=== PATIENT | female | born 1985 | race African-American/Black ===

== ENCOUNTER 2016-02-21 07:34 | Emergency (ER) | payer OTHER ==
[2016-02-21 07:47] VITALS: TEMP 97.8; BMI 38.7
[2016-02-21 08:24] LABS: BASOPHIL 0.4 % (0-2.0); EOSINOPHIL 2.2 % (0-4.5); MCH 28.7 pg (25.7-33.7); MCHC 32.9 g/dl (32.0-36.0); MEAN CELL VOLUME 87.1 fl (80-96); MEAN PLT VOLUME 7.4 fl (7.5-11.1); PLATELET COUNT 247 K/MM3 (134-434); RDW 13.4 % (11.6-15.6); WHITE BLOOD COUNT 7.8 K/mm3 (4.0-10.0)
[2016-02-21 08:25] LABS: URINE APPEARANCE CLEAR; URINE BILIRUBIN NEGATIVE (NEGATIVE); URINE BLOOD NEGATIVE (NEGATIVE); URINE COLOR LTYELLOW; URINE GLUCOSE (UA) NEGATIVE (NEGATIVE); URINE KETONE NEGATIVE (NEGATIVE); URINE LEUK ESTERASE NEGATIVE (NEGATIVE); URINE NITRITE NEGATIVE (NEGATIVE); URINE PROTEIN NEGATIVE (NEGATIVE); URINE UROBILINOGEN NEGATIVE E.U./dl (0.2-1.0)
--- NOTE | 2016-02-21 08:26 | PDOC ---
History of Present Illness - General Chief Complaint: Vaginal Bleeding Stated Complaint: VAGINAL BLEEDING (6 WEEKS PREG0 Time Seen by Provider: 02/21/16 07:53 History Source: Patient Exam Limitations: No Limitations - History of Present Illness Initial Comments: CHIEF COMPLAINT: 30 y/o afebrile approximately 7 week female with LMP 12/30/15 c/o light vaginal bleeding today. HISTORY OF PRESENT ILLNESS: The patient states she wiped this morning after going to the bathroom and saw light pink blood on the toilet paper. She denies f/c, n/v/d, CP, SOB, abd pain, back pain, hematuria, dysuria. The patient's first appointment is scheduled for 02/27/16. Vital signs on arrival are within normal limits. REVIEW OF SYSTEMS: GENERAL/CONSTITUTIONAL: No fever/chills. No weakness. No weight change. HEAD, EYES, EARS, NOSE AND THROAT: No change in vision. No ear pain or discharge. No sore throat. CARDIOVASCULAR: No chest pain or shortness of breath. RESPIRATORY: No cough, wheezing, or hemoptysis. GASTROINTESTINAL: No abd pain, nausea, vomiting, diarrhea, constipation. + vaginal spotting. GENITOURINARY: No dysuria, frequency, or change in urination. MUSCULOSKELETAL: No joint or muscle swelling or pain. No neck or back pain. SKIN: No rash or easy bruising. PHYSICAL EXAM: GENERAL: The patient is awake, alert, and fully oriented, in no acute distress. She is morbidly obese, ambulatory, in NAD or obvious discomfort. HEAD: Normal with no signs of trauma. ENT: Pupils equal, round and reactive to light, extraocular movements intact, sclera anicteric, conjunctiva clear. Neck supple. LUNGS: Clear to auscultation bilaterally. Normal excursion. No respiratory distress or use of accessory muscles. CV: RRR, S1/S2, no MRG. Cap refill < 2 sec. ABDOMEN: Soft, non-distended, non-tender even to deep palpation, no hepatomegaly or splenomegaly, no masses. VAGINAL: Scant brown blood in vaginal canal. Os closed. EXTREMITIES: Normal range of motion, no edema. NEUROLOGICAL: Normal speech, normal gait. CN II-XII grossly intact. PSYCH: Normal mood, normal affect. SKIN: Warm, dry, normal turgor, no rashes or lesions noted. Past History - Past Medical History Allergies/Adverse Reactions: Allergies Allergy/AdvReac Type Severity Reaction Status Date / Time No Known Allergies Allergy Verified 02/21/16 07:42 Home Medications: Ambulatory Orders NK [No Known Home Medication] 01/13/15 Asthma: No - Surgical History Abdominal Surgery: Yes - Reproductive History (#): 2 Para: 0 Therapeutic (s) & number: No Spontaneous : 0 - Psycho/Social/Smoking Cessation Hx Anxiety: No Suicidal Ideation: No Smoking History: Never smoked Have you smoked in the past 12 months: No Number of Cigarettes Smoked Daily: 3 If you are a former smoker, when did you quit?: 07/2013 Hx Alcohol Use: No Drug/Substance Use Hx: No Substance Use Type: None *Physical Exam - Vital Signs Last Vital Signs Temp Pulse Resp BP Pulse Ox 97.8 F 90 20 118/71 100 02/21/16 07:39 02/21/16 07:39 02/21/16 07:39 02/21/16 07:39 02/21/16 07:39 ED Treatment Course - LABORATORY CBC & Chemistry Diagram: 02/21/16 08:05 02/21/16 08:08 - RADIOLOGY Radiology Studies Ordered: Category Date Time Status TRANSVAGINAL US PREG [US] Stat Ultrasound 02/21/16 07:54 Ordered Medical Decision Making - Medical Decision Making A/P: 30 y/o approximately 7 week female with vaginal spotting this morning. Plan is as follows: 1. labs 2. UA/culture 3. Beta 4. type and screen 5. transvaginal ultrasound Transvaginal Ultrasound IMPRESSION: No intrauterine gestational sac is identified. Ectopic vs miscarriage vs early . Beta hcg 01/27 = 3000 beta hcg 02/20 = 549 Gave the patient her results. Instructed her that she may be miscarrying but would need to keep her f/u appointment on 02/26 to confirm. Instructed her to return to the ER immediately with any worsening or concerning symptoms. The patient verbalizes understanding of all instructions, has no further questions and is awaiting discharge. *DC/Admit/Observation/Transfer Diagnosis at time of Disposition: Threatened in first trimester - Discharge Dispostion Disposition: HOME Condition at time of disposition: Stable Admit: No - Referrals Referrals: Mary Bronson MD [Primary Care Provider] - - Patient Instructions Printed Discharge Instructions: DI for Threatened Additional Instructions: Discharge Instructions: -Your beta hcg on 01/27 was 3000. Your beta hcg on 02/20 was 549. This suggests miscarriage. 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 -Return to the ER immediately with any worsening or concerning symptoms
[2016-02-21 08:44] LABS: ALBUMIN 3.5 g/dl (3.4-5.0); ALK PHOS 88 U/L (45-117); ANION GAP 9 (8-16); BILIRUBIN,TOTAL 0.2 mg/dL (0.2-1.0); CALCIUM 8.2 mg/dL (8.5-10.1); CO2 26 mmol/L (21-32); CREATININE 0.6 mg/dL (0.55-1.02); GLUCOSE,RANDOM 100 mg/dL (74-106); SGOT/AST 13 U/L (15-37); SGPT/ALT 29 U/L (12-78); TOT PROT 6.8 g/dl (6.4-8.2)
[2016-02-21 10:37] VITALS: BP 113/76; PULSE 91
== END 2016-02-21 10:37 | disposition home or self-care (01) ==
LOC: JER 07:34
DX: O20.0 Threatened abortion (principal); Z3A.01 Less than 8 weeks gestation of pregnancy
CPT/HCPCS: 36415; 76817-TC; 80053; 81003; 84702; 85025; 86850; 86900; 86901; 99283-25

== ENCOUNTER 2016-03-07 14:24 | Emergency (ER) | payer OTHER ==
[2016-03-07 14:50] VITALS: BP 125/72; PULSE 95; TEMP 98.7; BMI 38.7
--- NOTE | 2016-03-07 17:04 | PDOC ---
[id number] 4d ABD PAIN Time Seen by Provider: 03/07/16 16:42 History Source: Patient Exam Limitations: No Limitations - History of Present Illness Initial Comments: 03/07/16 17:03 CHIEF COMPLAINT: Vaginal bleeding HISTORY OF PRESENT ILLNESS: This is a previously healthy 30 year old female who was seen here on 02/20 for vaginal bleeding in . She was found to have falling hcg levels and was told that she was likely having a spontaneous . She did follow up with obstetrics/gynecology nurse, but states she was never told definitively whether she had a miscarriage. There is no documented IUP here. She presents today complaining of light vaginal bleeding, RLQ cramping pain, and dysuria. She denies fevers/chills or any other symptoms. V/s on arrival are notable for P 95. REVIEW OF SYSTEMS: GENERAL/CONSTITUTIONAL: No fever or chills. No weakness. No weight change. HEAD, EYES, EARS, NOSE AND THROAT: No change in vision. No ear pain or discharge. No sore throat. CARDIOVASCULAR: No chest pain or palpitations. RESPIRATORY: No cough, wheezing, or shortness of breath. GASTROINTESTINAL: No nausea, vomiting, diarrhea or constipation. GENITOURINARY: See HPI. MUSCULOSKELETAL: No joint or muscle swelling or pain. No neck or back pain. SKIN: No rash or easy bruising. NEUROLOGIC: No headache, vertigo, loss of consciousness, or loss of sensation. PSYCHIATRIC: No depression or anxiety. ENDOCRINE: No increased thirst. No abnormal weight change. HEMATOLOGIC/LYMPHATIC: No anemia, easy bleeding, or history of blood clots. ALLERGIC/IMMUNOLOGIC: No hives or skin allergy. No latex allergy. PHYSICAL EXAM: GENERAL: The patient is awake, alert, and fully oriented, in no acute distress. ENT: Pupils equal, round and reactive to light, extraocular movements intact, sclera anicteric, conjunctiva clear. Neck supple. LUNGS: Clear to auscultation bilaterally. Normal excursion. No respiratory distress or use of accessory muscles. CV: RRR, S1/S2, no MRG. Cap refill < 2 sec. ABDOMEN: Soft, non-distended, mildly tender to palpation in right pelvis. EXTREMITIES: Normal range of motion, no edema. NEUROLOGICAL: Normal speech, normal gait. CN II-XII grossly intact. PSYCH: Normal mood, normal affect. SKIN: Warm, dry, normal turgor, no rashes or lesions noted. MOLECULAR BIOLOGY SCIENTIST: Normal external exam. Cervix long, closed, posterior. No blood visualized. Right adnexal tenderness. Past History - Past Medical History Allergies/Adverse Reactions: Allergies Allergy/AdvReac Type Severity Reaction Status Date / Time No Known Allergies Allergy Verified 03/07/16 14:48 Home Medications: Ambulatory Orders Cephalexin Monohydrate [Keflex -] 500 mg PO Q6H #20 capsule 03/07/16 Ibuprofen 800 mg PO TID PRN #21 tablet 03/07/16 Asthma: Yes - Surgical History Abdominal Surgery: Yes - Reproductive History (#): 2 Para: 0 Cervical CA: No Dysfunctional Uterine Bleeding: No Ectopic : No Endometrial CA: No Polycystic Ovaries: No Therapeutic (s) & number: No Tubal Ligation: No Spontaneous : 0 - Psycho/Social/Smoking Cessation Hx Anxiety: No Suicidal Ideation: No Smoking History: Never smoked Have you smoked in the past 12 months: No Number of Cigarettes Smoked Daily: 3 If you are a former smoker, when did you quit?: 07/2013 Information on smoking cessation initiated: No Hx Alcohol Use: No Drug/Substance Use Hx: No Substance Use Type: None *Physical Exam - Vital Signs Last Vital Signs Temp Pulse Resp BP Pulse Ox 98.7 F 95 H 18 125/72 100 03/07/16 14:49 03/07/16 14:49 03/07/16 14:49 03/07/16 14:49 03/07/16 14:49 ED Treatment Course - LABORATORY CBC & Chemistry Diagram: 03/07/16 16:50 03/07/16 16:50 - RADIOLOGY Radiology Studies Ordered: Category Date Time Status TRANSVAGINAL ULTRASOUND US [US] Stat Ultrasound 03/07/16 16:43 Ordered Medical Decision Making - Medical Decision Making 03/07/16 17:08 A/P: 30 year old female with vaginal bleeding, RLQ pain, and dysuria. Differential includes but is not limited to UTI, retained POC, and ectopic (positive hcg on previous visits with no prior documentation of IUP). 1. Labs including CBC, BMP, bhcg 2. UA/culture 3. Transvaginal u/s 4. Tylenol 975mg po for pain 03/07/16 18:47 Bhcg 76 (550 on prior visit). UA with 12 WBCs, possibly consistent with UTI. Culture pending; will treat with Keflex. *DC/Admit/Observation/Transfer Diagnosis at time of Disposition: Adnexal mass - Discharge Dispostion Disposition: HOME - Prescriptions Prescriptions: Ibuprofen 800 mg PO TID PRN #21 tablet PRN Reason: Pain Cephalexin Monohydrate [Keflex -] 500 mg PO Q6H #20 capsule - Referrals Referrals: Anyi Segal MD [Staff Physician] - Mary Bronson MD [Primary Care Provider] - - Patient Instructions Additional Instructions: Please take medications as prescribed and follow up with Dr. Segal this week. If you experience sudden, severe abdominal pain, excessive bleeding (more than one pad per hour), nausea, vomiting, diarrhea, shortness of breath, headache, or any new or worsening symptoms, please return to the ER.
[2016-03-07] MEDS ORDERED: ACETAMINOPHEN 500 MG TABLET (FP) PO ONE (17:09)
[2016-03-07] MEDS ORDERED: ACETAMINOPHEN 325 MG TABLET (FP) ONE (17:12)
[2016-03-07 17:18] LABS: BASOPHIL 0.5 % (0-2.0); EOSINOPHIL 1.9 % (0-4.5); MCH 27.8 pg (25.7-33.7); MEAN CELL VOLUME 86.8 fl (80-96); MEAN PLT VOLUME 7.6 fl (7.5-11.1); NEUTROPHILS 54.1 % (42.8-82.8); PLATELET COUNT 251 K/MM3 (134-434); RDW 13.4 % (11.6-15.6); WHITE BLOOD COUNT 8.4 K/mm3 (4.0-10.0)
--- NOTE | 2016-03-07 17:46 | PDOC ---
[id number]/72 100 03/07/16 14:49 03/07/16 14:49 03/07/16 14:49 03/07/16 14:49 03/07/16 14:49 ED Treatment Course - LABORATORY CBC & Chemistry Diagram: 03/07/16 16:50 03/07/16 16:50 - ADDITIONAL ORDERS Additional order review: 03/07/16 16:50 RBC 4.52 MCV 86.8 MCHC 32.0 RDW 13.4 MPV 7.6 Neutrophils % 54.1 Lymphocytes % 35.2 D Monocytes % 8.3 Eosinophils % 1.9 Basophils % 0.5 - Medications Given in the ED: ED Medications Discontinued Medications Generic Name Dose Route Start Last Admin Trade Name Freq PRN Reason Stop Dose Admin Acetaminophen 975 mg 03/07/16 17:09 03/07/16 17:11 Tylenol - PO 03/07/16 17:10 975 mg ONCE ONE Administration Medical Decision Making - Medical Decision Making 03/07/16 17:45 Pt seen by the Advanced Practice Provider under my direct supervision Ancillary studies reviewed I agree with plan as outlined by the Advanced Practice Provider JEFERSON De La Rosa *DC/Admit/Observation/Transfer Diagnosis at time of Disposition: Adnexal mass - Discharge Dispostion Disposition: HOME - Prescriptions Prescriptions: Ibuprofen 800 mg PO TID PRN #21 tablet PRN Reason: Pain Cephalexin Monohydrate [Keflex -] 500 mg PO Q6H #20 capsule - Referrals Referrals: Anyi Segal MD [Staff Physician] - Mary Bronson MD [Primary Care Provider] - - Patient Instructions Additional Instructions: Please take medications as prescribed and follow up with Dr. Segal this week. If you experience sudden, severe abdominal pain, excessive bleeding (more than one pad per hour), nausea, vomiting, diarrhea, shortness of breath, headache, or any new or worsening symptoms, please return to the ER.
[2016-03-07 18:00] LABS: URINE APPEARANCE CLOUDY; URINE BILIRUBIN NEGATIVE (NEGATIVE); URINE COLOR YELLOW; URINE GLUCOSE (UA) NEGATIVE (NEGATIVE); URINE KETONE NEGATIVE (NEGATIVE); URINE NITRITE NEGATIVE (NEGATIVE); URINE PROTEIN NEGATIVE (NEGATIVE); URINE UROBILINOGEN NEGATIVE E.U./dl (0.2-1.0)
[2016-03-07 18:05] LABS: URINE BLOOD 3+ (NEGATIVE); URINE LEUK ESTERASE TRACE (NEGATIVE)
[2016-03-07 18:07] LABS: URINE MUCUS MANY; URINE RBC 2 /hpf (0-3); URINE WBC 12 /hpf (3-5)
[2016-03-07 18:07] LABS: CALCIUM 8.5 mg/dL (8.5-10.1); CREATININE 0.7 mg/dL (0.55-1.02)
[2016-03-07] MEDS ORDERED: CEPHALEXIN MONOHYDRATE 500 MG CAPSULE (UD) PO ONE (18:47)
[2016-03-07] MEDS ORDERED: CEPHALEXIN MONOHYDRATE 250 MG CAPSULE (FP) ONE (18:56)
--- NOTE | 2016-03-07 19:22 | PDOC ---
*Physical Exam - Vital Signs Last Vital Signs Temp Pulse Resp BP Pulse Ox 98.7 F 95 H 18 125/72 100 03/07/16 14:49 03/07/16 14:49 03/07/16 14:49 03/07/16 14:49 03/07/16 14:49 - Physical Exam Comments: 03/07/16 19:21 Sign-out received from outgoing ER provider Estrella. Pt interviewed and examined. Ancillary studies reviewed. UA positive for 12 WBC, will treat with Keflex. Awaiting ultrasound results to r/o retained POC. 03/07/16 20:38 Ultrasound results indicate nonspecific spherical mildly heterogeneous 3.5 cm soft tissue focus within right adnexa niterposed between a normal-appearing right ovary and the uterine border. It is uncertain whether this focus could represent an ectpic versus representing a pedunculated uterine leioyoma which was not appreciated on the previous exam. Additional evaluation utilizing MRI (versus laparoscopy) may be considered. Each ovary demonstrates no discrete abnormality. No free fluid identified. Ready by Lukas Hill MD. Discussed case with on-call COMPETITIVE SHOPPER MD Segal. At this time due to betas trending down, it does not appear likely that this is an ectopic . Per MD Segal, may discharge home with close outpatient follow up. -Motrin 800 mg po TID PRN pain sent to pharmacy Advised patient to take medications as prescribed and follow up with COMPETITIVE SHOPPER. Advised patient of signs and symptoms for return to ED; patient verbalized undesrtanding and agrees to plan. ED Treatment Course - LABORATORY CBC & Chemistry Diagram: 03/07/16 16:50 03/07/16 16:50 - ADDITIONAL ORDERS Additional order review: Laboratory Results 03/07/16 03/07/16 17:25 16:50 Sodium 138 Potassium 3.8 Chloride 102 Carbon Dioxide 29 Anion Gap 7 L BUN 13 Creatinine 0.7 Random Glucose 85 Calcium 8.5 Beta HCG, Quant 76.0 Urine Color Yellow Urine Appearance Cloudy Urine pH 5.0 Ur Specific [place] 1.031 Urine Protein Negative Urine Glucose (UA) Negative Urine Ketones Negative Urine Blood 3+ H Urine Nitrite Negative Urine Bilirubin Negative Urine Urobilinogen Negative Ur Leukocyte Esterase Trace H Urine RBC 2 Urine WBC 12 Ur Epithelial Cells Many Urine Mucus Many 03/07/16 16:50 RBC 4.52 MCV 86.8 MCHC 32.0 RDW 13.4 MPV 7.6 Neutrophils % 54.1 Lymphocytes % 35.2 D Monocytes % 8.3 Eosinophils % 1.9 Basophils % 0.5 - Medications Given in the ED: ED Medications Discontinued Medications Generic Name Dose Route Start Last Admin Trade Name Freq PRN Reason Stop Dose Admin Acetaminophen 975 mg 03/07/16 17:09 03/07/16 17:11 Tylenol - PO 03/07/16 17:10 975 mg ONCE ONE Administration Cephalexin HCl 500 mg 03/07/16 18:47 03/07/16 18:57 Keflex - PO 03/07/16 18:48 500 mg ONCE ONE Administration *DC/Admit/Observation/Transfer Diagnosis at time of Disposition: Adnexal mass - Discharge Dispostion Disposition: HOME Condition at time of disposition: Stable Admit: No - Prescriptions Prescriptions: Ibuprofen 800 mg PO TID PRN #21 tablet PRN Reason: Pain Cephalexin Monohydrate [Keflex -] 500 mg PO Q6H #20 capsule - Referrals Referrals: Mary Bronson MD [Primary Care Provider] - Anyi Segal MD [Staff Physician] - - Patient Instructions Additional Instructions: Please take medications as prescribed and follow up with Dr. Segal this week. If you experience sudden, severe abdominal pain, excessive bleeding (more than one pad per hour), nausea, vomiting, diarrhea, shortness of breath, headache, or any new or worsening symptoms, please return to the ER.
== END 2016-03-07 21:01 | disposition home or self-care (01) ==
LOC: JER 14:24
DX: R19.03 Right lower quadrant abdominal swelling, mass and lump (principal)
CPT/HCPCS: 36415; 76830-TC; 80048; 81003; 81015; 84702; 85025; 87086; 99283-25

== ENCOUNTER 2016-06-21 19:14 | Emergency (ER) | payer SELFPAY ==
[2016-06-21 19:30] VITALS: BMI 37.1
--- NOTE | 2016-06-21 20:02 | PDOC ---
History of Present Illness - General History Source: Patient, Old Records Exam Limitations: No Limitations - History of Present Illness Initial Comments: 06/21/16 21:51 The patient is a 30 year old female, with a significant past medical history of asthma, who presents to the emergency department with abdominal pain, nausea and vomiting for the past 2 hours. She describes her abdominal pain as localized in the epigastric region, ranging from moderate to severe, without radiation or modifying factors. She describes her vomit as nonbloody and nonbilious. The patient denies chest pain, shortness of breath, headache and dizziness. Denies fever, chills, diarrhea and constipation. Denies dysuria, frequency, urgency and hematuria. Allergies: None Past surgical history: None reported Social history: No alcohol, tobacco or drug use reported <Tay Gabriel - Last Filed: 06/21/16 21:51> <Berenice Canela - Last Filed: 06/22/16 00:22> - General Chief Complaint: Nausea/Vomiting Stated Complaint: VOMITING BLOOD Time Seen by Provider: 06/21/16 19:46 Past History <Tay Gabriel - Last Filed: 06/21/16 21:51> - Past Medical History Asthma: Yes - Surgical History Abdominal Surgery: Yes - Reproductive History (#): 2 Para: 0 Cervical CA: No Dysfunctional Uterine Bleeding: No Ectopic : No Endometrial CA: No Polycystic Ovaries: No Therapeutic (s) & number: No Tubal Ligation: No Spontaneous : 0 - Immunization History Immunization Up to Date: Yes - Psycho/Social/Smoking Cessation Hx Anxiety: No Suicidal Ideation: No Smoking History: Never smoked Have you smoked in the past 12 months: No Number of Cigarettes Smoked Daily: 3 If you are a former smoker, when did you quit?: 07/2013 Information on smoking cessation initiated: No Hx Alcohol Use: No Drug/Substance Use Hx: No Substance Use Type: None <Berenice Canela - Last Filed: 06/22/16 00:22> - Past Medical History Allergies/Adverse Reactions: Allergies Allergy/AdvReac Type Severity Reaction Status Date / Time No Known Allergies Allergy Verified 06/21/16 19:25 Home Medications: Ambulatory Orders Ondansetron [Zofran Odt -] 4 mg SL TID PRN #6 od.tablet 06/22/16 Review of Systems - Review of Systems Able to Perform ROS?: Yes Comments:: 06/21/16 21:51 GENERAL/CONSTITUTIONAL: No fever or chills. No weakness. HEAD, EYES, EARS, NOSE AND THROAT: No change in vision. No ear pain or discharge. No sore throat. CARDIOVASCULAR: No chest pain or shortness of breath RESPIRATORY: No cough, wheezing, or hemoptysis. GASTROINTESTINAL: (+) Abdominal pain, nausea, vomiting. No diarrhea or constipation. GENITOURINARY: No dysuria, frequency, or change in urination. MUSCULOSKELETAL: No joint or muscle swelling or pain. No neck or back pain. SKIN: No rash NEUROLOGIC: No headache, vertigo, loss of consciousness, or change in strength/ sensation. ENDOCRINE: No increased thirst. No abnormal weight change HEMATOLOGIC/LYMPHATIC: No anemia, easy bleeding, or history of blood clots. ALLERGIC/IMMUNOLOGIC: No hives or skin allergy. <Tay Gabriel - Last Filed: 06/21/16 21:51> *Physical Exam - Vital Signs Last Vital Signs Temp Pulse Resp BP Pulse Ox 98.3 F 95 H 17 141/85 99 06/21/16 19:26 06/21/16 19:26 06/21/16 19:26 06/21/16 19:26 06/21/16 19:26 - Physical Exam Comments: 06/21/16 21:52 GENERAL: Awake, alert, and fully oriented, in no acute distress HEAD: No signs of trauma, normocephalic, atraumatic EYES: PERRLA, EOMI, sclera anicteric, conjunctiva clear ENT: Auricles normal inspection, hearing grossly normal, nares patent, oropharynx clear without exudates. Moist mucosa NECK: Normal ROM, supple, no lymphadenopathy, JVD, or masses LUNGS: No distress, speaks full sentences, clear to auscultation bilaterally HEART: Regular rate and rhythm, normal S1 and S2, no murmurs, rubs or gallops, peripheral pulses normal and equal bilaterally. ABDOMEN: +Epigastric tenderness. Soft, normoactive bowel sounds. No guarding, no rebound. No masses EXTREMITIES: Normal inspection, Normal range of motion, no edema. No clubbing or cyanosis. NEUROLOGICAL: Cranial nerves II through XII grossly intact. Normal speech, normal gait, no focal sensorimotor deficits SKIN: Warm, Dry, normal turgor, no rashes or lesions noted. <Tay Gabriel - Last Filed: 06/21/16 21:51> - Vital Signs Last Vital Signs Temp Pulse Resp BP Pulse Ox 98.3 F 95 H 17 141/85 99 06/21/16 19:26 06/21/16 19:26 06/21/16 19:26 06/21/16 19:26 06/21/16 19:26 <Berenice Canela - Last Filed: 06/22/16 00:22> ED Treatment Course - LABORATORY CBC & Chemistry Diagram: 06/21/16 20:16 06/21/16 20:16 - ADDITIONAL ORDERS Additional order review: Laboratory Results 06/21/16 06/21/16 06/21/16 20:16 20:16 20:16 Sodium 138 Potassium 3.7 Chloride 101 Carbon Dioxide 27 Anion Gap 10 BUN 10 D Creatinine 0.8 Creat Clearance w eGFR > 60 Random Glucose 110 H D Calcium 8.4 L Total Bilirubin 0.6 D AST 19 D ALT 26 Alkaline Phosphatase 57 D Total Protein 7.4 Albumin 4.1 Lipase 89 Serum , Qual Negative Urine Color Yellow Urine Appearance Clear Urine pH 5.0 Ur Specific [place] 1.033 Urine Protein Negative Urine Glucose (UA) Negative Urine Ketones 1+ H Urine Blood Negative Urine Nitrite Negative Urine Bilirubin Negative Urine Urobilinogen Negative Ur Leukocyte Esterase Negative 06/21/16 20:16 RBC 4.50 MCV 86.0 MCHC 33.0 RDW 13.8 MPV 7.5 Neutrophils % 79.3 D Lymphocytes % 14.0 D Monocytes % 5.8 Eosinophils % 0.6 Basophils % 0.3 - Medications Given in the ED: ED Medications Discontinued Medications Generic Name Dose Route Start Last Admin Trade Name Freq PRN Reason Stop Dose Admin Sodium Chloride 1,000 mls @ 1,000 mls/hr 06/21/16 20:02 06/21/16 20:21 Normal Saline - IV 06/21/16 21:01 1,000 mls/hr ASDIR STA Administration Ondansetron HCl 4 mg 06/21/16 20:02 06/21/16 20:21 Zofran Injection IVPB 06/21/16 20:03 4 mg ONCE ONE Administration <Tay Gabriel - Last Filed: 06/21/16 21:51> - LABORATORY CBC & Chemistry Diagram: 06/21/16 20:16 06/21/16 20:16 <Berenice Canela - Last Filed: 06/22/16 00:22> *DC/Admit/Observation/Transfer - Attestations Scribe Attestion: 06/21/16 21:53 Documentation prepared by Tay Gabriel, acting as director of medical education for Berenice Canela MD <Tay Gabriel - Last Filed: 06/21/16 21:51> <Berenice Canela - Last Filed: 06/22/16 00:22> Diagnosis at time of Disposition: Epigastric pain Vomiting Qualifiers: Vomiting type: unspecified Vomiting Intractability: non-intractable Nausea presence: with nausea Qualified Code(s): R11.2 - Nausea with vomiting, unspecified - Discharge Dispostion Disposition: HOME Condition at time of disposition: Stable - Prescriptions Prescriptions: Ondansetron [Zofran Odt -] 4 mg SL TID PRN #6 od.tablet PRN Reason: Nausea And/Or Vomiting - Patient Instructions Printed Discharge Instructions: DI for Vomiting -- Adult, DI for Epigastric Pain Additional Instructions: please advance your diet as tolerated 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
[2016-06-21] MEDS ORDERED: ONDANSETRON 4 MG/2 ML VIAL ONE ×2 (20:09→21:58)
[2016-06-21] MEDS: ONDANSETRON 4 MG/2 ML VIAL IVPB ONE (20:21)
[2016-06-21] MEDS: SODIUM CHLORIDE 1,000 ML IV STA (20:21)
[2016-06-21 20:44] LABS: BASOPHIL 0.3 % (0-2.0); EOSINOPHIL 0.6 % (0-4.5); MCH 28.4 pg (25.7-33.7); MEAN PLT VOLUME 7.5 fl (7.5-11.1); NEUTROPHILS 79.3 % (42.8-82.8); PLATELET COUNT 269 K/MM3 (134-434); RDW 13.8 % (11.6-15.6); URINE APPEARANCE CLEAR; URINE BILIRUBIN NEGATIVE (NEGATIVE); URINE BLOOD NEGATIVE (NEGATIVE); URINE COLOR YELLOW; URINE GLUCOSE (UA) NEGATIVE (NEGATIVE); URINE KETONE 1+ (NEGATIVE); URINE LEUK ESTERASE NEGATIVE (NEGATIVE); URINE NITRITE NEGATIVE (NEGATIVE); URINE PROTEIN NEGATIVE (NEGATIVE); URINE UROBILINOGEN NEGATIVE E.U./dl (0.2-1.0); WHITE BLOOD COUNT 10.7 K/mm3 (4.0-10.0)
[2016-06-21 21:37] LABS: ALBUMIN 4.1 g/dl (3.4-5.0); ANION GAP 10 (8-16); BILIRUBIN,TOTAL 0.6 mg/dL (0.2-1.0); CALCIUM 8.4 mg/dL (8.5-10.1); CO2 27 mmol/L (21-32); CREATININE 0.8 mg/dL (0.55-1.02); GLUCOSE,RANDOM 110 mg/dL (74-106); SGOT/AST 19 U/L (15-37); SGPT/ALT 26 U/L (12-78); TOT PROT 7.4 g/dl (6.4-8.2)
[2016-06-21 21:38] LABS: ALK PHOS 57 U/L (45-117)
[2016-06-21] MEDS ORDERED: HYDROmorphone HCL CARPU-JECT 1 MG/1 ML DISP.SYRIN ONE (21:58)
[2016-06-21] MEDS: HYDROmorphone HCL CARPU-JECT 1 MG/1 ML DISP.SYRIN IVPUSH ONE (22:03)
[2016-06-21] MEDS: ONDANSETRON 4 MG/2 ML VIAL IVPUSH ONE ×2 (22:03)
[2016-06-22 00:35] VITALS: BP 136/61; PULSE 85; TEMP 97.6
[2016-06-22] MEDS ORDERED: HEMOQUE CONTROL SOLUTION ONE (01:55)
== END 2016-06-22 00:36 | disposition home or self-care (01) ==
LOC: JER 19:14
PROC: 3E033GC Introduction of Other Therapeutic Substance into Peripheral Vein, Percutaneous Approach (ICD-10-PCS; principal; 2016-06-21)
PROC: 3E033NZ Introduction of Analgesics, Hypnotics, Sedatives into Peripheral Vein, Percutaneous Approach (ICD-10-PCS; 2016-06-21)
DX: R11.2 Nausea with vomiting, unspecified (principal); R10.13 Epigastric pain
CPT/HCPCS: 36415; 76705-TC; 80053; 81003; 83690; 84703; 85025; 99283-25

== ENCOUNTER 2017-06-19 05:02 | Emergency (ER) | payer SELFPAY ==
[2017-06-19 05:26] VITALS: BP 124/88; PULSE 80; TEMP 97.9; BMI 28.2
--- NOTE | 2017-06-19 05:32 | PDOC ---
History of Present Illness - General Chief Complaint: Ear Problem Stated Complaint: BLEEDING LEFT EAR History Source: Patient Exam Limitations: No Limitations - History of Present Illness Initial Comments: 06/19/17 05:26 Patient is a 31-year-old female with no past medical history here with complaints of bleeding from the left ear. States she woke up with blood on her pillow. Said all day she has been feeling like pressure in the ear-popping sound and had to yawn to have the pressure go away. Last night before bed she used a Q-tip to clean the ear in efforts to relieve the pressure and then woke up with blood on the pillow. complaints that she has decreased hearing to the left ear. She denies any cough, fever, sinus congestion PMD: 2 Park PMHX: as above PSOCHX: ALL: NKDA GENERAL/CONSTITUTIONAL: [No fever or chills. No weakness. No weight change.] HEAD, EYES, EARS, NOSE AND THROAT: [No change in vision. (+) ear pressure (+) discharge. No sore throat.] CARDIOVASCULAR: [No chest pain or shortness of breath.] RESPIRATORY: [No cough, wheezing, or hemoptysis.] GASTROINTESTINAL: [No nausea, vomiting, diarrhea or constipation. No rectal bleeding.] GENITOURINARY: [No dysuria, frequency, or change in urination.] MUSCULOSKELETAL: [No joint or muscle swelling or pain. No neck or back pain.] SKIN AND BREASTS: [No rash or easy bruising.] NEUROLOGIC: [No headache, vertigo, loss of consciousness, or loss of sensation.] PSYCHIATRIC: [No depression or anxiety.] ENDOCRINE: [No increased thirst. No abnormal weight change.] HEMATOLOGIC/LYMPHATIC: [No anemia, easy bleeding, or history of blood clots.] ALLERGIC/IMMUNOLOGIC: [No hives or skin allergy. No latex allergy.] GENERAL: [The patient is awake, alert, and fully oriented, in no acute distress. ] HEAD: [Normal with no signs of trauma.] EYES: [Pupils equal, round and reactive to light, extraocular movements intact, sclera anicteric, conjunctiva clear.] ENT: [Ears, (+) blood in the left external canal, TM identified and some blood around the TM, nares patent, oropharynx clear without exudates. Moist mucous membranes., no sinus tenderness NECK: [Normal range of motion, supple without lymphadenopathy, JVD, or masses.] LUNGS: [Breath sounds equal, clear to auscultation bilaterally. No wheezes, and no crackles.] HEART: [Regular rate and rhythm, normal S1 and S2 without murmur, rub.] ABDOMEN: [Soft, nontender, normoactive bowel sounds. No guarding, no rebound. No masses.] EXTREMITIES: [Normal range of motion, no edema. No clubbing or cyanosis. No cords, erythema, or tenderness.] NEUROLOGICAL: [Cranial nerves II through XII grossly intact. Normal speech, normal gait.] PSYCH: [Normal mood, normal affect.] SKIN: [Warm, Dry, normal turgor, no rashes or lesions noted.] Past History - Past Medical History Allergies/Adverse Reactions: Allergies Allergy/AdvReac Type Severity Reaction Status Date / Time No Known Allergies Allergy Verified 06/19/17 05:13 Home Medications: Ambulatory Orders Ciprofloxacin HCl/Dexameth [Ciprodex Otic Suspension] 4 drop BID #1 bottle Asthma: Yes COPD: No - Surgical History Abdominal Surgery: Yes - Reproductive History (#): 2 Para: 0 Cervical CA: No Dysfunctional Uterine Bleeding: No Ectopic : No Endometrial CA: No Polycystic Ovaries: No Therapeutic (s) & number: No Tubal Ligation: No Spontaneous : 0 - Immunization History Immunization Up to Date: Yes - Suicide/Smoking/Psychosocial Hx Smoking History: Former smoker Have you smoked in the past 12 months: No Number of Cigarettes Smoked Daily: 3 If you are a former smoker, when did you quit?: 07/2013 Information on smoking cessation initiated: No Hx Alcohol Use: No Drug/Substance Use Hx: No Substance Use Type: None *Physical Exam - Vital Signs Last Vital Signs Temp Pulse Resp BP Pulse Ox 97.9 F 80 18 124/88 100 06/19/17 05:14 06/19/17 05:14 06/19/17 05:14 06/19/17 05:14 06/19/17 05:14 Medical Decision Making - Medical Decision Making 06/19/17 05:26 Patient is a 31-year-old female with no past medical history here with complaints of bleeding from the left ear most likely due to instrumentation. antibx ear drops ENT referral. I discussed the physical exam findings, ancillary test results and final diagnoses with the patient. I answered all of the patient's questions. The patient was satisfied with the care received and felt comfortable with the discharge plan and treatment plan. The Patient agrees to follow up with the primary care physician within 24-72 hours. *DC/Admit/Observation/Transfer Diagnosis at time of Disposition: Bleeding from left ear Barotrauma, otic Qualifiers: Encounter type: initial encounter Qualified Code(s): T70.0XXA - Otitic barotrauma, initial encounter - Discharge Dispostion Disposition: HOME Condition at time of disposition: Stable - Referrals Referrals: Ryan Craig MD [Staff Physician] - - Patient Instructions Printed Discharge Instructions: DI for Barotrauma Additional Instructions: Your Discharge Instructions: You must call primary care physician within 24 hours to arrange follow-up. Return to the Emergency Department with any new, persistent or worsening symptoms, for fever, chills, SOB, dizziness or any other concerning changes that may occur. Do not put any instrument, Q-tip in the ear. Use 2 drops as prescribed. Cover the ear when in the shower. You must follow-up with the ear nose and throat doctor within a week. - Post Discharge Activity
== END 2017-06-19 05:47 | disposition home or self-care (01) ==
LOC: JER 05:02
DX: T70.0XXA Otitic barotrauma, initial encounter (principal); H92.22 Otorrhagia, left ear; Z87.891 Personal history of nicotine dependence
CPT/HCPCS: 99281-25

== ENCOUNTER 2017-11-25 04:34 | Emergency (ER) | payer OTHER ==
--- NOTE | 2017-11-25 04:50 | PDOC ---
Attending Attestation - Resident Resident Name: Lukas Douglass - ED Attending Attestation I have performed the following: I have examined & evaluated the patient, The case was reviewed & discussed with the resident, I agree w/resident's findings & plan
[2017-11-25 04:53] VITALS: BMI 43.2
--- NOTE | 2017-11-25 05:02 | PDOC ---
History of Present Illness - General Chief Complaint: Pain, Acute Stated Complaint: ABDOMINAL PAIN, CONSTIPATION Time Seen by Provider: 11/25/17 04:43 History Source: Patient, Old Records Exam Limitations: No Limitations - History of Present Illness Travel History: No Initial Comments: 11/25/17 04:56 HISTORY OF PRESENT ILLNESS: This is a 32-year-old woman past medical history of uterine fibroids presents emergency Department with lower abdominal pain for the past 2 days. Patient reports the pain is located in the suprapubic area and is unable to describe quality of the pain. Patient's the pain started as 7/10 and has progressively increased in 10/30 presently. Patient states the pain is different than her usual fibroid pain. Patient reports her last bowel movement was 2 days ago any usual bowel pattern of daily bowel movements. Patient states she tried to move her bowels today and had to push really hard and was only to pass a few small firm pieces of stool. She denies hematuria, dysuria, rectal bleeding, diarrhea, vaginal discharge, vaginal bleeding. Patient reports LMP was 11/06 and lasted for 4 days. No recent travel or sick contacts. PAST MEDICAL HISTORY: uterine fibroids SURGICAL HISTORY: Denies ALLERGIES: No known drug allergies REVIEW OF SYSTEMS General/Constitutional: Denies fever or chills. Denies weakness, weight change. HEENT: Denies change in vision. Denies ear pain or discharge. Denies sore throat. Cardiovascular: Denies chest pain or shortness of breath. Respiratory: Denies cough, wheezing, or hemoptysis. Gastrointestinal: Denies nausea, vomiting, diarrhea. +constipation. Denies rectal bleeding. Genitourinary: Denies dysuria, frequency, or change in urination. Musculoskeletal: Denies joint or muscle swelling or pain. Denies neck or back pain. Skin and breasts: Denies rash or easy bruising. Neurologic: Denies headache, vertigo, loss of consciousness, or loss of sensation. Psychiatric: Denies depression or anxiety. Endocrine: Denies increased thirst. Denies abnormal weight change. Hematologic/Lymphatic: Denies anemia, easy bleeding, or history of blood clots. Allergic/Immunologic: Denies hives or skin allergy. Denies latex allergy. PHYSICAL EXAM General Appearance: Well-appearing, appropriately dressed. No apparent distress , no intoxication. HEENT: EOMI, PERRLA, normal ENT inspection, normal voice, TMs normal, pharynx normal. No conjunctival pallor. No photophobia, scleral icterus. Neck: Supple. Trachea midline. No tenderness, rigidity, carotid bruit, stridor , lymphadenopathy, or thyromegaly. Respiratory/Chest: Lungs CTAB. No shortness of breath, chest tenderness, respiratory distress, accessory muscle use. No crackles, rales, rhonchi, stridor , wheezing, dullness Cardiovascular: RRR. S1, S2. No JVD, murmur, bradycardia, tachycardia. Vascular Pulses: Dorsalis-Pedis (R): 2+, Dorsalis-Pedis (L): 2+ Gastrointestinal/Abdominal: Obese abdomen. Normal bowel sounds. Abdomen soft, non-distended. No tenderness or rebound tenderness. No organomegaly, pulsatile mass, guarding, hernia, hepatomegaly, splenomegaly. Lymphatic: No adenopathy, tenderness. Musculoskeletal/Extremities: Normal inspection. FROM of all extremities, normal capillary refill. Pelvis Stable. No CVA tenderness. No tenderness to extremities, pedal edema, swelling, erythema or deformity. Integumentary: Appropriate color, dry, warm. 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 Fully oriented, alert. Appropriate mood/affect. Motor strength 5/5. No appreciable EOM palsy, facial droop or sensory deficit. Past History - Past Medical History Allergies/Adverse Reactions: Allergies Allergy/AdvReac Type Severity Reaction Status Date / Time No Known Allergies Allergy Verified 11/25/17 04:51 Home Medications: Ambulatory Orders NK [No Known Home Medication] 11/25/17 Asthma: Yes COPD: No - Surgical History Abdominal Surgery: Yes - Reproductive History (#): 2 Para: 0 Cervical CA: No Dysfunctional Uterine Bleeding: No Ectopic : No Endometrial CA: No Polycystic Ovaries: No Therapeutic (s) & number: No Tubal Ligation: No Spontaneous : 0 - Immunization History Immunization Up to Date: Yes - Suicide/Smoking/Psychosocial Hx Smoking History: Never smoked Have you smoked in the past 12 months: No Number of Cigarettes Smoked Daily: 3 If you are a former smoker, when did you quit?: 07/2013 Information on smoking cessation initiated: No Hx Alcohol Use: No Drug/Substance Use Hx: No Substance Use Type: None *Physical Exam - Vital Signs Last Vital Signs Temp Pulse Resp BP Pulse Ox 98.5 F 97 H 20 130/79 98 11/25/17 04:51 11/25/17 04:51 11/25/17 04:51 11/25/17 04:51 11/25/17 04:51 Medical Decision Making - Medical Decision Making 11/25/17 05:06 A/P: 32-year-old female history of uterine fibroids with lower abdominal pain for 2 days Normoactive bowel sounds Obese abdomen soft nontender nondistended. No palpable masses present firm mobile stool in vault Urine, reassess 11/25/17 06:21 Patient free of pain after receiving MiraLAX and toradol. I will discharge the patient home to follow-up with her primary doctor. *DC/Admit/Observation/Transfer Diagnosis at time of Disposition: Constipation Qualifiers: Constipation type: unspecified constipation type Qualified Code(s): K59.00 - Constipation, unspecified - Discharge Dispostion Disposition: HOME Condition at time of disposition: Stable Decision to Admit order: No - Referrals - Patient Instructions Additional Instructions: Keep well-hydrated. Follow-up with your primary doctor for continued evaluation. Return to emergency department for any concerns. - Post Discharge Activity
[2017-11-25 05:18] LABS: URINE APPEARANCE CLEAR; URINE BILIRUBIN NEGATIVE (<2.0 mg/dL); URINE COLOR LTYELLOW; URINE GLUCOSE (UA) NEGATIVE (NEGATIVE); URINE KETONE NEGATIVE (NEGATIVE); URINE LEUK ESTERASE NEGATIVE (NEGATIVE); URINE NITRITE NEGATIVE (NEGATIVE); URINE PROTEIN NEGATIVE (NEGATIVE); URINE UROBILINOGEN NEGATIVE mg/dL (0.2-1.0)
[2017-11-25 05:21] LABS: HCG,QUALITATIVE URINE Negative
[2017-11-25] MEDS ORDERED: POLYETHYLENE GLYCOL 3350 119 GM BTL PO ONE (05:26)
[2017-11-25] MEDS ORDERED: KETOROLAC TROMETHAMINE 30 MG/1 ML VIAL IM ONE (05:27)
[2017-11-25 07:02] VITALS: BP 130/91; PULSE 111; TEMP 97.7
== END 2017-11-25 07:00 | disposition home or self-care (01) ==
LOC: JER 04:34
DX: K59.00 Constipation, unspecified (principal); Z86.2 Personal history of diseases of the blood and blood-forming organs and certain disorders involving the immune mechanism
CPT/HCPCS: 81003; 84703; 87086; 99282-25

== ENCOUNTER 2017-11-26 06:33 | Emergency (ER) | payer OTHER ==
[2017-11-26 07:08] VITALS: BMI 41.9
[2017-11-26] MEDS ORDERED: SODIUM CHLORIDE 1,000 ML IV STA (07:17)
[2017-11-26] MEDS ORDERED: FAMOTIDINE 20 MG/50 ML IVPB 20 MG/50 ML MG IVPB ONE ×2 (07:17→08:10)
[2017-11-26] MEDS ORDERED: MAG HYDROX/AL HYDROX/SIMETH -MYLANTA- ORAL SUSPENSION PO ONE (08:07)
[2017-11-26 08:14] LABS: BASO % 0.5 % (0-2.0); EOS % 0.4 % (0-4.5); HEMATOCRIT 39.8 % (32.4-45.2); HEMOGLOBIN 13.1 GM/dL (10.7-15.3); LYMPH % 12.7 % (8-40); MCH 28.4 pg (25.7-33.7); MEAN CELL VOLUME 86.2 fl (80-96); MEAN PLT VOLUME 7.4 fl (7.5-11.1); MONO % 10.6 % (3.8-10.2); NEUT % 75.8 % (42.8-82.8); PLATELET COUNT 255 K/MM3 (134-434); RBC 4.62 M/mm3 (3.60-5.2); RDW 13.5 % (11.6-15.6)
[2017-11-26] MEDS ORDERED: MAG HYDROX/AL HYDROX/SIMETH 30 ML UNIT-DOSE CUP ONE (08:15)
[2017-11-26 08:18] LABS: URINE APPEARANCE CLOUDY; URINE BILIRUBIN NEGATIVE (<2.0 mg/dL); URINE COLOR DKYELLOW; URINE GLUCOSE (UA) NEGATIVE (NEGATIVE); URINE KETONE TRACE (NEGATIVE); URINE LEUK ESTERASE NEGATIVE (NEGATIVE); URINE NITRITE NEGATIVE (NEGATIVE); URINE PROTEIN NEGATIVE (NEGATIVE); URINE UROBILINOGEN NEGATIVE mg/dL (0.2-1.0)
--- NOTE | 2017-11-26 08:33 | PDOC ---
History of Present Illness - General Chief Complaint: Pain, Acute Stated Complaint: ABDOMINAL PAIN Time Seen by Provider: 11/26/17 07:43 History Source: Patient - History of Present Illness Timing/Duration: reports: constant Quality: reports: other Abdominal Pain Onset Location: reports: generalized abdomen Past History - Past Medical History Allergies/Adverse Reactions: Allergies Allergy/AdvReac Type Severity Reaction Status Date / Time No Known Allergies Allergy Verified 11/26/17 07:06 Home Medications: Ambulatory Orders Famotidine [Pepcid] 20 mg PO DAILY #14 tablet 11/26/17 Asthma: Yes COPD: No CHF: No - Surgical History Abdominal Surgery: Yes - Reproductive History (#): 2 Para: 0 Cervical CA: No Dysfunctional Uterine Bleeding: No Ectopic : No Endometrial CA: No Polycystic Ovaries: No Therapeutic (s) & number: No Tubal Ligation: No Spontaneous : 0 - Immunization History Immunization Up to Date: Yes - Suicide/Smoking/Psychosocial Hx Smoking History: Never smoked Have you smoked in the past 12 months: No Number of Cigarettes Smoked Daily: 3 If you are a former smoker, when did you quit?: 07/2013 Information on smoking cessation initiated: No Hx Alcohol Use: No Drug/Substance Use Hx: No Substance Use Type: None Review of Systems - Review of Systems Constitutional: No: Chills, Fever ABD/GI: Yes: Constipated, Abdominal cramping. No: Blood Streaked Bowels, Diarrhea, Nausea, Rectal Bleeding, Vomiting : No: Burning, Dysuria, Discharge, Flank Pain, Hematuria Musculoskeletal: No: Back Pain *Physical Exam - Vital Signs Last Vital Signs Temp Pulse Resp BP Pulse Ox 98.4 F 114 H 20 126/82 96 11/26/17 06:35 11/26/17 06:35 11/26/17 06:35 11/26/17 06:35 11/26/17 06:35 - Physical Exam General Appearance: Yes: Appropriately Dressed, Mild Distress HEENT: positive: Normal Voice Neck: positive: Supple Respiratory/Chest: negative: Respiratory Distress Female Pelvic Exam: positive: normal external exam, cervical os closed, normal adnexa. negative: CMT, discharge, adnexal tenderness Gastrointestinal/Abdominal: positive: Tender (sig ttp to epigastrium, minimal ttp to periumbilicus and mid lower abd, NT over mcburneys or RUQ) Musculoskeletal: negative: CVA Tenderness Integumentary: positive: Dry, Warm Neurologic: positive: Fully Oriented, Alert, Normal Mood/Affect ED Treatment Course - LABORATORY CBC & Chemistry Diagram: 11/26/17 07:57 11/26/17 07:57 Medical Decision Making - Medical Decision Making 11/26/17 08:36 32-year-old female, morbid obesity, fibroids, here with abdominal pain. Pt reports diffuse abdominal pain that started 3 days ago, most notably in the epigastric area, described as cramping and constant w/ severity of 8/10 and causes her "to double over in pain" per pt. No a/w food. No nausea, vomiting, fever, chills, dysuria, hematuria or vaginal discharge. Was seen in ED for pain yesterday and diagnosed with constipation after pt reported no BM for 2 days (usually goes daily per pt) Currently taking MiraLAX and Dulcolax and has since had several episodes of watery stools per patient. No BRBPR or melena. No history of similar pain. Sexually active w/ longtime male partner only per pt See exam Possible gastritis, unlikely ariel, pancreatitis, appy, UTI, torsion, PID/TOA -GI cocktail -labs -reassess 11/26/17 08:41 11/26/17 10:12 Patient reports feeling significantly better with meds. Labs unremarkable. Will dc w/ pepcid and have patient follow-up with PMD if symptoms persist *DC/Admit/Observation/Transfer Diagnosis at time of Disposition: Epigastric pain - Discharge Dispostion Disposition: HOME Condition at time of disposition: Improved - Prescriptions Prescriptions: Famotidine [Pepcid] 20 mg PO DAILY #14 tablet - Referrals - Patient Instructions Printed Discharge Instructions: Gastritis Additional Instructions: Take medication as prescribed If pain persists, please follow up with your PMD - Post Discharge Activity Forms/Work/School Notes: Back to Work
[2017-11-26 08:35] LABS: ALBUMIN 3.7 g/dl (3.4-5.0); ALK PHOS 54 U/L (45-117); ANION GAP 7 MMOL/L (8-16); BILIRUBIN,TOTAL 0.9 mg/dL (0.2-1); BLOOD UREA NITROGEN 6 mg/dL (7-18); CALCIUM 8.7 mg/dL (8.5-10.1); CHLORIDE 103 mmol/L (98-107); CO2 26 mmol/L (21-32); CREATININE 0.8 mg/dL (0.55-1.3); GLUCOSE,RANDOM 131 mg/dL (74-106); LIPASE 59 U/L (73-393); POTASSIUM 3.8 mmol/L (3.5-5.1); SGOT/AST 14 U/L (15-37); SGPT/ALT 24 U/L (13-61); SODIUM 136 mmol/L (136-145); TOT PROT 7.4 g/dl (6.4-8.2)
[2017-11-26] MEDS ORDERED: SUCRALFATE 1 GM TABLET (FP) PO ONE (09:10)
[2017-11-26] MEDS ORDERED: ACETAMINOPHEN 1000 MG/100 ML VIAL (NON FORMULARY) IVPB ONE (09:10)
[2017-11-26] MEDS ORDERED: SUCRALFATE 1 GM TABLET (FP) ONE (09:42)
[2017-11-26] MEDS ORDERED: ACETAMINOPHEN INJECTION 100 ML IVPB ONE (09:43)
[2017-11-26 10:42] VITALS: BP 118/71; PULSE 92; TEMP 98.2
== END 2017-11-26 10:42 | disposition home or self-care (01) ==
LOC: JER 06:33
PROC: 3E033GC Introduction of Other Therapeutic Substance into Peripheral Vein, Percutaneous Approach (ICD-10-PCS; principal; 2017-11-26)
PROC: 3E033NZ Introduction of Analgesics, Hypnotics, Sedatives into Peripheral Vein, Percutaneous Approach (ICD-10-PCS; 2017-11-26)
DX: R10.13 Epigastric pain (principal); E66.01 Morbid (severe) obesity due to excess calories; Z68.41 Body mass index [BMI] 40.0-44.9, adult; Z86.2 Personal history of diseases of the blood and blood-forming organs and certain disorders involving the immune mechanism
CPT/HCPCS: 36415; 80053; 81003; 83690; 84703; 85025; 87086; 96365; 96375; 99284-25; J0131; J7030

== ENCOUNTER 2017-12-01 03:45 | Emergency (ER) | payer OTHER ==
[2017-12-01] MEDS ORDERED: ONDANSETRON 4 MG/2 ML VIAL IVPB ONE (04:22)
[2017-12-01] MEDS ORDERED: KETOROLAC TROMETHAMINE 30 MG/1 ML VIAL IM ONE (04:22)
[2017-12-01] MEDS ORDERED: ONDANSETRON 4 MG TABLET PO ONE ×2 (04:31→05:00)
--- NOTE | 2017-12-01 04:37 | PDOC ---
History of Present Illness - General Stated Complaint: ABDOMINAL PAIN Time Seen by Provider: 12/01/17 04:05 History Source: Patient Exam Limitations: No Limitations - History of Present Illness Initial Comments: 12/01/17 04:32 Pt is a 32yo f with PMH of uterine fibroids presenting to ED with complaints of lower abdominal pain associated with constipation that has been going on for 1 week. Pt said pain started last Monday, was epigastric but has traveled down worsened with eating and having bowel movements, not alleviated by anything. Associated with nausea and 1 episode of nbnb emesis today prior to ED arrival. Pt says she has been taking Miralax and magnesium citrate but it has not been helping. She had one episode of diarrhea today but states her last BM was 1 week ago on . She was seen in fast track 5 days ago for similar complaints and was told to use laxatives. She denies blood in the stool, dark stool, fevers, chest pain, sob, headaches, flank pain, urinary symptoms, vaginal bleeding/discharge. LMP was November 08. She denies history of STD. PCP: none PMH: uterine fibroids PSH: Meds: none Allergies; nkda Past History - Past Medical History Allergies/Adverse Reactions: Allergies Allergy/AdvReac Type Severity Reaction Status Date / Time No Known Allergies Allergy Verified 11/26/17 07:06 Home Medications: Ambulatory Orders Famotidine [Pepcid] 20 mg PO DAILY #14 tablet 11/26/17 Peg 3350/Na Sulf,Bicarb,Cl/KCl [Golytely Solution -] 4,000 ml PO ONCE #1 soln.recon 12/01/17 Asthma: Yes COPD: No CHF: No GI Disorders: Yes (constipation) - Surgical History Abdominal Surgery: Yes - Reproductive History (#): 2 Para: 0 Cervical CA: No Dysfunctional Uterine Bleeding: No Ectopic : No Endometrial CA: No Polycystic Ovaries: No Therapeutic (s) & number: No Tubal Ligation: No Spontaneous : 0 - Immunization History Immunization Up to Date: Yes - Suicide/Smoking/Psychosocial Hx Smoking History: Never smoked Have you smoked in the past 12 months: No Number of Cigarettes Smoked Daily: 3 If you are a former smoker, when did you quit?: 07/2013 Hx Alcohol Use: No Drug/Substance Use Hx: No Substance Use Type: None Review of Systems - Review of Systems Constitutional: No: Chills, Fever HEENTM: Yes: Nose Congestion. No: Recent change in vision, Throat Pain Respiratory: No: Cough, Shortness of Breath Cardiac (ROS): No: Chest Pain, Lightheadedness, Palpitations, Syncope ABD/GI: Yes: Constipated, Diarrhea (1 episode diarrhea today), Nausea, Vomiting (1 episode emesis today), Abdominal cramping (suprapubic). No: Blood Streaked Bowels, Rectal Bleeding, Tarry Stools : No: Burning, Dysuria, Frequency Musculoskeletal: No: Back Pain, Neck Pain Neurological: No: Headache, Numbness, Tingling *Physical Exam - Physical Exam General Appearance: Yes: Appropriately Dressed, Obese. No: Apparent Distress HEENT: positive: EOMI, SANDRA, Pharynx Normal, Nasal Congestion, Rhinorrhea. negative: Pale Conjunctivae, Scleral Icterus (R), Scleral Icterus (L) Neck: positive: Trachea midline, Supple. negative: Lymphadenopathy (R), Lymphadenopathy (L) Respiratory/Chest: positive: Lungs Clear, Normal Breath Sounds. negative: Labored Respiration, Crackles, Rales, Rhonchi, Stridor Cardiovascular: positive: Regular Rhythm, Regular Rate, S1, S2. negative: Edema , JVD, Murmur Vascular Pulses: Carotid (R): 2+, Carotid (L): 2+, Dorsalis-Pedis (R): 2+, Doralis-Pedis (L): 2+ Gastrointestinal/Abdominal: positive: Normal Bowel Sounds, Soft, Tenderness ( suprapubic. no ttp in RLQ, LLQ or elsewhere). 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 Miralax and mg citrate has not helped. Vitals: PE: suprapubic abdominal tenderenss. Low suspicion for ovarian/pelvic cause of pain due to pt not having bowel movements, more GI in nature. DDx: uti, pyelo, nephrolithiasis, colitis, constipation low suspicion for pyelo and nephro given gestalt and pt not having urinary sx or flank pain/tenderness. 12/01/17 05:04 Pt given Toradol for pain and zofran for nausea. CBC, CMP, Lipase sent. UA and Upreg. Will order xray of abdomen. Will reevaluate 12/01/17 05:16 CBC wnl, upreg negative will send for xray. ua negative for infection. 12/01/17 05:56 cmp wnl. Awaiting xray Upon reevaluation, pt was asleep 12/01/17 06:15 *DC/Admit/Observation/Transfer Diagnosis at time of Disposition: Abdominal pain Qualifiers: Abdominal location: lower abdomen, unspecified Qualified Code(s): R10.30 - Lower abdominal pain, unspecified Constipation Qualifiers: Constipation type: unspecified constipation type Qualified Code(s): K59.00 - Constipation, unspecified - Discharge Dispostion Disposition: HOME Condition at time of disposition: Good Decision to Admit order: No - Prescriptions Prescriptions: Peg 3350/Na Sulf,Bicarb,Cl/KCl [Golytely Solution -] 4,000 ml PO ONCE #1 soln.recon - Referrals Referrals: Manuel Crawford DO [Staff Physician] - - Patient Instructions Printed Discharge Instructions: DI for Abdominal Pain-Adult, DI for Constipation Additional Instructions: You were seen here today for evaluation of abdominal pain. All your tests were normal. Xray showed stool in the colon. I recommend following up with a primary care doctor. I have given you a card with the primary care doctors affiliated with this hospital. All you have to do is call and schedule an appointment. I also recommend seeing a university dean. You can call Dr. Crawford . You have a prescription for GoLytly sent to your pharmacy. Take as directed. Please come back to the emergency room if: pain gets worse, you are not having bowel movements, there is blood in the stool, you develop fever, you start vomiting or if any new concerning symptom develops. Thank you - Post Discharge Activity
[2017-12-01] MEDS ORDERED: ONDANSETRON *ODT* 4 MG TABLET ONE (04:51)
[2017-12-01] MEDS ORDERED: KETOROLAC TROMETHAMINE 30 MG/1 ML VIAL ONE (04:51)
[2017-12-01] MEDS ORDERED: ONDANSETRON 8 MG TABLET (FP) PO ONE (04:52)
[2017-12-01 05:06] LABS: BASO % 0.5 % (0-2.0); EOS % 1.7 % (0-4.5); HEMATOCRIT 37.8 % (32.4-45.2); HEMOGLOBIN 12.6 GM/dL (10.7-15.3); MCH 28.5 pg (25.7-33.7); MCHC 33.4 g/dl (32.0-36.0); MEAN CELL VOLUME 85.5 fl (80-96); MEAN PLT VOLUME 6.9 fl (7.5-11.1); MONO % 9.3 % (3.8-10.2); NEUT % 73.5 % (42.8-82.8); PLATELET COUNT 283 K/MM3 (134-434); RBC 4.43 M/mm3 (3.60-5.2); RDW 13.6 % (11.6-15.6); WHITE BLOOD COUNT 8.9 K/mm3 (4.0-10.0)
[2017-12-01 05:08] LABS: URINE APPEARANCE CLEAR; URINE BILIRUBIN NEGATIVE (<2.0 mg/dL); URINE COLOR LTYELLOW; URINE GLUCOSE (UA) NEGATIVE (NEGATIVE); URINE KETONE NEGATIVE (NEGATIVE); URINE LEUK ESTERASE NEGATIVE (NEGATIVE); URINE NITRITE NEGATIVE (NEGATIVE); URINE PROTEIN NEGATIVE (NEGATIVE); URINE UROBILINOGEN NEGATIVE mg/dL (0.2-1.0)
--- NOTE | 2017-12-01 05:08 | PDOC ---
Attending Attestation - Resident Resident Name: Rochelle Wagner - ED Attending Attestation I have performed the following: I have examined & evaluated the patient, The case was reviewed & discussed with the resident, I agree w/resident's findings & plan, Exceptions are as noted - HPI HPI: 12/01/17 05:06 32yoF 3rd ER visit within past week for abd pain and constipation. Dx w/ constipation and tx w/ bowel regimen. Pt has small watery bowel movement earlier today and her upper abdomen feels better, however still w/ lower abd pain, nausea, difficulty tolerating PO and episode of vomiting earlier this evening. + pain when straining to defecate. AF, VSS NAD obese mild ttp diffuse lower abdomen, no guarding, no rebound A&O x 3. 32yoF w/ likley constipation, however recurrent visits w/o relief, will do more workup. - labs - AXR - consider CTAP - sxs control - if this is constipation only, consider aggressive bowel regimen w/ GoLytely.
[2017-12-01 05:11] LABS: HCG,QUALITATIVE URINE Negative
[2017-12-01 05:18] VITALS: BP 123/78; PULSE 89; TEMP 99
[2017-12-01 05:29] LABS: ALBUMIN 3.4 g/dl (3.4-5.0); ALK PHOS 51 U/L (45-117); ANION GAP 5 MMOL/L (8-16); BILIRUBIN,TOTAL 0.7 mg/dL (0.2-1); BLOOD UREA NITROGEN 7 mg/dL (7-18); CALCIUM 8.5 mg/dL (8.5-10.1); CHLORIDE 108 mmol/L (98-107); CO2 27 mmol/L (21-32); CREATININE 0.7 mg/dL (0.55-1.3); GLUCOSE,RANDOM 106 mg/dL (74-106); LIPASE 85 U/L (73-393); POTASSIUM 4.1 mmol/L (3.5-5.1); SGOT/AST 9 U/L (15-37); SGPT/ALT 20 U/L (13-61); SODIUM 139 mmol/L (136-145); TOT PROT 6.9 g/dl (6.4-8.2)
== END 2017-12-01 07:21 | disposition home or self-care (01) ==
LOC: JER 03:45
PROC: 3E0233Z Introduction of Anti-inflammatory into Muscle, Percutaneous Approach (ICD-10-PCS; principal; 2017-12-01)
DX: R10.30 Lower abdominal pain, unspecified (principal); K59.00 Constipation, unspecified; Z87.891 Personal history of nicotine dependence; J45.909 Unspecified asthma, uncomplicated
CPT/HCPCS: 36415; 74018-TC-FY; 80053; 81003; 83690; 84703; 85025; 96372; 99283-25

== ENCOUNTER 2017-12-01 17:40 | Inpatient (IN) | payer OTHER ==
--- NOTE | 2017-12-01 17:49 | PDOC ---
Rapid Medical Evaluation Chief Complaint: Pain, Acute Time Seen by Provider: 12/01/17 17:49 Medical Evaluation: Allergies Allergy/AdvReac Type Severity Reaction Status Date / Time No Known Allergies Allergy Verified 12/01/17 17:46 12/01/17 17:49 lower abdominal pain seen in the ED earlier had labs and abxray. patient is diagnosed with constipation currently on loaxatives. reports watery diarrhea PE: patient alert ox3. mucosaq moist A: abdominal pain P: cbc, cmp,IVF, zofran patient to the ER further management of care. Discharge Disposition - Diagnosis Abdominal pain Qualifiers: Abdominal location: lower abdomen, unspecified Qualified Code(s): R10.30 - Lower abdominal pain, unspecified - Referrals - Patient Instructions - Post Discharge Activity
[2017-12-01] MEDS ORDERED: ONDANSETRON 4 MG/2 ML VIAL IVPB ONE (17:52)
[2017-12-01] MEDS ORDERED: SODIUM CHLORIDE 1,000 ML IV STA (17:52)
[2017-12-01] MEDS ORDERED: ONDANSETRON 4 MG/2 ML VIAL ONE (18:09)
[2017-12-01 18:50] LABS: BASO % 0.2 % (0-2.0); EOS % 0.5 % (0-4.5); HEMATOCRIT 38.6 % (32.4-45.2); HEMOGLOBIN 12.4 GM/dL (10.7-15.3); MCH 27.5 pg (25.7-33.7); MCHC 32.3 g/dl (32.0-36.0); MEAN CELL VOLUME 85.4 fl (80-96); MEAN PLT VOLUME 7.1 fl (7.5-11.1); MONO % 8.5 % (3.8-10.2); NEUT % 79.8 % (42.8-82.8); PLATELET COUNT 281 K/MM3 (134-434); RBC 4.52 M/mm3 (3.60-5.2); WHITE BLOOD COUNT 13.1 K/mm3 (4.0-10.0)
--- NOTE | 2017-12-01 18:57 | PDOC ---
History of Present Illness - General History Source: Patient Exam Limitations: No Limitations - History of Present Illness Travel History: No Initial Comments: 12/01/17 18:56 Best Contact: PCP: Brad Greene Pmhx: Fibroids Pshx: 2005/C Section Allergies: NKDA FH:0 Social Hx: Cigarettes/ 0 Alcohol/ social Drugs/ Denies LMP: 11/17/2017 32-year-old female presents to the emergency department for the second time today complaining of lower mid to right lower abdominal discomfort. Pain is described as 9/10 dull nonradiating intermittent discomfort without fever, chills, nausea/vomiting, neck pain/stiffness, back pains, flank pains, chest pain, shortness of breath, urinary symptoms: Frequency/urgency/hesitancy, hematuria. Pain is exacerbated on touch and and is alleviated minimally at rest. Patient states she was discharged home earlier today with constipation. Patient reports the pain initially started approximately 5 days ago and has subsided and returned again today. Patient took [id number] laxatives with minimal relief. Last bowel movement 4 days ago. <Sandra Tirado - Last Filed: 12/02/17 02:17> <Randy Beckman - Last Filed: 12/05/17 13:59> - General Chief Complaint: Pain, Acute Stated Complaint: ABD PAIN Time Seen by Provider: 12/01/17 17:49 Past History - Past Medical History Asthma: Yes COPD: No CHF: No GI Disorders: Yes (constipation) - Surgical History Abdominal Surgery: Yes - Reproductive History (#): 2 Para: 0 Cervical CA: No Dysfunctional Uterine Bleeding: No Ectopic : No Endometrial CA: No Polycystic Ovaries: No Therapeutic (s) & number: No Tubal Ligation: No Spontaneous : 0 - Immunization History Immunization Up to Date: Yes - Suicide/Smoking/Psychosocial Hx Smoking History: Unknown if ever smoked Have you smoked in the past 12 months: No Number of Cigarettes Smoked Daily: 3 If you are a former smoker, when did you quit?: 07/2013 Hx Alcohol Use: No Drug/Substance Use Hx: No Substance Use Type: None <Sandra Tirado - Last Filed: 12/02/17 02:17> <Randy Beckman - Last Filed: 12/05/17 13:59> - Past Medical History Allergies/Adverse Reactions: Allergies Allergy/AdvReac Type Severity Reaction Status Date / Time No Known Allergies Allergy Verified 12/01/17 17:46 Home Medications: Ambulatory Orders Famotidine [Pepcid] 20 mg PO DAILY #14 tablet 11/26/17 Amoxicillin/Potassium Clav [Augmentin 875-125 Tablet] 1 each PO Q12H 7 Days #14 tablet 12/05/17 Review of Systems - Review of Systems Able to Perform ROS?: Yes Comments:: 12/01/17 21:25 CONSTITUTIONAL: Absent: fever, chills, diaphoresis, generalized weakness, malaise, loss of appetite HEENT: Absent: rhinorrhea, nasal congestion, throat pain, throat swelling, difficulty swallowing, mouth swelling, ear pain, eye pain, visual Changes CARDIOVASCULAR: Absent: chest pain, loss of consciousness, palpitations, irregular heart rate, peripheral edema RESPIRATORY: Absent: cough, shortness of breath, dyspnea with exertion, orthopnea, wheezing, stridor, hemoptysis GASTROINTESTINAL: +RLQ pain/ mid lower abd pain Absent: abdominal distension, nausea, vomiting, diarrhea, constipation, melena, hematochezia GENITOURINARY: Absent: dysuria, frequency, urgency, hesitancy, hematuria, flank pain, genital pain MUSCULOSKELETAL: Absent: myalgia, arthralgia, joint swelling SKIN: Absent: rash, itching, pallor HEMATOLOGIC/IMMUNOLOGIC: Absent: easy bleeding, easy bruising, lymphadenopathy, frequent infections ENDOCRINE: Absent: unexplained weight gain, unexplained weight loss, heat intolerance, cold intolerance NEUROLOGIC: Absent: headache, focal weakness or paresthesias, dizziness, unsteady gait, seizure, mental status changes, bladder or bowel incontinence Is the patient limited Bulgarian proficient: No <Sandra Tirado - Last Filed: 12/02/17 02:17> *Physical Exam - Vital Signs Last Vital Signs Temp Pulse Resp BP Pulse Ox 99.4 F 114 H 22 H 138/98 98 12/01/17 17:50 12/01/17 17:50 12/01/17 17:50 12/01/17 17:50 12/01/17 17:50 - Physical Exam Comments: 12/01/17 21:25 GENERAL: Well developed, well nourished. Awake and alert. No acute distress. HEENT: Normocephalic, atraumatic. PERRLA, EOMI. No conjunctival pallor. Sclera are non- icteric. Moist mucous membranes. Oropharynx is clear. NECK: Supple. Full ROM. No JVD. Carotid pulses 2+ and symmetric, without bruits. No thyromegaly. No lymphadenopathy. CARDIOVASCULAR: Regular rate and rhythm. No murmurs, rubs, or gallops. Distal pulses are 2+ and symmetric. PULMONARY: No evidence of respiratory distress. Lungs clear to auscultation bilaterally. No wheezing, rales or rhonchi. ABDOMINAL: Mid lower abd pain/RLQ pain Soft. Non-distended. No rebound or guarding. No organomegaly. Normoactive bowel sounds. MUSCULOSKELETAL Normal range of motion at all joints. No bony deformities or tenderness. No CVA tenderness. EXTREMITIES: No cyanosis. No clubbing. No edema. No calf tenderness. SKIN: Warm and dry. Normal capillary refill. No rashes. No jaundice. NEUROLOGICAL: Alert, awake, appropriate. Cranial nerves 2-12 intact. No deficits to light touch and temperature in face, upper extremities and lower extremities. No motor deficits in the in face, upper extremities and lower extremities. Normoreflexic in the upper and lower extremities. Normal speech. Toes are down- going bilaterally. Gait is normal without ataxia. <Sandra Tirado - Last Filed: 12/02/17 02:17> - Vital Signs Last Vital Signs Temp Pulse Resp BP Pulse Ox 98.4 F 75 18 135/76 100 12/05/17 08:25 12/05/17 08:25 12/05/17 08:25 12/05/17 08:25 12/04/17 21:00 <Randy Beckman - Last Filed: 12/05/17 13:59> ED Treatment Course - LABORATORY CBC & Chemistry Diagram: 12/01/17 18:06 12/01/17 18:05 - Medications Given in the ED: ED Medications Discontinued Medications Generic Name Dose Route Start Last Admin Trade Name Freq PRN Reason Stop Dose Admin Sodium Chloride 1,000 mls @ 1,000 mls/hr 12/01/17 17:52 12/01/17 18:17 Normal Saline - IV 12/01/17 18:51 1,000 mls/hr ASDIR STA Administration Ondansetron HCl 4 mg 12/01/17 17:52 12/01/17 18:18 Zofran Injection IVPB 12/01/17 17:53 4 mg ONCE ONE Administration <Sandra Tirado - Last Filed: 12/02/17 02:17> - LABORATORY CBC & Chemistry Diagram: 12/05/17 06:30 12/05/17 06:30 - ADDITIONAL ORDERS Additional order review: 12/01/17 18:06 RBC 4.52 MCV 85.4 MCHC 32.3 RDW 13.0 MPV 7.1 L Neutrophils % 79.8 Lymphocytes % 11.0 D Monocytes % 8.5 Eosinophils % 0.5 Basophils % 0.2 - Medications Given in the ED: ED Medications Discontinued Medications Generic Name Dose Route Start Last Admin Trade Name Drake PRN Reason Stop Dose Admin Acetaminophen 1,000 mg 12/04/17 15:45 12/04/17 15:53 Ofirmev Injection - IVPB 12/04/17 15:46 Not Given ONCE ONE Sodium Chloride 1,000 mls @ 1,000 mls/hr 12/01/17 17:52 12/01/17 18:17 Normal Saline - IV 12/01/17 18:51 1,000 mls/hr ASDIR STA Administration Sodium Chloride 1,000 mls @ 150 mls/hr 12/02/17 01:45 12/02/17 02:07 Normal Saline - IV 150 mls/hr ASDIR RUPA Administration Piperacillin Sod/Tazobactam 100 mls @ 200 mls/hr 12/02/17 01:44 12/02/17 02: 06 Sod 4.5 gm/ Dextrose IVPB 12/02/17 02:13 200 mls/hr ONCE ONE Administration Protocol Piperacillin Sod/Tazobactam 100 mls @ 200 mls/hr 12/02/17 10:00 12/02/17 09: 26 Sod 4.5 gm/ Dextrose IVPB 12/02/17 10:29 200 mls/hr ONCE ONE Administration Protocol Dextrose/Sodium Chloride 1,000 mls @ 125 mls/hr 12/02/17 16:45 12/03/17 02:10 D5-1/2ns - IV 125 mls/hr ASDIR RUPA Administration Morphine Sulfate 2 mg 12/02/17 04:43 12/02/17 04:55 Morphine Sulfate IVPUSH 12/02/17 04:44 2 mg ONCE ONE Administration Ondansetron HCl 4 mg 12/01/17 17:52 12/01/17 18:18 Zofran Injection IVPB 12/01/17 17:53 4 mg ONCE ONE Administration Ondansetron HCl 4 mg 12/02/17 01:50 12/02/17 02:13 Zofran Injection IVPUSH 12/02/17 01:51 4 mg ONCE ONE Administration <Randy Beckman - Last Filed: 12/05/17 13:59> Medical Decision Making - Medical Decision Making The patient was seen and evaluated in conjunction with BURTON Tirado under my direct supervision, ancillary studies were reviewed. I agree with the plan as outlined by BURTON Tirado. <Randy Beckman - Last Filed: 12/05/17 13:59> *DC/Admit/Observation/Transfer - Discharge Dispostion Decision to Admit order: Yes <Sandra Tirado - Last Filed: 12/02/17 02:17> <Randy Beckman - Last Filed: 12/05/17 13:59> Diagnosis at time of Disposition: Perforation of sigmoid colon due to diverticulitis Abdominal pain Qualifiers: Abdominal location: lower abdomen, unspecified Qualified Code(s): R10.30 - Lower abdominal pain, unspecified - Discharge Dispostion Disposition: HOME Condition at time of disposition: Stable
[2017-12-01 19:17] LABS: ALBUMIN 3.6 g/dl (3.4-5.0); ALK PHOS 58 U/L (45-117); ANION GAP 12 MMOL/L (8-16); BILIRUBIN,TOTAL 0.8 mg/dL (0.2-1); BLOOD UREA NITROGEN 8 mg/dL (7-18); CALCIUM 8.9 mg/dL (8.5-10.1); CHLORIDE 104 mmol/L (98-107); CO2 25 mmol/L (21-32); CREATININE 0.6 mg/dL (0.55-1.3); GLUCOSE,RANDOM 108 mg/dL (74-106); SGOT/AST 12 U/L (15-37); SGPT/ALT 22 U/L (13-61); SODIUM 141 mmol/L (136-145); TOT PROT 7.4 g/dl (6.4-8.2)
[2017-12-01 22:26] LABS: URINE APPEARANCE SLCLOUDY; URINE BILIRUBIN NEGATIVE (<2.0 mg/dL); URINE COLOR YELLOW; URINE GLUCOSE (UA) NEGATIVE (NEGATIVE); URINE KETONE 1+ (NEGATIVE); URINE LEUK ESTERASE NEGATIVE (NEGATIVE); URINE NITRITE NEGATIVE (NEGATIVE); URINE PROTEIN NEGATIVE (NEGATIVE); URINE UROBILINOGEN NEGATIVE mg/dL (0.2-1.0)
[2017-12-01 22:27] LABS: HCG,QUALITATIVE URINE Negative
[2017-12-02] MEDS ORDERED: PIPERACILLIN/TAZOB 4.5 GM 4.5 GM in DEXTROSE 5%-WATER 100 ML IVPB ONE ×2 (01:44→10:00)
[2017-12-02] MEDS ORDERED: SODIUM CHLORIDE 1,000 ML IV SCH (01:45)
[2017-12-02] MEDS ORDERED: PIPERACILLIN/TAZOB 4.5 GM 4.5 GM/100 ML BAG IVPB ONE (01:49)
[2017-12-02] MEDS ORDERED: ONDANSETRON 4 MG/2 ML VIAL IVPUSH ONE (01:50)
[2017-12-02] MEDS ORDERED: ONDANSETRON 4 MG/2 ML VIAL ONE (02:09)
[2017-12-02 02:18] LABS: INR 1.25 (0.83-1.09); PROTHROMBIN TIME (PATIENT) 14.8 SEC (9.7-13.0)
--- NOTE | 2017-12-02 02:40 | PN ---
Teaching Attending Note Name of Resident: Donta Parsons ATTENDING PHYSICIAN STATEMENT I saw and evaluated the patient. I reviewed the resident's note and discussed the case with the resident. I agree with the resident's findings and plan as documented. SUBJECTIVE: Patient is a 32 year old woman with history of uterine fibroids who presents to the ER for the second time today complaining of lower mid to right lower abdominal discomfort. Pain is described as 9/10 dull nonradiating intermittent discomfort without fever, chills, nausea/vomiting, neck pain/stiffness, chest pain, shortness of breath, or urinary symptoms. Pain is exacerbated on touch and and is alleviated minimally at rest. Patient states she was discharged home earlier today with constipation. Patient reports the pain initially started approximately 5 days ago and has subsided and returned again today. Patient took ckia-oib-nwylzsl laxatives with minimal relief. Last bowel movement was 4 days ago. This is her 4th visit this month to the ER for abdominal pain and constipation. LMP is 11/06/17. OBJECTIVE: Alert Vital Signs Period Temp Pulse Resp BP Sys/Collins Pulse Ox Last 24 Hr 99.4 F 114 22 138/98 98 HEENT: No Jaundice, eye redness or discharge, PERRLA, EOMI. Normocephalic, atraumatic. External ears are normal and hearing is grossly intact. No nasal discharge. Neck: Supple, nontender. No palpable adenopathy or thyromegaly. No JVD Chest: Good effort. Clear to auscultation and percussion. Heart: Regular. No S3, rub or murmur Abdomen: Not distended, soft, lower abdominal tenderness and no HSM. No rebound or guarding. Normoactive bowel sounds. Ext: Peripheral pulses intact. No leg edema. Skin: Warm and dry. No petechiae, rash or ecchymosis. Neuro: Alert. Oriented x3. CN 2-12 grossly intact. Sensation grossly intact in all four extremities and DTR are symmetric. Current Medications Generic Name Dose Route Start Last Admin Trade Name Freq PRN Reason Stop Dose Admin Sodium Chloride 1,000 mls @ 150 mls/hr 12/02/17 01:45 12/02/17 02:07 Normal Saline - IV 150 mls/hr ASDIR RUPA Administration Home Medications Medication Instructions Recorded Famotidine [Pepcid] 20 mg PO DAILY #14 tablet 11/26/17 Peg 3350/Na Sulf,Bicarb,Cl/KCl 4,000 ml PO ONCE #1 soln.recon 12/01/17 [Golytely Solution -] Abnormal Lab Results 12/01/17 12/01/17 12/01/17 18:05 18:06 21:38 WBC 13.1 H MPV 7.1 L Absolute Neuts (auto) 10.5 H PT with INR INR Random Glucose 108 H AST 12 L Urine Ketones 1+ H 12/02/17 01:54 WBC MPV Absolute Neuts (auto) PT with INR 14.80 H INR 1.25 H Random Glucose AST Urine Ketones ASSESSMENT AND PLAN: 1. Sigmoid diverticulitis with microperforation - Patient have frequent bowel movements after laxative. Will continue Zosyn IV and consult ID. Surgeon Dr. De Jesus consulted. Continue IV NS. 2. DVT prophylaxis - Lovenox 40 mg SQ q 24 hours. 3. Advance directives - Full code
--- NOTE | 2017-12-02 03:19 | HP ---
CHIEF COMPLAINT: Abdominal pain PCP: HISTORY OF PRESENT ILLNESS: Patient is a 32 year old female with history of fibroids presenting with one week of abdominal pain. Described as cramping, diffuse throughout the abdomen worst at the right lower quadrant and epigastrium. She endorses the abdominal pain was associated with constipation, and bowel movements exacerbated the abdominal pain. At baseline, she has bowel movement daily without dyschezia. She had numerous episodes of billious vomiting over past two days, chills, and diaphoresis. Denies, fevers, shortness of breath, cough, chest pain, palpitations, diarrhea. ER course was notable for: (1) CT abdomen pelvis; focal sigmoid inflammation with microperforation. (2) WBC 13.1 (3) Recent Travel: PAST MEDICAL HISTORY: Uterine fibroids PAST SURGICAL HISTORY: Denies Social History: Smoking: former smoker. Used to smoke 3-5 cigarettes a day for 15 years. Quit Alcohol: socially drinks 4 cups of hard liquor mixed with juice, on weekends. Drugs: denies Family History: Allergies No Known Allergies Allergy (Verified 12/01/17 17:46) HOME MEDICATIONS: Home Medications Medication Instructions Recorded Famotidine [Pepcid] 20 mg PO DAILY #14 tablet 11/26/17 Peg 3350/Na Sulf,Bicarb,Cl/KCl 4,000 ml PO ONCE #1 soln.recon 12/01/17 [Golytely Solution -] REVIEW OF SYSTEMS CONSTITUTIONAL: Admits: diaphoresis, chills, malaise. Absent: fever. HEENT: Absent: rhinorrhea, nasal congestion, throat pain, difficulty swallowing, mouth swelling, visual changes CARDIOVASCULAR: Absent: chest pain, syncope, palpitations, irregular heart rate, lightheadedness RESPIRATORY: Absent: cough, shortness of breath, dyspnea with exertion, orthopnea, wheezing GASTROINTESTINAL: Admitsd: abdominal pain, nausea, vomiting, constipation (resolved) Absent: melena, hematochezia GENITOURINARY: Absent: dysuria, frequency, urgency, hesitancy, hematuria MUSCULOSKELETAL: Absent: myalgia, arthralgia, SKIN: Absent: rash, itching, pallor NEUROLOGIC: Absent: headache, focal weakness or paresthesias, dizziness, unsteady gait, bladder or bowel incontinence PHYSICAL EXAMINATION Vital Signs - 24 hr 10/12/18 10/13/18 17:50 02:59 Temperature 99.4 F 98.6 F Pulse Rate 114 H Pulse Rate [ 89 Left Radial] Respiratory 22 H 19 Rate Blood Pressure 138/98 Blood Pressure 136/78 [Right Arm] O2 Sat by Pulse 98 Oximetry (%) GENERAL: Patient is awake, alert, and fully oriented, in mild distress. Appears stated age. HEAD: Normal with no signs of trauma. EYES: Pupils equal, round and reactive to light, extraocular movements intact b/ l. Sclera anicteric, conjunctiva non-injected b/l. EARS, NOSE, THROAT: Oropharynx clear without exudates erythema, or lesion. Moist mucous membranes. NECK: Normal range of motion, supple without lymphadenopathy, JVD, or masses. LUNGS: Breath sounds equal, clear to auscultation bilaterally. No wheezes, no rhonchi. No accessory muscle use. HEART: Regular rate and rhythm, normal S1 and S2 without murmur, rub or gallop. ABDOMEN: Soft, distended. Tender to palpation at RLQ. No guarding, no rebound tendernes. Normoactive bowel sounds X4 quadrants. Hepatomegaly appreciated 4cm below costal margin. MUSCULOSKELETAL: Normal range of motion at all joints. Strength 5/5 b/l upper and lower extremities. UPPER EXTREMITIES: 2+ radial pulses b/l, warm, well-perfused. LOWER EXTREMITIES: 2+ dorsalis pedis pulses b/l, warm, well-perfused. No calf tenderness b/l. No lower extremity edema. NEUROLOGICAL: Cranial nerves II-XII intact. Normal speech. Normal gait. PSYCHIATRIC: Cooperative. Good eye contact. Appropriate mood and affect. SKIN: Warm, dry, normal turgor, no rashes or lesions noted, normal capillary refill. Laboratory Results - last 24 hr 12/01/17 12/01/17 12/01/17 18:05 18:06 21:38 WBC 13.1 H RBC 4.52 Hgb 12.4 Hct 38.6 MCV 85.4 MCH 27.5 MCHC 32.3 RDW 13.0 Plt Count 281 MPV 7.1 L Absolute Neuts (auto) 10.5 H Neutrophils % 79.8 Lymphocytes % 11.0 D Monocytes % 8.5 Eosinophils % 0.5 Basophils % 0.2 Nucleated RBC % 0 PT with INR INR Sodium 141 Potassium 4.0 Chloride 104 Carbon Dioxide 25 Anion Gap 12 BUN 8 Creatinine 0.6 Creat Clearance w eGFR > 60 Random Glucose 108 H Calcium 8.9 Total Bilirubin 0.8 AST 12 L ALT 22 Alkaline Phosphatase 58 Total Protein 7.4 Albumin 3.6 Urine Color Yellow Urine Appearance Slcloudy Urine pH 5.0 D Ur Specific [place] 1.015 Urine Protein Negative Urine Glucose (UA) Negative Urine Ketones 1+ H Urine Blood Negative Urine Nitrite Negative Urine Bilirubin Negative Urine Urobilinogen Negative Ur Leukocyte Esterase Negative Urine HCG, Qual Negative ASSESSMENT/PLAN: Patient is a 32 year old female with history of fibroids presenting with one week of abdominal pain associated with constipation. Abdominal Pain -CT scan preliminary reading shows focal sigmoid inflammation with microperforation, suggestive of inflamed diverticulum vs collitis. -F/U official CT abdomen, pelvis read -Zosyn 4.5 grams IV Q8H (patient received one dose in ED. -Surgery consult (Dr. De Jesus) -ID consult (Dr. Carmona) -IV normal saline at 150mL/hour -NPO FEN -IV normal saline at 150mL/hour -Follow CMP -NPO pending surgical consult Prophylaxis -Lovenox 40mg subq daily Disposition -Admit to medical-surgical floor Visit type - Emergency Visit Emergency Visit: Yes ED Registration Date: 12/02/17 Care time: The patient presented to the Emergency Department on the above date and was hospitalized for further evaluation of their emergent condition. - New Patient This patient is new to me today: Yes Date on this admission: 12/02/17 - Critical Care Critical Care patient: No
[2017-12-02] MEDS ORDERED: ACETAMINOPHEN 325 MG TABLET (FP) PO PRN (04:33)
[2017-12-02] MEDS ORDERED: MORPHINE SULFATE 2 MG/ML VIAL IVPUSH ONE (04:43)
[2017-12-02 07:44] LABS: HEMATOCRIT 35.9 % (32.4-45.2); HEMOGLOBIN 11.9 GM/dL (10.7-15.3); MCH 28.2 pg (25.7-33.7); MCHC 33.3 g/dl (32.0-36.0); MEAN CELL VOLUME 84.7 fl (80-96); PLATELET COUNT 251 K/MM3 (134-434); RBC 4.23 M/mm3 (3.60-5.2); RDW 13.6 % (11.6-15.6); WHITE BLOOD COUNT 11.4 K/mm3 (4.0-10.0)
[2017-12-02 07:57] LABS: INR 1.23 (0.83-1.09); PROTHROMBIN TIME (PATIENT) 14.6 SEC (9.7-13.0)
[2017-12-02 08:34] LABS: ALBUMIN 3.2 g/dl (3.4-5.0); ALK PHOS 54 U/L (45-117); ANION GAP 8 MMOL/L (8-16); BILIRUBIN,TOTAL 0.8 mg/dL (0.2-1); BLOOD UREA NITROGEN 6 mg/dL (7-18); CALCIUM 7.9 mg/dL (8.5-10.1); CHLORIDE 105 mmol/L (98-107); CO2 25 mmol/L (21-32); CREATININE 0.6 mg/dL (0.55-1.3); GLUCOSE,RANDOM 97 mg/dL (74-106); MAGNESIUM 2.2 mg/dL (1.8-2.4); PHOSPHOROUS 2.8 mg/dL (2.5-4.9); POTASSIUM 4.2 mmol/L (3.5-5.1); SGOT/AST 14 U/L (15-37); SGPT/ALT 18 U/L (13-61); SODIUM 138 mmol/L (136-145); TOT PROT 6.9 g/dl (6.4-8.2)
[2017-12-02] MEDS ORDERED: PIPERACILLIN/TAZOBACTAM 4.5 GM VIAL IVPB ONE (09:20)
[2017-12-02] MEDS ORDERED: DEXTROSE 5%-WATER 100 ML IVPB ONE (09:20)
--- NOTE | 2017-12-02 12:52 | PN ---
Progress Note, Physician History of Present Illness: 32 y.o. female with PMH of fibroids presents with c/o abdominal pain for over 5 days. Initially had constipation for 4 days and took laxatives. She states pain is constant along lower abdomen and rt side and describes it as 10/10 intensity at home. Pt had subjective fever/chills and began having nausea/vomiting last night. Denies dysuria, urinary frequency, shortness of breath/cough, chest pain , or any other specific complaints. Currently is able to ambulate and states pain is 5/10. - Current Medication List Current Medications: Active Medications Enoxaparin Sodium (Lovenox -) 40 mg SQ DAILY RUPA Sodium Chloride (Normal Saline -) 1,000 mls @ 150 mls/hr IV ASDIR RUPA Last Admin: 12/02/17 02:07 Dose: 150 mls/hr Piperacillin Sod/Tazobactam (Sod 3.375 gm/ Dextrose) 50 mls @ 100 mls/hr IVPB Q6H-IV RUPA; Protocol - Objective Vital Signs: Vital Signs Temperature 99.3 F 12/02/17 10:00 Pulse Rate 101 H 12/02/17 10:00 Respiratory Rate 20 12/02/17 10:00 Blood Pressure 124/74 12/02/17 10:00 O2 Sat by Pulse Oximetry (%) 98 12/01/17 17:50 Constitutional: Yes: No Distress, Calm Cardiovascular: Yes: Regular Rate and Rhythm Respiratory: Yes: Regular Gastrointestinal: Yes: Normal Bowel Sounds, Soft (+tenderness to palpation lower abdomen/RLQ , nondistended) Genitourinary: Yes: WNL Musculoskeletal: Yes: WNL Extremities: Yes: WNL Edema: No Integumentary: Yes: WNL Neurological: Yes: Alert, Oriented Psychiatric: Yes: Alert Labs: CBC, BMP 12/02/17 06:45 12/02/17 06:45 INR, PTT INR 1.23 (0.83-1.09) H 12/02/17 06:45 Laboratory Tests 12/01/17 12/01/17 12/01/17 18:05 18:06 21:38 WBC 13.1 H RBC 4.52 Hgb 12.4 Hct 38.6 MCV 85.4 MCH 27.5 MCHC 32.3 RDW 13.0 Plt Count 281 MPV 7.1 L Absolute Neuts (auto) 10.5 H Neutrophils % 79.8 Lymphocytes % 11.0 D Monocytes % 8.5 Eosinophils % 0.5 Basophils % 0.2 Nucleated RBC % 0 PT with INR INR PTT (Actin FS) Sodium 141 Potassium 4.0 Chloride 104 Carbon Dioxide 25 Anion Gap 12 BUN 8 Creatinine 0.6 Creat Clearance w eGFR > 60 Random Glucose 108 H Calcium 8.9 Phosphorus Magnesium Total Bilirubin 0.8 AST 12 L ALT 22 Alkaline Phosphatase 58 Total Protein 7.4 Albumin 3.6 Urine Color Yellow Urine Appearance Slcloudy Urine pH 5.0 D Ur Specific [place] 1.015 Urine Protein Negative Urine Glucose (UA) Negative Urine Ketones 1+ H Urine Blood Negative Urine Nitrite Negative Urine Bilirubin Negative Urine Urobilinogen Negative Ur Leukocyte Esterase Negative Urine HCG, Qual Negative Blood Type Antibody Screen 12/02/17 12/02/17 12/02/17 01:54 01:54 06:45 WBC 11.4 H RBC 4.23 Hgb 11.9 Hct 35.9 MCV 84.7 MCH 28.2 MCHC 33.3 RDW 13.6 Plt Count 251 MPV 7.0 L Absolute Neuts (auto) Neutrophils % Lymphocytes % Monocytes % Eosinophils % Basophils % Nucleated RBC % PT with INR 14.80 H INR 1.25 H PTT (Actin FS) Sodium Potassium Chloride Carbon Dioxide Anion Gap BUN Creatinine Creat Clearance w eGFR Random Glucose Calcium Phosphorus Magnesium Total Bilirubin AST ALT Alkaline Phosphatase Total Protein Albumin Urine Color Urine Appearance Urine pH Ur Specific [place] Urine Protein Urine Glucose (UA) Urine Ketones Urine Blood Urine Nitrite Urine Bilirubin Urine Urobilinogen Ur Leukocyte Esterase Urine HCG, Qual Blood Type O POSITIVE Antibody Screen Negative 12/02/17 12/02/17 06:45 06:45 WBC RBC Hgb Hct MCV MCH MCHC RDW Plt Count MPV Absolute Neuts (auto) Neutrophils % Lymphocytes % Monocytes % Eosinophils % Basophils % Nucleated RBC % PT with INR 14.60 H INR 1.23 H PTT (Actin FS) 33.0 Sodium 138 Potassium 4.2 Chloride 105 Carbon Dioxide 25 Anion Gap 8 BUN 6 L Creatinine 0.6 Creat Clearance w eGFR > 60 Random Glucose 97 Calcium 7.9 L Phosphorus 2.8 Magnesium 2.2 Total Bilirubin 0.8 AST 14 L ALT 18 Alkaline Phosphatase 54 Total Protein 6.9 Albumin 3.2 L Urine Color Urine Appearance Urine pH Ur Specific [place] Urine Protein Urine Glucose (UA) Urine Ketones Urine Blood Urine Nitrite Urine Bilirubin Urine Urobilinogen Ur Leukocyte Esterase Urine HCG, Qual Blood Type Antibody Screen Problem List - Problems (1) Abdominal pain Code(s): R10.9 - UNSPECIFIED ABDOMINAL PAIN Qualifiers: Abdominal location: lower abdomen, unspecified Qualified Code(s): R10.30 - Lower abdominal pain, unspecified (2) Perforation of sigmoid colon due to diverticulitis Code(s): K57.20 - DVTRCLI OF LG INT W PERFORATION AND ABSCESS W/O BLEEDING (3) Constipation Code(s): K59.00 - CONSTIPATION, UNSPECIFIED Qualifiers: Constipation type: unspecified constipation type Qualified Code(s): K59.00 - Constipation, unspecified Assessment/Plan 32 y.o. female presenting with c/o lower abdominal pain/RLQ worsening over 5 days, associated with fever/chills, constipation. Had mild leukocytosis and low grade fever upon presentation Sigmoid Perforation/Diverticulitis Leukocytosis - wbc trending down Fever -- Surgery consulted -- f/u CT Abd/Pelvis results -- continue Zosyn empirically for now -- monitor wbc, vitals closely will f/u
[2017-12-02] MEDS ORDERED: DEXTROSE 5%-WATER - 50 ML IVPB ONE ×2 (14:55→20:21)
[2017-12-02] MEDS ORDERED: PIPERACILLIN/TAZOBACTAM 3.375 GM VIAL IVPB ONE ×2 (14:55→20:21)
[2017-12-02] MEDS: PIPERACILLIN/TAZOB 3.375 GM 3.375 GM in DEXTROSE 5%-WATER - 50 ML IVPB SCH ×2 (14:58→21:57)
--- NOTE | 2017-12-02 16:03 | CONSULT ---
Consult Consult Specialty:: General Surgery Referred by:: Sandra Tirado Reason for Consultation:: sigmoid inflammation with microperf - History of Present Illness Chief Complaint: suprapubic pain with some to the right, nausea, constipation History of Present Illness: 32yo obese F with uterine fibroids, s/p , began experiencing constipation last Monday and came to ER. Initially, she was discharged without Rx, but returned the next day with some lower abdominal pain beginning as well. She was given Miralax and Pepcid, she thinks, but is not sure of the medicines, just that they were to help her go and help her stomach. She went back to work on Monday, but the pain got progressively worse through the week, and she still had not had a bowel movement, which she usually has daily. She came back to ER yesterday and was given something to clean her out, which did finally have some effect, but after she left, the pain got worse, and she returned to ER last night, when she had mildly elevated wbc, low-grade temp, and CT was done showing sigmoid inflammation with microperforation. She was started on IVF and antibiotics and admitted to medical service, NPO. She did have an episode of vomiting in ER, had had nausea at home on/off, and now has a bit of a headache from being hungry. Surgery was asked to assess. She is seen and examined in bed, with boyfriend and son at bedside. She is comfortable, and states she is feeling a little better than initially with a little less pain. Indicates pain is mostly suprapubic and just to the right. She is voiding very light urine, and now having loose BMs since the cleanout. - History Source History Provided By: Patient Limitations to Obtaining History: No Limitations - Past Medical History Reproductive: Yes: Fibroids. 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 Home Medications - Allergies Allergies/Adverse Reactions: Allergies Allergy/AdvReac Type Severity Reaction Status Date / Time No Known Allergies Allergy Verified 12/01/17 17:46 - Home Medications Home Medications: Ambulatory Orders Famotidine [Pepcid] 20 mg PO DAILY #14 tablet 11/26/17 Peg 3350/Na Sulf,Bicarb,Cl/KCl [Golytely Solution -] 4,000 ml PO ONCE #1 soln.recon 12/01/17 Home Medications (free text): no regular home meds - above were given at ED visits in last week Family Disease History - Family Disease History Family Disease History: CA: Grandparent (maternal GF colon CA >60yo, in 80s ) Other Family History: maternal cousin with colon CA in his 40s, diagnosed at stage 4, 2 wks later Review of Systems - Review of Systems Constitutional: denies: Chills, Fever Eyes: reports: Other (uses reading glasses). denies: Recent Change in Vision HENT: denies: Difficult Swallowing, Nasal Congestion, Throat Pain Neck: denies: Swollen Glands, Tenderness Cardiovascular: denies: Chest Pain, Palpitations Respiratory: denies: Cough, SOB Gastrointestinal: reports: Abdominal Pain (with hpi), Constipation (with hpi), Nausea (with hpi), Vomiting (once in ER). denies: Diarrhea, Rectal Bleeding, Vomiting Blood Genitourinary: denies: Burning, Dysuria Musculoskeletal: denies: Back Pain, Joint Pain, Muscle Pain Integumentary: denies: Change in Color, Rash Neurological: reports: Headache. denies: Dizziness, Unsteady Gait Psychiatric: denies: Anxiety, Depression Physical Exam Vital Signs: Vital Signs Temperature 98.6 F 12/02/17 13:41 Pulse Rate 104 H 12/02/17 13:41 Respiratory Rate 22 H 12/02/17 13:41 Blood Pressure 126/81 12/02/17 13:41 O2 Sat by Pulse Oximetry (%) 98 12/01/17 17:50 Constitutional: Yes: No Distress, Calm, Obese Eyes: Yes: Conjunctiva Clear, EOM Intact HENT: Yes: Atraumatic, Normocephalic Neck: Yes: Supple, Trachea Midline Cardiovascular: Yes: Tachycardia. No: Pulse Irregular Respiratory: Yes: Regular, CTA Bilaterally Gastrointestinal: Yes: Soft, Abdomen, Obese, Hypoactive Bowel Sounds (none in LLQ, normal to decreased in other quadrants), Tenderness (suprapubic and LLQ more than RLQ). No: Tenderness, Epigastrium, Tenderness, Rebound ...Rectal Exam: Yes: Deferred Renal/: No: CVA Tenderness - Left, CVA Tenderness - Right Musculoskeletal: No: Joint Stiffness, Joint Swelling Extremities: No: Cool, Cyanosis Edema: No Peripheral Pulses WNL: Yes Integumentary: Yes: Tattoos. No: Jaundice, Rash Neurological: Yes: Alert, Oriented. No: Unsteady Gait Psychiatric: Yes: Alert, Oriented Labs: CBC, BMP 12/02/17 06:45 12/02/17 06:45 CMP Sodium 138 mmol/L (136-145) 12/02/17 06:45 Potassium 4.2 mmol/L (3.5-5.1) 12/02/17 06:45 Chloride 105 mmol/L (98-107) 12/02/17 06:45 Carbon Dioxide 25 mmol/L (21-32) 12/02/17 06:45 Anion Gap 8 MMOL/L (8-16) 12/02/17 06:45 BUN 6 mg/dL (7-18) L 12/02/17 06:45 Creatinine 0.6 mg/dL (0.55-1.3) 12/02/17 06:45 Creat Clearance w eGFR > 60 (>60) 12/02/17 06:45 Random Glucose 97 mg/dL (74-106) 12/02/17 06:45 Calcium 7.9 mg/dL (8.5-10.1) L 12/02/17 06:45 Phosphorus 2.8 mg/dL (2.5-4.9) 12/02/17 06:45 Magnesium 2.2 mg/dL (1.8-2.4) 12/02/17 06:45 Total Bilirubin 0.8 mg/dL (0.2-1) 12/02/17 06:45 AST 14 U/L (15-37) L 12/02/17 06:45 ALT 18 U/L (13-61) 12/02/17 06:45 Alkaline Phosphatase 54 U/L (45-117) 12/02/17 06:45 Total Protein 6.9 g/dl (6.4-8.2) 12/02/17 06:45 Albumin 3.2 g/dl (3.4-5.0) L 12/02/17 06:45 INR, PTT INR 1.23 (0.83-1.09) H 12/02/17 06:45 Urine Test Results Urine Color Yellow 12/01/17 21:38 Urine Appearance Slcloudy 12/01/17 21:38 Urine pH 5.0 (5.0-8.0) D 12/01/17 21:38 Ur Specific [place] 1.015 (1.010-1.035) 12/01/17 21:38 Urine Protein Negative (NEGATIVE) 12/01/17 21:38 Urine Glucose (UA) Negative (NEGATIVE) 12/01/17 21:38 Urine Ketones 1+ (NEGATIVE) H 12/01/17 21:38 Urine Blood Negative (NEGATIVE) 12/01/17 21:38 Urine Nitrite Negative (NEGATIVE) 12/01/17 21:38 Urine Bilirubin Negative (<2.0 mg/dL) 12/01/17 21:38 Ur Leukocyte Esterase Negative (NEGATIVE) 12/01/17 21:38 Imaging - Results Cat Scan: Image Reviewed (images personally reviewed - sigmoid colon with inflammatory changes surrounding a segment, with few locules of air adjacent, no gross free air, little associated fluid; no obstruction) Problem List - Problems (1) Diverticulitis of large intestine with perforation without abscess or bleeding Assessment/Plan: admitted to medicine agree with NPO/IVF until pain and tenderness resolve change fluids to maintenance with D5 IV antibiotics as per ID trend labs pain meds prn - nonnarcotics first-line encourage OOB/ambulation GI/DVT prophylaxis will need GI followup on discharge for colonoscopy in 6-8 weeks after resolution Discussed with patient that surgery could be needed if she worsens despite conservative treatment or grossly perforates; exploratory laparotomy could also include possible bowel resection, possible ostomy, though colostomy could be reversible in future depending on pathology. She understands and would like to avoid urgent operation if possible; gave her my card for future reference as well. Code(s): K57.20 - DVTRCLI OF LG INT W PERFORATION AND ABSCESS W/O BLEEDING (2) Pelvic pain Code(s): R10.2 - PELVIC AND PERINEAL PAIN (3) Nausea and vomiting Code(s): R11.2 - NAUSEA WITH VOMITING, UNSPECIFIED Qualifiers: Vomiting type: unspecified Vomiting Intractability: non-intractable Qualified Code(s): R11.2 - Nausea with vomiting, unspecified (4) Obesity due to excess calories Code(s): E66.09 - OTHER OBESITY DUE TO EXCESS CALORIES Qualifiers: Obesity classification: adult class 3 (BMI >= 40) Serious obesity comorbidity presence: without serious comorbidity Body mass index: BMI 40.0- 44.9 Qualified Code(s): E66.01 - Morbid (severe) obesity due to excess calories; Z68.41 - Body mass index (BMI) 40.0-44.9, adult
[2017-12-02] MEDS ORDERED: ACETAMINOPHEN 1000 MG/100 ML VIAL (NON FORMULARY) IVPB PRN (16:35)
[2017-12-02] MEDS: DEXTROSE 5%-0.45% SALINE 1,000 ML IV SCH (17:09)
[2017-12-02] MEDS: ONDANSETRON 4 MG/2 ML VIAL IVPUSH PRN (18:10)
[2017-12-03] MEDS ORDERED: PIPERACILLIN/TAZOBACTAM 3.375 GM VIAL IVPB ONE ×4 (01:27→22:26)
[2017-12-03] MEDS ORDERED: DEXTROSE 5%-WATER - 50 ML IVPB ONE ×4 (01:27→22:26)
[2017-12-03] MEDS: PIPERACILLIN/TAZOB 3.375 GM 3.375 GM in DEXTROSE 5%-WATER - 50 ML IVPB SCH ×4 (02:09→23:50)
[2017-12-03] MEDS: DEXTROSE 5%-0.45% SALINE 1,000 ML IV SCH (02:10)
[2017-12-03] MEDS: ENOXAPARIN NA (PORCINE) 40 MG/0.4 ML DISP.SYRIN SQ SCH (09:11)
[2017-12-03] MEDS: ONDANSETRON 4 MG/2 ML VIAL IVPUSH PRN ×2 (09:19→20:23)
--- NOTE | 2017-12-03 10:23 | PN ---
Progress Note, Physician Chief Complaint: abdominal pain - Current Medication List Current Medications: Active Medications Acetaminophen (Ofirmev Injection -) 1,000 mg IVPB Q6H PRN PRN Reason: PAIN LEVEL 6-10 Last Admin: 12/03/17 07:28 Dose: 1,000 mg Enoxaparin Sodium (Lovenox -) 40 mg SQ DAILY RUPA Last Admin: 12/03/17 09:11 Dose: 40 mg Piperacillin Sod/Tazobactam (Sod 3.375 gm/ Dextrose) 50 mls @ 100 mls/hr IVPB Q6H-IV RUPA; Protocol Last Admin: 12/03/17 09:11 Dose: 100 mls/hr Dextrose/Sodium Chloride (D5-1/2ns -) 1,000 mls @ 125 mls/hr IV ASDIR RUPA Last Admin: 12/03/17 02:10 Dose: 125 mls/hr Ondansetron HCl (Zofran Injection) 4 mg IVPUSH Q6H PRN PRN Reason: NAUSEA AND/OR VOMITING Last Admin: 12/03/17 09:19 Dose: 4 mg - Objective Vital Signs: Vital Signs Temperature 98.6 F 12/03/17 06:51 Pulse Rate 88 12/03/17 06:51 Respiratory Rate 20 12/03/17 06:51 Blood Pressure 134/70 12/03/17 06:51 O2 Sat by Pulse Oximetry (%) 98 12/01/17 17:50 Constitutional: Yes: Well Nourished, No Distress, Calm Eyes: Yes: Conjunctiva Clear, EOM Intact HENT: Yes: WNL, Atraumatic, Normocephalic Neck: Yes: WNL, Supple, Trachea Midline Cardiovascular: Yes: WNL, Regular Rate and Rhythm, S1, S2 Respiratory: Yes: WNL, Regular, CTA Bilaterally Gastrointestinal: Yes: WNL, Normal Bowel Sounds, Soft, Abdomen, Obese, Hyperactive Bowel Sounds ...Rectal Exam: Yes: Deferred Musculoskeletal: Yes: WNL Extremities: Yes: WNL Labs: CBC, BMP 12/02/17 06:45 12/02/17 06:45 INR, PTT INR 1.23 (0.83-1.09) H 12/02/17 06:45 Problem List - Problems (1) Diverticulitis of large intestine with perforation without abscess or bleeding Assessment/Plan: -CT scan shows focal sigmoid inflammation with microperforation, suggestive of inflamed diverticulum vs collitis. -c/w pippercillin/tazobactam 4.5 grams IV Q8H -IV normal saline at 150mL/hour -NPO Code(s): K57.20 - DVTRCLI OF LG INT W PERFORATION AND ABSCESS W/O BLEEDING (2) Obesity due to excess calories Assessment/Plan: diet and exercise keep patient NPO until cleared by surgery Code(s): E66.09 - OTHER OBESITY DUE TO EXCESS CALORIES Qualifiers: Obesity classification: adult class 3 (BMI >= 40) Serious obesity comorbidity presence: without serious comorbidity Body mass index: BMI 40.0- 44.9 Qualified Code(s): E66.01 - Morbid (severe) obesity due to excess calories; Z68.41 - Body mass index (BMI) 40.0-44.9, adult
[2017-12-03 10:31] LABS: BASO % 0.2 % (0-2.0); EOS % 1.4 % (0-4.5); HEMATOCRIT 35.5 % (32.4-45.2); HEMOGLOBIN 11.8 GM/dL (10.7-15.3); LYMPH % 16.5 % (8-40); MCH 28.1 pg (25.7-33.7); MCHC 33.3 g/dl (32.0-36.0); MEAN CELL VOLUME 84.5 fl (80-96); MONO % 10.1 % (3.8-10.2); NEUT % 71.8 % (42.8-82.8); PLATELET COUNT 248 K/MM3 (134-434); RDW 13.2 % (11.6-15.6); WHITE BLOOD COUNT 7.7 K/mm3 (4.0-10.0)
[2017-12-03 11:05] LABS: ALBUMIN 3.1 g/dl (3.4-5.0); ALK PHOS 50 U/L (45-117); ANION GAP 10 MMOL/L (8-16); BILIRUBIN,TOTAL 1.2 mg/dL (0.2-1); BLOOD UREA NITROGEN 5 mg/dL (7-18); CALCIUM 8.1 mg/dL (8.5-10.1); CHLORIDE 105 mmol/L (98-107); CO2 25 mmol/L (21-32); CREATININE 0.5 mg/dL (0.55-1.3); GLUCOSE,RANDOM 117 mg/dL (74-106); MAGNESIUM 2.1 mg/dL (1.8-2.4); PHOSPHOROUS 2.4 mg/dL (2.5-4.9); POTASSIUM 3.5 mmol/L (3.5-5.1); SGOT/AST 9 U/L (15-37); SGPT/ALT 18 U/L (13-61); SODIUM 140 mmol/L (136-145); TOT PROT 6.6 g/dl (6.4-8.2)
--- NOTE | 2017-12-03 14:07 | PN ---
Progress Note, Physician History of Present Illness: Pt with sigmoid diverticulitis with microperforation, NPO on IVF, had some IV Tylenol and Zofran but is now feeling better. Pain is much less, still having loose stools. Ambulating, up in chair, just laid down again. Not as hungry or thirsty, voiding clear urine. - Current Medication List Current Medications: Active Medications Acetaminophen (Ofirmev Injection -) 1,000 mg IVPB Q6H PRN PRN Reason: PAIN LEVEL 6-10 Last Admin: 12/03/17 07:28 Dose: 1,000 mg Enoxaparin Sodium (Lovenox -) 40 mg SQ DAILY RUPA Last Admin: 12/03/17 09:11 Dose: 40 mg Piperacillin Sod/Tazobactam (Sod 3.375 gm/ Dextrose) 50 mls @ 100 mls/hr IVPB Q6H-IV RUPA; Protocol Last Admin: 12/03/17 09:11 Dose: 100 mls/hr Dextrose/Sodium Chloride (D5-1/2ns -) 1,000 mls @ 125 mls/hr IV ASDIR RUPA Last Admin: 12/03/17 02:10 Dose: 125 mls/hr Ondansetron HCl (Zofran Injection) 4 mg IVPUSH Q6H PRN PRN Reason: NAUSEA AND/OR VOMITING Last Admin: 12/03/17 09:19 Dose: 4 mg - Objective Vital Signs: Vital Signs Temperature 98.6 F 12/03/17 06:51 Pulse Rate 88 12/03/17 06:51 Respiratory Rate 20 12/03/17 09:00 Blood Pressure 134/70 12/03/17 06:51 O2 Sat by Pulse Oximetry (%) 98 12/01/17 17:50 Constitutional: Yes: No Distress, Calm, Obese Eyes: Yes: Conjunctiva Clear, EOM Intact HENT: Yes: Atraumatic, Normocephalic Gastrointestinal: Yes: Soft, Abdomen, Obese, Tenderness (mild suprapubic and just left of lower midline, but no longer in bilateral lower quadrants or elsewhere). No: Tenderness, Epigastrium, Tenderness, Rebound Extremities: No: Cool, Cyanosis Integumentary: Yes: Tattoos. No: Jaundice, Rash Neurological: Yes: Alert, Oriented Labs: CBC, BMP 12/03/17 10:24 12/03/17 10:24 CMP Sodium 140 mmol/L (136-145) 12/03/17 10:24 Potassium 3.5 mmol/L (3.5-5.1) 12/03/17 10:24 Chloride 105 mmol/L (98-107) 12/03/17 10:24 Carbon Dioxide 25 mmol/L (21-32) 12/03/17 10:24 Anion Gap 10 MMOL/L (8-16) 12/03/17 10:24 BUN 5 mg/dL (7-18) L 12/03/17 10:24 Creatinine 0.5 mg/dL (0.55-1.3) L 12/03/17 10:24 Creat Clearance w eGFR > 60 (>60) 12/03/17 10:24 Random Glucose 117 mg/dL (74-106) H 12/03/17 10:24 Calcium 8.1 mg/dL (8.5-10.1) L 12/03/17 10:24 Phosphorus 2.4 mg/dL (2.5-4.9) L 12/03/17 10:24 Magnesium 2.1 mg/dL (1.8-2.4) 12/03/17 10:24 Total Bilirubin 1.2 mg/dL (0.2-1) H 12/03/17 10:24 AST 9 U/L (15-37) L 12/03/17 10:24 ALT 18 U/L (13-61) 12/03/17 10:24 Alkaline Phosphatase 50 U/L (45-117) 12/03/17 10:24 Total Protein 6.6 g/dl (6.4-8.2) 12/03/17 10:24 Albumin 3.1 g/dl (3.4-5.0) L 12/03/17 10:24 wbc down from 11 to normal K a little low - will add to fluids Problem List - Problems (1) Diverticulitis of large intestine with perforation without abscess or bleeding Assessment/Plan: doing well, feeling better pain, tenderness improving to minimal will try clear liquids for dinner and breakfast, and if tolerating without increased pain, advance later tomorrow as tolerated add K+ to fluids, will decrease rate a little IV antibiotics as per ID plan for ultimate completion of antibiotic course PO on discharge, per ID trend labs pain meds prn - nonnarcotics first-line encourage OOB/ambulation GI/DVT prophylaxis Discussed with Dr. Gordon will need GI followup on discharge for colonoscopy in 6-8 weeks after resolution Code(s): K57.20 - DVTRCLI OF LG INT W PERFORATION AND ABSCESS W/O BLEEDING (2) Pelvic pain Assessment/Plan: improved Code(s): R10.2 - PELVIC AND PERINEAL PAIN (3) Nausea and vomiting Assessment/Plan: resolved Code(s): R11.2 - NAUSEA WITH VOMITING, UNSPECIFIED Qualifiers: Vomiting type: unspecified Vomiting Intractability: non-intractable Qualified Code(s): R11.2 - Nausea with vomiting, unspecified (4) Obesity due to excess calories Code(s): E66.09 - OTHER OBESITY DUE TO EXCESS CALORIES Qualifiers: Obesity classification: adult class 3 (BMI >= 40) Serious obesity comorbidity presence: without serious comorbidity Body mass index: BMI 40.0- 44.9 Qualified Code(s): E66.01 - Morbid (severe) obesity due to excess calories; Z68.41 - Body mass index (BMI) 40.0-44.9, adult
[2017-12-03] MEDS: D5-1/2NS+20 MEQ KCL - 20 MEQ/1,000 ML INFUS.BAG IV SCH (17:28)
--- NOTE | 2017-12-03 19:38 | PN ---
Progress Note, Physician History of Present Illness: Pt feeling a bit better. Afebrile, pain controlled. - Current Medication List Current Medications: Active Medications Acetaminophen (Ofirmev Injection -) 1,000 mg IVPB Q6H PRN PRN Reason: PAIN LEVEL 6-10 Last Admin: 12/03/17 07:28 Dose: 1,000 mg Enoxaparin Sodium (Lovenox -) 40 mg SQ DAILY RUPA Last Admin: 12/03/17 09:11 Dose: 40 mg Piperacillin Sod/Tazobactam (Sod 3.375 gm/ Dextrose) 50 mls @ 100 mls/hr IVPB Q6H-IV RUPA; Protocol Last Admin: 12/03/17 14:34 Dose: 100 mls/hr Potassium Chloride/Dextrose/Sod Cl (D5-1/2ns+20 Meq Kcl -) 20 meq in 1,000 mls @ 100 mls/hr IV ASDIR RUPA Last Admin: 12/03/17 17:28 Dose: 100 mls/hr Ondansetron HCl (Zofran Injection) 4 mg IVPUSH Q6H PRN PRN Reason: NAUSEA AND/OR VOMITING Last Admin: 12/03/17 09:19 Dose: 4 mg - Objective Vital Signs: Vital Signs Temperature 98.9 F 12/03/17 17:03 Pulse Rate 102 H 12/03/17 17:03 Respiratory Rate 20 12/03/17 17:03 Blood Pressure 126/92 12/03/17 17:03 O2 Sat by Pulse Oximetry (%) 98 12/01/17 17:50 Constitutional: Yes: No Distress Cardiovascular: Yes: Regular Rate and Rhythm Respiratory: Yes: Regular Gastrointestinal: Yes: Normal Bowel Sounds, Soft, Tenderness Integumentary: Yes: WNL Neurological: Yes: Alert Labs: CBC, BMP 12/03/17 10:24 12/03/17 10:24 INR, PTT INR 1.23 (0.83-1.09) H 12/02/17 06:45 Problem List - Problems (1) Abdominal pain Code(s): R10.9 - UNSPECIFIED ABDOMINAL PAIN Qualifiers: Abdominal location: lower abdomen, unspecified Qualified Code(s): R10.30 - Lower abdominal pain, unspecified (2) Perforation of sigmoid colon due to diverticulitis Code(s): K57.20 - DVTRCLI OF LG INT W PERFORATION AND ABSCESS W/O BLEEDING (3) Constipation Code(s): K59.00 - CONSTIPATION, UNSPECIFIED Qualifiers: Constipation type: unspecified constipation type Qualified Code(s): K59.00 - Constipation, unspecified Assessment/Plan 32 y.o. female presenting with c/o lower abdominal pain/RLQ worsening over 5 days, associated with fever/chills, constipation. Had mild leukocytosis and low grade fever upon presentation Sigmoid Perforation/Diverticulitis Leukocytosis - wbc now normal Fever - resolved -- Surgery following, conservative management chosen at this time -- continue Zosyn empirically for now -- monitor tolerability as advance pt's diet
[2017-12-04] MEDS ORDERED: DEXTROSE 5%-WATER - 50 ML IVPB ONE ×4 (02:38→19:56)
[2017-12-04] MEDS ORDERED: PIPERACILLIN/TAZOBACTAM 3.375 GM VIAL IVPB ONE ×4 (02:38→19:56)
[2017-12-04] MEDS: PIPERACILLIN/TAZOB 3.375 GM 3.375 GM in DEXTROSE 5%-WATER - 50 ML IVPB SCH ×4 (02:49→20:30)
[2017-12-04 07:06] LABS: BASO % 0.4 % (0-2.0); EOS % 3.6 % (0-4.5); HEMATOCRIT 38.5 % (32.4-45.2); HEMOGLOBIN 12.6 GM/dL (10.7-15.3); LYMPH % 29.9 % (8-40); MCH 27.8 pg (25.7-33.7); MCHC 32.7 g/dl (32.0-36.0); MONO % 10.6 % (3.8-10.2); NEUT % 55.5 % (42.8-82.8); PLATELET COUNT 298 K/MM3 (134-434); RBC 4.54 M/mm3 (3.60-5.2); RDW 13.1 % (11.6-15.6); WHITE BLOOD COUNT 6.5 K/mm3 (4.0-10.0)
[2017-12-04 07:51] LABS: ANION GAP 4 MMOL/L (8-16); BLOOD UREA NITROGEN 3 mg/dL (7-18); CALCIUM 8.8 mg/dL (8.5-10.1); CHLORIDE 107 mmol/L (98-107); CO2 26 mmol/L (21-32); CREATININE 0.6 mg/dL (0.55-1.3); GLUCOSE,RANDOM 92 mg/dL (74-106); MAGNESIUM 2.3 mg/dL (1.8-2.4); PHOSPHOROUS 2.9 mg/dL (2.5-4.9); SODIUM 137 mmol/L (136-145)
[2017-12-04] MEDS: ENOXAPARIN NA (PORCINE) 40 MG/0.4 ML DISP.SYRIN SQ SCH (09:47)
--- NOTE | 2017-12-04 11:03 | PN ---
Progress Note, Physician History of Present Illness: patient feeling better still feels pressure no other issues - Current Medication List Current Medications: Active Medications Acetaminophen (Ofirmev Injection -) 1,000 mg IVPB Q6H PRN PRN Reason: PAIN LEVEL 6-10 Last Admin: 12/03/17 07:28 Dose: 1,000 mg Enoxaparin Sodium (Lovenox -) 40 mg SQ DAILY RUPA Last Admin: 12/04/17 09:47 Dose: 40 mg Piperacillin Sod/Tazobactam (Sod 3.375 gm/ Dextrose) 50 mls @ 100 mls/hr IVPB Q6H-IV RUPA; Protocol Last Admin: 12/04/17 09:48 Dose: 100 mls/hr Potassium Chloride/Dextrose/Sod Cl (D5-1/2ns+20 Meq Kcl -) 20 meq in 1,000 mls @ 100 mls/hr IV ASDIR RUPA Last Admin: 12/03/17 17:28 Dose: 100 mls/hr Ondansetron HCl (Zofran Injection) 4 mg IVPUSH Q6H PRN PRN Reason: NAUSEA AND/OR VOMITING Last Admin: 12/03/17 20:23 Dose: 4 mg - Objective Vital Signs: Vital Signs Temperature 98.4 F 12/04/17 10:00 Pulse Rate 99 H 12/04/17 10:00 Respiratory Rate 20 12/04/17 10:00 Blood Pressure 142/86 12/04/17 10:00 O2 Sat by Pulse Oximetry (%) 98 12/01/17 17:50 Constitutional: Yes: No Distress, Calm Cardiovascular: Yes: Regular Rate and Rhythm Respiratory: Yes: Regular, CTA Bilaterally Gastrointestinal: Yes: Soft, Hypoactive Bowel Sounds Musculoskeletal: Yes: WNL Extremities: Yes: WNL Neurological: Yes: Alert, Oriented Labs: CBC, BMP 12/04/17 06:00 12/04/17 06:00 INR, PTT INR 1.23 (0.83-1.09) H 12/02/17 06:45 Assessment/Plan Problem List - Problems (1) Abdominal pain Code(s): R10.9 - UNSPECIFIED ABDOMINAL PAIN Qualifiers: Abdominal location: lower abdomen, unspecified Qualified Code(s): R10.30 - Lower abdominal pain, unspecified (2) Perforation of sigmoid colon due to diverticulitis Code(s): K57.20 - DVTRCLI OF LG INT W PERFORATION AND ABSCESS W/O BLEEDING (3) Constipation Code(s): K59.00 - CONSTIPATION, UNSPECIFIED Qualifiers: Constipation type: unspecified constipation type Qualified Code(s): K59.00 - Constipation, unspecified Assessment/Plan 32 y.o. female presenting with c/o lower abdominal pain/RLQ worsening over 5 days, associated with fever/chills, constipation. Had mild leukocytosis and low grade fever upon presentation Sigmoid Perforation/Diverticulitis Leukocytosis - wbc now normal Fever - resolved plan continue liquids continue abx for now once patient starts orally and tolerates will switch to oral abx rest as per the teams
--- NOTE | 2017-12-04 13:26 | PN ---
Teaching Attending Note Name of Resident: Norma Schuler ATTENDING PHYSICIAN STATEMENT I saw and evaluated the patient. I reviewed the resident's note and discussed the case with the resident. I agree with the resident's findings and plan as documented. SUBJECTIVE: Pain improved; minor cramping in b/l LQ. Tolerating clears. No events overnight, no complaints OBJECTIVE: VSS, all labs reviewed Gen: NAD, resting in chair, AAOx3 Abd: Pain to deep palpation lower quads, +BS x4 quads, no hsm CV: RRR s1/2 no mgr Ext: +pulses, no edema Lungs: CTAB, sym expansion Neck: Trachea midline, no JVD ASSESSMENT AND PLAN: 1) Sigmoid Perforation: Pt. opted to manage nonoperatively. Continue with abx per ID and switch over when tolerating PO; monitor CBC and for fevers. Advance diet as per sgy. Appreciate specialst input. Continue with analgesia. Full Code
--- NOTE | 2017-12-04 14:11 | PN ---
Progress Note, Physician History of Present Illness: Pt with sigmoid diverticulitis with microperforation, improving daily. Pain has essentially resolved, still having loose stools. Ambulating, up in chair, voiding. Tolerated clears breakfast and lunch, though had one episode emesis after broth last night. Not using pain meds. Feeling better. On IV antibiotics per ID. - Current Medication List Current Medications: Active Medications Acetaminophen (Ofirmev Injection -) 1,000 mg IVPB Q6H PRN PRN Reason: PAIN LEVEL 6-10 Last Admin: 12/03/17 07:28 Dose: 1,000 mg Enoxaparin Sodium (Lovenox -) 40 mg SQ DAILY RUPA Last Admin: 12/04/17 09:47 Dose: 40 mg Piperacillin Sod/Tazobactam (Sod 3.375 gm/ Dextrose) 50 mls @ 100 mls/hr IVPB Q6H-IV RUPA; Protocol Last Admin: 12/04/17 09:48 Dose: 100 mls/hr Potassium Chloride/Dextrose/Sod Cl (D5-1/2ns+20 Meq Kcl -) 20 meq in 1,000 mls @ 100 mls/hr IV ASDIR RUPA Last Admin: 12/03/17 17:28 Dose: 100 mls/hr Ondansetron HCl (Zofran Injection) 4 mg IVPUSH Q6H PRN PRN Reason: NAUSEA AND/OR VOMITING Last Admin: 12/03/17 20:23 Dose: 4 mg - Objective Vital Signs: Vital Signs Temperature 98.4 F 12/04/17 10:00 Pulse Rate 99 H 12/04/17 10:00 Respiratory Rate 20 12/04/17 10:00 Blood Pressure 142/86 12/04/17 10:00 O2 Sat by Pulse Oximetry (%) 100 12/04/17 09:00 Constitutional: Yes: No Distress, Calm, Obese Eyes: Yes: Conjunctiva Clear, EOM Intact HENT: Yes: Atraumatic, Normocephalic Cardiovascular: Yes: Regular Rate and Rhythm Respiratory: Yes: Regular, CTA Bilaterally Gastrointestinal: Yes: Normal Bowel Sounds (to slightly decreased), Soft, Abdomen, Obese. No: Tenderness, Tenderness, Epigastrium ...Rectal Exam: Yes: Deferred Extremities: No: Cool, Cyanosis Integumentary: Yes: Tattoos. No: Jaundice, Rash Neurological: Yes: Alert, Oriented Labs: CBC, BMP 12/04/17 06:00 12/04/17 06:00 Problem List - Problems (1) Diverticulitis of large intestine with perforation without abscess or bleeding Assessment/Plan: doing well, feeling better pain, tenderness resolved would advance diet as tolerated IV antibiotics as per ID change to PO for ultimate completion of antibiotic course on discharge, per ID trend labs pain meds prn - nonnarcotics only at this point encourage OOB/ambulation GI/DVT prophylaxis will need PMD and GI followup on discharge for colonoscopy in 6-8 weeks after resolution gave her my card to follow up electively in surgical clinic after colonoscopy if she wants to discuss surgical options Code(s): K57.20 - DVTRCLI OF LG INT W PERFORATION AND ABSCESS W/O BLEEDING (2) Nausea and vomiting Assessment/Plan: resolved Code(s): R11.2 - NAUSEA WITH VOMITING, UNSPECIFIED Qualifiers: Vomiting type: unspecified Vomiting Intractability: non-intractable Qualified Code(s): R11.2 - Nausea with vomiting, unspecified (3) Obesity due to excess calories Assessment/Plan: pt plans to lose weight with diet and exercise plan encouraged in this regard and advised to reach goal if possible prior to elective surgery will see if molder sweep can see pt to go over low-fiber diet for next ~2 wks while healing, then transition back to high fiber (25-30g/day) with adequate fluid intake Code(s): E66.09 - OTHER OBESITY DUE TO EXCESS CALORIES Qualifiers: Obesity classification: adult class 3 (BMI >= 40) Serious obesity comorbidity presence: without serious comorbidity Body mass index: BMI 40.0- 44.9 Qualified Code(s): E66.01 - Morbid (severe) obesity due to excess calories; Z68.41 - Body mass index (BMI) 40.0-44.9, adult
[2017-12-04] MEDS ORDERED: ACETAMINOPHEN 1000 MG/100 ML VIAL (NON FORMULARY) IVPB ONE (15:45)
[2017-12-04] MEDS: D5-1/2NS+20 MEQ KCL - 20 MEQ/1,000 ML INFUS.BAG IV SCH (16:03)
[2017-12-04 16:53] VITALS: TEMP 98.4
--- NOTE | 2017-12-04 17:09 | PN ---
Physical Exam: SUBJECTIVE: Patient seen and examined at bedside this morning. Tolerating clear liquids without abdominal pain, nausea, or vomiting. Last bowel movement was earlier this morning, semisolid, brown without hematochezia or melena. Denies headache, fevers, chills, shortness of breath, chest pain, palpitations. OBJECTIVE: Vital Signs Period Temp Pulse Resp BP Sys/Collins Pulse Ox Last 24 Hr 98.0 F-98.9 F 85-102 20-20 125-142/79-92 100 GENERAL: Patient is awake, alert, and fully oriented, in no acute distress. Appears stated age. HEAD: Normal with no signs of trauma. EYES: Pupils equal, round and reactive to light, extraocular movements intact b/ l. Sclera anicteric, conjunctiva non-injected b/l. EARS, NOSE, THROAT: Oropharynx clear without exudates erythema, or lesion. Moist mucous membranes. NECK: Normal range of motion, supple without lymphadenopathy, JVD, or masses. LUNGS: Breath sounds equal, clear to auscultation bilaterally. No wheezes, no rhonchi. No accessory muscle use. HEART: Regular rate and rhythm, normal S1 and S2 without murmur, rub or gallop. ABDOMEN: Obese. Soft, nondistended. Nontender to palpation. No guarding, no rebound tendernes. Normoactive bowel sounds X4 quadrants. Hepatomegaly appreciated 4cm below costal margin. MUSCULOSKELETAL: Normal range of motion at all joints. Strength 5/5 b/l upper and lower extremities. UPPER EXTREMITIES: 2+ radial pulses b/l, warm, well-perfused. LOWER EXTREMITIES: 2+ dorsalis pedis pulses b/l, warm, well-perfused. No calf tenderness b/l. No lower extremity edema. NEUROLOGICAL: Cranial nerves II-XII intact. Normal speech. Normal gait. PSYCHIATRIC: Cooperative. Good eye contact. Appropriate mood and affect. SKIN: Warm, dry, normal turgor, no rashes or lesions noted, normal capillary refill. Laboratory Results - last 24 hr 12/04/17 12/04/17 06:00 06:00 WBC 6.5 RBC 4.54 Hgb 12.6 Hct 38.5 MCV 85.0 MCH 27.8 MCHC 32.7 RDW 13.1 Plt Count 298 D MPV 7.0 L Absolute Neuts (auto) 3.6 Neutrophils % 55.5 D Lymphocytes % 29.9 D Monocytes % 10.6 H Eosinophils % 3.6 D Basophils % 0.4 Nucleated RBC % 0 Sodium 137 Potassium 4.0 Chloride 107 Carbon Dioxide 26 Anion Gap 4 L BUN 3 L Creatinine 0.6 Creat Clearance w eGFR > 60 Random Glucose 92 Calcium 8.8 Phosphorus 2.9 Magnesium 2.3 Active Medications Generic Name Dose Route Start Last Admin Trade Name Freq PRN Reason Stop Dose Admin Acetaminophen 1,000 mg 12/02/17 16:35 12/03/17 07:28 Ofirmev Injection - IVPB 1,000 mg Q6H PRN Administration PAIN LEVEL 6-10 Enoxaparin Sodium 40 mg 12/02/17 10:00 12/04/17 09:47 Lovenox - SQ 40 mg DAILY RUPA Administration Piperacillin Sod/Tazobactam 50 mls @ 100 mls/hr 12/02/17 15:00 12/04/17 14:19 Sod 3.375 gm/ Dextrose IVPB 100 mls/hr Q6H-IV RUPA Administration Protocol Potassium Chloride/Dextrose/Sod Cl 20 meq in 1,000 mls @ 100 mls/hr 12/03/17 14:15 12/04/17 16:03 D5-1/2ns+20 Meq Kcl - IV 100 mls/hr ASDIR RUPA Administration Ondansetron HCl 4 mg 12/02/17 16:36 12/03/17 20:23 Zofran Injection IVPUSH 4 mg Q6H PRN Administration NAUSEA AND/OR VOMITING ASSESSMENT/PLAN: Patient is a 32 year old female with history of fibroids presenting with one week of abdominal pain associated with constipation. Abdominal Pain -CT abdomen/ pelvis shows focal sigmoid inflammation with microperforation, suggestive of inflamed diverticulum vs collitis. -Surgery consult (Dr. De Jesus) appreciated. Patient does not want surgery at this time. Will continue conservative management. -ID consult (Dr. Carmona) appreciated. Will continue Zosyn 3.375grams IV Q6H (day 3) -Pain control with Ofirmev 1000mg IV Q6H PRN -Zofran 4mg IV Q6H PRN for nausea -Advance diet as tolerated. FEN -D5 1/2 NS + 20meq KCl at 100mL/ hour -Follow CMP -Full liquid diet. Body And Fender Mechanic consult placed for low fiber diet education. Prophylaxis -Lovenox 40mg subq daily Disposition -Continue care in medical-surgical floor Visit type - Emergency Visit Emergency Visit: Yes ED Registration Date: 12/02/17 Care time: The patient presented to the Emergency Department on the above date and was hospitalized for further evaluation of their emergent condition. - New Patient This patient is new to me today: Yes Date on this admission: 12/04/17 - Critical Care Critical Care patient: No - Discharge Referral Referred to [facility] Med P.C.: No
[2017-12-05] MEDS ORDERED: PIPERACILLIN/TAZOBACTAM 3.375 GM VIAL IVPB ONE ×2 (00:45→08:43)
[2017-12-05] MEDS ORDERED: DEXTROSE 5%-WATER - 50 ML IVPB ONE ×2 (00:46→08:43)
[2017-12-05] MEDS: PIPERACILLIN/TAZOB 3.375 GM 3.375 GM in DEXTROSE 5%-WATER - 50 ML IVPB SCH ×2 (03:02→08:49)
[2017-12-05 07:08] LABS: HEMATOCRIT 35.5 % (32.4-45.2); HEMOGLOBIN 11.9 GM/dL (10.7-15.3); MCH 28.2 pg (25.7-33.7); MCHC 33.5 g/dl (32.0-36.0); MEAN CELL VOLUME 84.1 fl (80-96); MEAN PLT VOLUME 6.9 fl (7.5-11.1); PLATELET COUNT 293 K/MM3 (134-434); RBC 4.21 M/mm3 (3.60-5.2); RDW 13.2 % (11.6-15.6); WHITE BLOOD COUNT 5.2 K/mm3 (4.0-10.0)
[2017-12-05 07:49] LABS: ALBUMIN 2.9 g/dl (3.4-5.0); ALK PHOS 49 U/L (45-117); ANION GAP 5 MMOL/L (8-16); BILIRUBIN,TOTAL 0.5 mg/dL (0.2-1); BLOOD UREA NITROGEN 4 mg/dL (7-18); CALCIUM 8.5 mg/dL (8.5-10.1); CHLORIDE 105 mmol/L (98-107); CO2 28 mmol/L (21-32); CREATININE 0.7 mg/dL (0.55-1.3); GLUCOSE,RANDOM 112 mg/dL (74-106); POTASSIUM 4.2 mmol/L (3.5-5.1); SGOT/AST 16 U/L (15-37); SGPT/ALT 23 U/L (13-61); SODIUM 138 mmol/L (136-145); TOT PROT 6.6 g/dl (6.4-8.2)
--- NOTE | 2017-12-05 09:50 | PN ---
Progress Note, Physician History of Present Illness: patient stable no new issues feels much better tolerated diet - Current Medication List Current Medications: Active Medications Acetaminophen (Ofirmev Injection -) 1,000 mg IVPB Q6H PRN PRN Reason: PAIN LEVEL 6-10 Last Admin: 12/03/17 07:28 Dose: 1,000 mg Enoxaparin Sodium (Lovenox -) 40 mg SQ DAILY RUPA Last Admin: 12/04/17 09:47 Dose: 40 mg Piperacillin Sod/Tazobactam (Sod 3.375 gm/ Dextrose) 50 mls @ 100 mls/hr IVPB Q6H-IV RUPA; Protocol Last Admin: 12/05/17 08:49 Dose: 100 mls/hr Potassium Chloride/Dextrose/Sod Cl (D5-1/2ns+20 Meq Kcl -) 20 meq in 1,000 mls @ 100 mls/hr IV ASDIR RUPA Last Admin: 12/04/17 16:03 Dose: 100 mls/hr Ondansetron HCl (Zofran Injection) 4 mg IVPUSH Q6H PRN PRN Reason: NAUSEA AND/OR VOMITING Last Admin: 12/03/17 20:23 Dose: 4 mg - Objective Vital Signs: Vital Signs Temperature 98.4 F 12/05/17 06:28 Pulse Rate 60 12/05/17 06:28 Respiratory Rate 20 12/05/17 06:28 Blood Pressure 125/66 12/05/17 06:28 O2 Sat by Pulse Oximetry (%) 100 12/04/17 21:00 Constitutional: Yes: No Distress, Calm Cardiovascular: Yes: Regular Rate and Rhythm Respiratory: Yes: Regular, CTA Bilaterally Gastrointestinal: Yes: Normal Bowel Sounds, Soft Musculoskeletal: Yes: WNL Extremities: Yes: WNL Neurological: Yes: Alert, Oriented Psychiatric: Yes: Alert, Oriented Labs: CBC, BMP 12/05/17 06:30 12/05/17 06:30 INR, PTT INR 1.23 (0.83-1.09) H 12/02/17 06:45 Assessment/Plan Problem List - Problems (1) Abdominal pain Code(s): R10.9 - UNSPECIFIED ABDOMINAL PAIN Qualifiers: Abdominal location: lower abdomen, unspecified Qualified Code(s): R10.30 - Lower abdominal pain, unspecified (2) Perforation of sigmoid colon due to diverticulitis Code(s): K57.20 - DVTRCLI OF LG INT W PERFORATION AND ABSCESS W/O BLEEDING (3) Constipation Code(s): K59.00 - CONSTIPATION, UNSPECIFIED Qualifiers: Constipation type: unspecified constipation type Qualified Code(s): K59.00 - Constipation, unspecified Assessment/Plan 32 y.o. female presenting with c/o lower abdominal pain/RLQ worsening over 5 days, associated with fever/chills, constipation. Had mild leukocytosis and low grade fever upon presentation Sigmoid Perforation/Diverticulitis Leukocytosis - wbc now normal Fever - resolved plan tolerating diet can switch to oral abx augmentin 875 mg po bid for another 7 days rest as per the team
[2017-12-05] MEDS: ENOXAPARIN NA (PORCINE) 40 MG/0.4 ML DISP.SYRIN SQ SCH (09:58)
[2017-12-05 10:26] VITALS: BP 135/76; PULSE 75
[2017-12-05 12:54] VITALS: BMI 43.2
--- NOTE | 2017-12-05 14:50 | DS ---
Physical Exam: SUBJECTIVE: Patient seen and examined at bedside this morning. Tolerating regular diet without abdominal pain, nausea, or vomiting. Last bowel movement yesterday was semisolid, brown without hematochezia or melena. Denies headache, fevers, chills, shortness of breath, chest pain, palpitations. OBJECTIVE: Vital Signs Period Temp Pulse Resp BP Sys/Collins Pulse Ox Last 24 Hr 98.3 F-98.4 F 60-87 18-20 125-137/66-86 100 PHYSICAL EXAM GENERAL: Patient is awake, alert, and fully oriented, in no acute distress. Appears stated age. HEAD: Normal with no signs of trauma. EYES: Pupils equal, round and reactive to light, extraocular movements intact b/ l. Sclera anicteric, conjunctiva non-injected b/l. EARS, NOSE, THROAT: Oropharynx clear without exudates erythema, or lesion. Moist mucous membranes. NECK: Normal range of motion, supple without lymphadenopathy, JVD, or masses. LUNGS: Breath sounds equal, clear to auscultation bilaterally. No wheezes, no rhonchi. No accessory muscle use. HEART: Regular rate and rhythm, normal S1 and S2 without murmur, rub or gallop. ABDOMEN: Obese. Soft, nondistended. Nontender to palpation. No guarding, no rebound tendernes. Normoactive bowel sounds X4 quadrants. Hepatomegaly appreciated 4cm below costal margin. MUSCULOSKELETAL: Normal range of motion at all joints. Strength 5/5 b/l upper and lower extremities. UPPER EXTREMITIES: 2+ radial pulses b/l, warm, well-perfused. LOWER EXTREMITIES: 2+ dorsalis pedis pulses b/l, warm, well-perfused. No calf tenderness b/l. No lower extremity edema. NEUROLOGICAL: Cranial nerves II-XII intact. Normal speech. Normal gait. PSYCHIATRIC: Cooperative. Good eye contact. Appropriate mood and affect. SKIN: Warm, dry, normal turgor, no rashes or lesions noted, normal capillary refill. LABS Laboratory Results - last 24 hr 12/05/17 12/05/17 06:30 06:30 WBC 5.2 RBC 4.21 Hgb 11.9 Hct 35.5 MCV 84.1 MCH 28.2 MCHC 33.5 RDW 13.2 Plt Count 293 MPV 6.9 L Sodium 138 Potassium 4.2 Chloride 105 Carbon Dioxide 28 Anion Gap 5 L BUN 4 L Creatinine 0.7 Creat Clearance w eGFR > 60 Random Glucose 112 H Calcium 8.5 Total Bilirubin 0.5 AST 16 ALT 23 Alkaline Phosphatase 49 Total Protein 6.6 Albumin 2.9 L HOSPITAL COURSE: Date of Admission:12/02/17 Date of Discharge: 12/05/17 Patient is a 32 year old female with history of fibroids presenting with one week of abdominal pain associated with constipation. CT abdomen/ pelvis shows focal sigmoid inflammation with microperforation, suggestive of inflamed diverticulum vs collitis. Evaluated by surgery, and patient did not want surgery at this time. Continued with conservative management, and bowel rest. Started Zosyn IV with ID recommendation. Diet was advanced and patient tolerated well. Patient was discharged to follow up with primary care physician , and ID within one week of discharge. GI follow up in 6-8 weeks. Patient provided with surgical referral if she decided to proceed with surgical intervention in the future. Discharged with Augmentin for 7 more days. Minutes to complete discharge: 35 Discharge Summary Reason For Visit: PERFORATION OF SIGMOID COLON DUE TO DIVERTICULITI Current Active Problems Abdominal pain (Acute) Constipation (Acute) Epigastric abdominal pain (Acute) Nausea and vomiting (Acute) Obesity due to excess calories (Acute) Pelvic pain (Acute) Condition: Stable - Instructions Diet, Activity, Other Instructions: You were admitted for abdominal pain. Your CAT scan showed a small perforation within your colon. You were evaluated by the surgeon, and decided against surgical intervention. You were treated with intravenous antibiotics. You will continue taking antibiotic Augmentin 875-125mg every 12 hours, for the next 7 days. Continue taking your home medications as directed. You will follow up with your primary care physician within three to five days of discharge. You will also follow up with the infectious disease physician (Dr. Carmona) within one week of discharge. You will follow up with the electronics repair technician (Dr. Crawford) within 6-8 weeks. At that appointment you may need a colonoscopy. If at any point you decide to undergo surgery, a referral to general surgeon ( Dr. De Jesus) has been provided. For the net three weeks, follow a low fiber diet. After that time period, begin following a high fiber diet. Please return to the nearest emergency department if you experience fevers, chill, nausea, vomiting, worsening abdominal pain, any bleeding, blood in the stool, or worsening of symptoms Referrals: Arron Carmona MD [Staff Physician] - 1 Week Gerardo Marino MD [Non Staff, Medical] - ([phone]) Manuel Crawford DO [Staff Physician] - 01/16/18 () Kayode De Jesus MD [Staff Physician] - Disposition: HOME - Home Medications Comprehensive Discharge Medication List: Ambulatory Orders Famotidine [Pepcid] 20 mg PO DAILY #14 tablet 11/26/17 Amoxicillin/Potassium Clav [Augmentin 875-125 Tablet] 1 each PO Q12H 7 Days #14 tablet 12/05/17 This patient is new to me today: No Emergency Visit: Yes ED Registration Date: 12/02/17 Care time: The patient presented to the Emergency Department on the above date and was hospitalized for further evaluation of their emergent condition. Critical Care patient: No - Discharge Referral Referred to [facility] Med P.C.: No
--- NOTE | 2017-12-05 15:52 | PN ---
Teaching Attending Note Name of Resident: Norma Schuler ATTENDING PHYSICIAN STATEMENT I saw and evaluated the patient. I reviewed the resident's note and discussed the case with the resident. I agree with the resident's findings and plan as documented. SUBJECTIVE: Seen and examined; abdominal pain completely resolved, tolerating full meals. Mentating appropriately and verbalized understanding with plan. She will be discharged home with 7 additional days abx per ID and will followup with PCP and ID. Surgical followup per sgy. She will need a colonoscopy as an OP 6-8 weeks post resolution OBJECTIVE: VSS, labs wnl NAD, AAOx3 NT ND +BS RRR s1/2 no mgr CTAB with sym exp CN2-12 grossly intact, no FND ASSESSMENT AND PLAN: 1) Abdominal Pain 2/2 Sigmoid perforation -Patient opted for nonoperative management. Her symptoms have resolved and she may use APAP for PRN pain control. She will complete another 7 days of 875 BID Augmentin per ID. Followup with PCP, ID, C-scope 6-8 weeks, and sgy. She was counseled extensively on when to return to the ER and verbalized understanding. 2) Morbid Obesity: BMI 43. Counseling provided regarding diet and exercise Followups per resident note Med Rec in EMR Full Code Thank you for the consulting services for their continued help in the management of this patient. 35 minutes spent on this DC including counseling
== END 2017-12-05 15:42 | disposition home or self-care (01) | DRG 244 ==
LOC: JER 17:40 → JERBED 12-02 01:39 → J8W 12-02 04:15
PROVIDERS: ADMIT Internal Medicine; ATTEND Internal Medicine
DX: K57.20 Diverticulitis of large intestine with perforation and abscess without bleeding (principal); E66.01 Morbid (severe) obesity due to excess calories; Z68.41 Body mass index [BMI] 40.0-44.9, adult; Z87.891 Personal history of nicotine dependence; K59.00 Constipation, unspecified; D72.829 Elevated white blood cell count, unspecified
CPT/HCPCS: 36415; 74177-TC; 80048; 80053; 81003; 83735; 84100; 84703; 85025; 85027; 85610; 85730; 86850; 86900; 86901; 99283-25; J0131; J7030

== ENCOUNTER 2018-03-12 09:22 | Observation (INO) | payer OTHER ==
[2018-03-12] MEDS ORDERED: ONDANSETRON 4 MG/2 ML VIAL IVPB ONE ×2 (10:10→16:01)
[2018-03-12] MEDS ORDERED: PANTOPRAZOLE SODIUM 40 MG VIAL IVPUSH ONE (10:11)
[2018-03-12] MEDS ORDERED: PANTOPRAZOLE SODIUM 40 MG/100 ML BAG IVPB ONE (10:16)
[2018-03-12] MEDS ORDERED: ONDANSETRON 4 MG/2 ML VIAL ONE ×2 (10:16→16:03)
[2018-03-12] MEDS ORDERED: LACTATED RINGERS SOLUTION 1000 ML INFUS.BAG IV ONE ×2 (10:25→14:09)
[2018-03-12 10:41] LABS: BASO % 0.1 % (0-2.0); EOS % 0.2 % (0-4.5); HEMOGLOBIN 13.3 GM/dL (10.7-15.3); MCH 29.3 pg (25.7-33.7); MCHC 34.1 g/dl (32.0-36.0); MEAN CELL VOLUME 85.8 fl (80-96); MEAN PLT VOLUME 7.2 fl (7.5-11.1); MONO % 4.3 % (3.8-10.2); NEUT % 82.4 % (42.8-82.8); PLATELET COUNT 262 K/MM3 (134-434); RBC 4.54 M/mm3 (3.60-5.2); RDW 14.2 % (11.6-15.6); RETICULOCYTES 1.06 % (0.5-1.5); WHITE BLOOD COUNT 11.5 K/mm3 (4.0-10.0)
[2018-03-12] MEDS ORDERED: SODIUM CHLORIDE 1,000 ML IV STA (10:43)
--- NOTE | 2018-03-12 10:49 | PDOC ---
Attending Attestation - Resident Resident Name: Gearrdo Sanderson - ED Attending Attestation I have performed the following: I have examined & evaluated the patient, The case was reviewed & discussed with the resident, I agree w/resident's findings & plan - HPI HPI: 03/12/18 10:44 32-year-old female with no severe past medical history other than recent admission in November for likely sigmoid diverticulitis with microperforation treated conservatively with antibiotics with resolution of symptoms, noncompliant with outpatient GI follow-up but otherwise without GI history presents now with vomiting this morning. Patient was in her usual state of normal health, had normal by mouth intake last night, took 2 aspirin this morning for pelvic cramps for her menses, subsequently had nausea with clear sputum vomit at work followed by multiple episodes of forceful vomiting with bright red blood and now dark fluid. No abdominal pain, no syncope, no melena or bright red blood per rectum. No diarrhea. No recent travel, no antibiotics in stretcher regimen was completed in December , no excessive NSAID use, no history of excessive alcohol use. Never had egd/ cscope - Physicial Exam PE: 03/12/18 10:47 Vitals are within normal limits, no tachycardia or hypotension Alert, dry mucosa, no jaundice or pallor Regular heart rate Abdomen is soft/nontender/nondistended, no epigastric guarding or rebound. Guaiac with small amount of brown stool - Medical Decision Making 03/12/18 10:48 32-year-old female with history of likely diverticulitis presents now with initially clear vomiting followed by bloody vomit, benign abdominal exam and hemodynamically stable. Presentation could be consistent with gastritis, rule out biliary or pancreatic etiology, rule out PUD. Clear vomit followed by bloody vomit suggests Preethi-Jade tear, no pain or tenderness to suggest PUD. no peritoneal findings. labs, ua antacid, antiemetic ivf rehydration reassess 03/12/18 15:17 labs wnl, no leukocytosis, normal LFTs, normal Lipase. negative, guaiac negative emesis cleared, no further blood. remained pain free with benign abdominal exam. had recurrent episode of vomiting after zofran, treated with reglan and sxs improved again. requesting discharge on zofran, understands diet modifications and understands return criteria. GI f/u as previously planned after last admission. In the absence of any pain or exam findings, no indication for emergent imaging in this young woman.
[2018-03-12 10:55] LABS: INR 0.98 (0.83-1.09); PROTHROMBIN TIME (PATIENT) 11.6 SEC (9.7-13.0)
--- NOTE | 2018-03-12 11:01 | PDOC ---
History of Present Illness - General Chief Complaint: Vomiting Blood Stated Complaint: VOMITING BLOOD Time Seen by Provider: 03/12/18 09:49 History Source: Patient Exam Limitations: No Limitations - History of Present Illness Initial Comments: Patient is a 32 y/o F w/ PMHx fibroids, sigmoid diverticulitis w/ microperformation treated conservatively at [facility] in November and patient was non- adherent to outpt GI f/u at that time, was in [facility] until this morning when she p /w 1-2 hours nausea and hematemesis. Prior to onset of symptoms took 2 ASA for pelvic cramping 2/2 menses. Initially had bout of clear emesis, then experienced forceful dry wretching and vomitus turned bloody and has been unremitting upon presentation. At time of encounter patient is restless and struggling for postural relief from nausea. Denied abd or any other pain, denies diarrhea, denies respiratory complaints. ROS otherwise negative. Denies use of daily medication, in particular denies frequent NSAID/ASA use except PRN for pelvic cramps. Endorses occasional drinking of wine but denies any excess EtOH. Has never experienced these symptoms before. 03/12/18 10:51 Past History - Travel Traveled outside of the country in the last 30 days: No Close contact w/someone who was outside of country & ill: No - Past Medical History Allergies/Adverse Reactions: Allergies Allergy/AdvReac Type Severity Reaction Status Date / Time No Known Allergies Allergy Verified 03/12/18 09:23 Home Medications: Ambulatory Orders Famotidine [Pepcid] 20 mg PO DAILY #14 tablet 11/26/17 Asthma: Yes COPD: No CHF: No GI Disorders: Yes (constipation) - Surgical History Abdominal Surgery: Yes - Reproductive History (#): 2 Para: 0 Cervical CA: No Dysfunctional Uterine Bleeding: No Ectopic : No Endometrial CA: No Polycystic Ovaries: No Therapeutic (s) & number: No Tubal Ligation: No Spontaneous : 0 - Immunization History Immunization Up to Date: Yes - Suicide/Smoking/Psychosocial Hx Smoking History: Never smoked Have you smoked in the past 12 months: No Number of Cigarettes Smoked Daily: 3 If you are a former smoker, when did you quit?: 07/2013 Hx Alcohol Use: No Drug/Substance Use Hx: No Substance Use Type: None Review of Systems - Review of Systems Comments:: As per HPI 03/12/18 11:01 *Physical Exam - Vital Signs Last Vital Signs Temp Pulse Resp BP Pulse Ox 98.1 F 85 20 152/61 100 03/12/18 09:23 03/12/18 09:23 03/12/18 09:23 03/12/18 09:23 03/12/18 09:23 - Physical Exam Comments: Gen: A&Ox3, in distress HEENT: NC/AT, PERRLA, EOMI, MMM Neck: supple no LAD, no JVD CV: RRR no m/r/g Resp: CTA b/l Abd: +bs, soft, NT, ND Ext: 2+ pulses wwp Neuro: architect marine, motor, sensory systems w/o focal deficit Skin: warm, dry, normal turgor Rectal: 1 external hemorrhoid, 1 internal hemorrhoid, no stool in vault, no masses, scant brown stool without blood on finger 03/12/18 11:01 Moderate Sedation - Procedure Monitoring Vital Signs: Procedure Monitoring Vital Signs Temperature 98.1 F 03/12/18 09:23 Pulse Rate 85 03/12/18 09:23 Respiratory Rate 20 03/12/18 09:23 Blood Pressure 152/61 03/12/18 09:23 O2 Sat by Pulse Oximetry (%) 100 03/12/18 09:23 ED Treatment Course - LABORATORY CBC & Chemistry Diagram: 03/12/18 09:18 03/12/18 09:18 - ADDITIONAL ORDERS Additional order review: 03/12/18 09:18 RBC 4.54 MCV 85.8 MCHC 34.1 RDW 14.2 MPV 7.2 L Neutrophils % 82.4 D Lymphocytes % 13.0 D Monocytes % 4.3 Eosinophils % 0.2 D Basophils % 0.1 - Medications Given in the ED: ED Medications Discontinued Medications Generic Name Dose Route Start Last Admin Trade Name Freq PRN Reason Stop Dose Admin Ondansetron HCl 8 mg 03/12/18 10:10 03/12/18 10:25 Zofran Injection IVPB 03/12/18 10:11 8 mg ONCE ONE Administration Pantoprazole Sodium 40 mg 03/12/18 10:11 03/12/18 10:25 Protonix Iv IVPUSH 03/12/18 10:12 40 mg ONCE ONE Administration Medical Decision Making - Medical Decision Making DDx is broad. Hematemesis may be 2/2 Preethi-Jade tear. Ordered anemia w/u, Mg , Phos. Gave fluid resuscitation, Zofran, Protonix IV. Will observe and await lab results. 03/12/18 11:03 FOBT negative. Serum hCG negative. H/H stable to 13.3/39, mild leukocytosis to 11.5, otherwise initial labs unremarkable. 03/12/18 11:26 Patient is still nauseous but has stopped vomiting and requests food. Will attempt a trial of liquid diet. 03/12/18 11:58 Lipase wnl. 03/12/18 12:11 Patient complains of vomiting contents of liquid diet. Will attempt to control nausea w/ Reglan. 03/12/18 13:55 Patient continues to vomit, however vomitus no longer appears bloody. Will observe as Reglan takes effect and give further fluid resuscitation w/ LR. 03/12/18 14:25 Vomiting continues after Reglan and LR although hematemesis has resolved. D/w Dr. Ferrari. Will admit to obs. Placed GI consultation. 03/12/18 16:10 *DC/Admit/Observation/Transfer Diagnosis at time of Disposition: Nausea & vomiting Qualifiers: Vomiting Intractability: intractable - Discharge Dispostion Decision to Admit order: Yes - Referrals - Patient Instructions - Post Discharge Activity
[2018-03-12 11:10] LABS: ALK PHOS 69 U/L (45-117); ANION GAP 8 MMOL/L (8-16); BILIRUBIN,TOTAL 0.4 mg/dL (0.2-1); BLOOD UREA NITROGEN 8 mg/dL (7-18); CALCIUM 8.5 mg/dL (8.5-10.1); CHLORIDE 105 mmol/L (98-107); CO2 28 mmol/L (21-32); CREATININE 0.7 mg/dL (0.55-1.3); GLUCOSE,RANDOM 119 mg/dL (74-106); MAGNESIUM 1.9 mg/dL (1.8-2.4); PHOSPHOROUS 3.1 mg/dL (2.5-4.9); POTASSIUM 3.7 mmol/L (3.5-5.1); SGOT/AST 18 U/L (15-37); SGPT/ALT 21 U/L (13-61); SODIUM 141 mmol/L (136-145); TOT PROT 7.3 g/dl (6.4-8.2)
[2018-03-12] MEDS ORDERED: METOCLOPRAMIDE HCL INJECTION 10 MG/2 ML VIAL IVPUSH ONE (13:55)
[2018-03-12] MEDS ORDERED: METOCLOPRAMIDE HCL INJECTION 10 MG/2 ML VIAL ONE (14:11)
--- NOTE | 2018-03-12 16:45 | HP ---
Admitting History and Physical - Primary Care Physician PCP: Marco Garcia - Admission History of Present Illness: 32-year-old female with no severe past medical history other than recent admission in November for likely sigmoid diverticulitis with microperforation treated conservatively with antibiotics with resolution of symptoms, noncompliant with outpatient GI follow-up but otherwise without GI history presents now with vomiting this morning. Patient took 2 aspirin this morning for pelvic cramps for her menses, subsequently had nausea with clear sputum vomit at work followed by multiple episodes of forceful vomiting with bright red blood and now dark fluid. No abdominal pain, no syncope, no melena or bright red blood per rectum. 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 Home Medications - Allergies Allergies/Adverse Reactions: Allergies Allergy/AdvReac Type Severity Reaction Status Date / Time No Known Allergies Allergy Verified 03/12/18 09:23 - Home Medications Home Medications: Ambulatory Orders Famotidine [Pepcid] 20 mg PO DAILY #14 tablet 11/26/17 Family Disease History - Family Disease History Family Disease History: CA: Grandparent (maternal GF colon CA >60yo, in 80s ) Physical Examination Vital Signs: Vital Signs Temperature 97.8 F 03/12/18 15:37 Pulse Rate 85 03/12/18 15:37 Respiratory Rate 18 03/12/18 15:37 Blood Pressure 135/80 03/12/18 15:37 O2 Sat by Pulse Oximetry (%) 100 03/12/18 15:37 Constitutional: Yes: Anxious HENT: Yes: Atraumatic Neck: Yes: Supple Cardiovascular: Yes: Regular Rate and Rhythm Respiratory: Yes: CTA Bilaterally Gastrointestinal: Yes: Normal Bowel Sounds Extremities: Yes: WNL Edema: No Neurological: Yes: Alert, Oriented Labs: CBC, BMP 03/12/18 09:18 03/12/18 09:18 Problem List - Problems (1) Upper GI bleed Assessment/Plan: npo ivf fu cbc observe Code(s): K92.2 - GASTROINTESTINAL HEMORRHAGE, UNSPECIFIED (2) Nausea and vomiting Assessment/Plan: npo ivf prn zofran/tigan gi prophylaxis gi consult Code(s): R11.2 - NAUSEA WITH VOMITING, UNSPECIFIED Qualifiers: Vomiting Intractability: intractable Assessment/Plan Laboratory Tests 03/12/18 03/12/18 03/12/18 09:18 09:18 09:18 WBC 11.5 H RBC 4.54 Hgb 13.3 Hct 39.0 MCV 85.8 MCH 29.3 MCHC 34.1 RDW 14.2 Plt Count 262 MPV 7.2 L Absolute Neuts (auto) 9.4 H Neutrophils % 82.4 D Lymphocytes % 13.0 D Monocytes % 4.3 Eosinophils % 0.2 D Basophils % 0.1 Nucleated RBC % 0 Retic Count 1.06 PT with INR 11.60 INR 0.98 Sodium 141 Potassium 3.7 Chloride 105 Carbon Dioxide 28 Anion Gap 8 BUN 8 Creatinine 0.7 Creat Clearance w eGFR > 60 Random Glucose 119 H Calcium 8.5 Phosphorus Magnesium Total Bilirubin 0.4 AST 18 ALT 21 Alkaline Phosphatase 69 Total Protein 7.3 Albumin 4.0 Lipase Serum , Qual Stool Occult Blood Blood Type Antibody Screen 03/12/18 03/12/18 03/12/18 09:18 09:18 09:18 WBC RBC Hgb Hct MCV MCH MCHC RDW Plt Count MPV Absolute Neuts (auto) Neutrophils % Lymphocytes % Monocytes % Eosinophils % Basophils % Nucleated RBC % Retic Count PT with INR INR Sodium Potassium Chloride Carbon Dioxide Anion Gap BUN Creatinine Creat Clearance w eGFR Random Glucose Calcium Phosphorus 3.1 Magnesium 1.9 Total Bilirubin AST ALT Alkaline Phosphatase Total Protein Albumin Lipase 120 Serum , Qual Negative Stool Occult Blood Blood Type O POSITIVE Antibody Screen Negative 03/12/18 10:34 WBC RBC Hgb Hct MCV MCH MCHC RDW Plt Count MPV Absolute Neuts (auto) Neutrophils % Lymphocytes % Monocytes % Eosinophils % Basophils % Nucleated RBC % Retic Count PT with INR INR Sodium Potassium Chloride Carbon Dioxide Anion Gap BUN Creatinine Creat Clearance w eGFR Random Glucose Calcium Phosphorus Magnesium Total Bilirubin AST ALT Alkaline Phosphatase Total Protein Albumin Lipase Serum , Qual Stool Occult Blood Negative Blood Type Antibody Screen Active Medications Generic Name Dose Route Start Last Admin Trade Name Freq PRN Reason Stop Dose Admin Pantoprazole Sodium 20 mg 03/13/18 10:00 03/13/18 09:56 Protonix - PO 20 mg DAILY RUPA Administration Trimethobenzamide HCl 200 mg 03/12/18 19:30 03/12/18 20:15 Tigan Injection - IM 200 mg Q8H PRN Administration NAUSEA
[2018-03-12] MEDS ORDERED: morphine CARPU-JECT 2 MG/1 ML DISP.SYRIN IVPUSH STA (17:06)
[2018-03-12] MEDS ORDERED: TRIMETHOBENZAMIDE HCL 200MG/2ML INJ IM PRN (19:30)
[2018-03-12] MEDS ORDERED: PANTOPRAZOLE SODIUM 40 MG VIAL IVPUSH SCH (22:00)
[2018-03-12] MEDS ORDERED: PANTOPRAZOLE SODIUM 40 MG VIAL ONE (22:01)
[2018-03-13 02:33] VITALS: BMI 42.5
[2018-03-13 08:15] LABS: BASO % 0.3 % (0-2.0); EOS % 0.5 % (0-4.5); HEMATOCRIT 36.2 % (32.4-45.2); HEMOGLOBIN 12.3 GM/dL (10.7-15.3); MCH 29.1 pg (25.7-33.7); MCHC 33.9 g/dl (32.0-36.0); MEAN CELL VOLUME 85.8 fl (80-96); MEAN PLT VOLUME 7.5 fl (7.5-11.1); MONO % 9.4 % (3.8-10.2); NEUT % 61.8 % (42.8-82.8); PLATELET COUNT 221 K/MM3 (134-434); RBC 4.22 M/mm3 (3.60-5.2); RDW 14.2 % (11.6-15.6); WHITE BLOOD COUNT 7.9 K/mm3 (4.0-10.0)
[2018-03-13 08:39] LABS: ALBUMIN 3.2 g/dl (3.4-5.0); ALK PHOS 45 U/L (45-117); ANION GAP 8 MMOL/L (8-16); BILIRUBIN,TOTAL 0.7 mg/dL (0.2-1); BLOOD UREA NITROGEN 6 mg/dL (7-18); CHLORIDE 104 mmol/L (98-107); CO2 27 mmol/L (21-32); CREATININE 0.7 mg/dL (0.55-1.3); GLUCOSE,RANDOM 101 mg/dL (74-106); POTASSIUM 3.4 mmol/L (3.5-5.1); SGOT/AST 12 U/L (15-37); SGPT/ALT 18 U/L (13-61); SODIUM 140 mmol/L (136-145); TOT PROT 6.1 g/dl (6.4-8.2)
--- NOTE | 2018-03-13 09:19 | CON.GI ---
Consult Consult Specialty:: GI Referred by:: Dr. Garcia Reason for Consultation:: Vomiting - History of Present Illness Chief Complaint: Vomiting then vomited blood History of Present Illness: 32F admitted through [facility] ER for ewvaluation of vomiting then vomiting of blood. The patient states that she was in her USOH up until yesterday morning, when she developed nausea followed by multiple episodes of clear vomiting. The nausea persisted along with vomiting and on her drive home from work yesterday, vomited bright red blood as well that eventually became dark. She denies chest pain, dysphagia, odynophagia, abdominal pain. She denies NSAID use or similar episodes in the past. She took tylenol PM the day before for menstrual cramps. She made a meatloaf, leni greens and macaroni and cheese the night befoi and her boyfriend has complained of diarrhea the next morning. She denies melena, jovani rectal bleeding. She was admitted this past November for a sigmoid diverticulitis w/ microperforation and treated conservatively with ABx. She has not seen GI because she says "the person they referred her to only takes her insurance in the hospital". Her maternal GF, Maternal uncle have a history of colon cancer. - History Source History Provided By: Patient, Medical Record Limitations to Obtaining History: No Limitations - Past Medical History Gastrointestinal: Yes: Diverticulitis (12/07) ...LMP: 03/12/18 ...: No - Past Surgical History Past Surgical History: Yes: - Alcohol/Substance Use Hx Alcohol Use: Yes (social) History of Substance Use: reports: None - Smoking History Smoking history: Former smoker Have you smoked in the past 12 months: No Aproximately how many cigarettes per day: 3 If you are a former smoker, when did you quit?: 07/2013 - Social History Usual Living Arrangement: With Child ADL: Independent 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 1 from HIV complications), Sister (4: 1 from HIV complications), Son (1, healthy) Other Family History: Maternal Uncle with colon cancer Review of Systems - Review of Systems Constitutional: denies: Fever, Lethargy, Loss of Appetite, Unintentional Wgt. Loss Cardiovascular: denies: Chest Pain Respiratory: denies: Cough, SOB Gastrointestinal: reports: Vomiting (resolved), Vomiting Blood (resolved). denies: Diarrhea, Dysphagia, Rectal Bleeding Physical Exam-GI Vital Signs: Vital Signs Temperature 98.3 F 03/13/18 04:00 Pulse Rate 83 03/13/18 04:00 Respiratory Rate 18 03/13/18 04:00 Blood Pressure 112/53 L 03/13/18 04:00 O2 Sat by Pulse Oximetry (%) 99 03/13/18 00:59 Constitutional: Yes: Calm Eyes: No: Sclera Icterus Cardiovascular: Yes: Regular Rate and Rhythm Respiratory: Yes: CTA Bilaterally Gastrointestinal Inspection: Yes: Scars (low pelvic scar). No: Distention ...Auscultate: Yes: Normoactive Bowel Sounds ...Palpate: Yes: Soft. No: Guarding, Hepatomegaly, Splenomegaly, Tenderness ...Percussion: No: Tympanitic Edema: No (No LE edema) Neurological: Yes: Alert Labs: CBC, BMP 03/13/18 06:00 03/13/18 06:46 INR, PTT INR 0.98 (0.83-1.09) 03/12/18 09:18 Problem List - Problems (1) Nausea and vomiting Assessment/Plan: followed by hematemesis. Suspect irritation secondary to mutiple vomiting episodes, possible raymond domingo tear. Hemodynamically stable, stable H/H, with normal BUN which is not suggestive of significant upper GI bleed. Her boyfriend had GI symptomatology as well. Suspect vomiting precipitated by acute gastroenteritis vs. food poisoning. Advise: Advancing diet to full liquid. If tolerates then soft diet Protonix 20mg once daily for 2 weeks Avoidance of NSAIDs Will need follow-up of recent episode of diverticulitis. I explained that she call my office and check to see if I take her insurance as she has had trouble following up with GI last admission due to this. I advised if I do not accept her insurance that she call her insurance compainy to find a participating provider in the area. Code(s): R11.2 - NAUSEA WITH VOMITING, UNSPECIFIED Qualifiers: Vomiting Intractability: intractable
[2018-03-13] MEDS ORDERED: PANTOPRAZOLE 20 MG TABLET (FP) PO SCH (10:00)
[2018-03-13] MEDS ORDERED: PT OWN MED DRAWER 7, Y5N ONE (10:06)
--- NOTE | 2018-03-13 16:08 | DS ---
Physical Examination Vital Signs: Vital Signs Temperature 98.7 F 03/13/18 09:00 Pulse Rate 74 03/13/18 09:00 Respiratory Rate 18 03/13/18 09:00 Blood Pressure 119/60 03/13/18 09:00 O2 Sat by Pulse Oximetry (%) 99 03/13/18 00:59 Constitutional: Yes: Calm HENT: Yes: Atraumatic Neck: Yes: Supple Cardiovascular: Yes: Regular Rate and Rhythm Respiratory: Yes: CTA Bilaterally Gastrointestinal: Yes: Normal Bowel Sounds Extremities: Yes: WNL Edema: No Neurological: Yes: Alert Labs: CBC, BMP 03/13/18 06:00 03/13/18 06:46 Discharge Summary Reason For Visit: NAUSEA AND VOMITTING Current Active Problems Nausea and vomiting (Acute) Upper GI bleed (Acute) - Instructions - Home Medications Comprehensive Discharge Medication List: Ambulatory Orders Famotidine [Pepcid] 20 mg PO DAILY #14 tablet 11/26/17 tolerating diet h/h stable dc home
[2018-03-13 16:14] VITALS: BP 110/44; PULSE 88; TEMP 98.9
== END 2018-03-13 16:35 | disposition home or self-care (01) ==
LOC: JER 09:22 → JERBED 16:12 → J5S 03-13 01:53
PROVIDERS: ADMIT Internal Medicine; ATTEND Internal Medicine
PROC: 3E033GC Introduction of Other Therapeutic Substance into Peripheral Vein, Percutaneous Approach (ICD-10-PCS; principal; 2018-03-12)
PROC: 3E0337Z Introduction of Electrolytic and Water Balance Substance into Peripheral Vein, Percutaneous Approach (ICD-10-PCS; 2018-03-12)
PROC: 3E013GC Introduction of Other Therapeutic Substance into Subcutaneous Tissue, Percutaneous Approach (ICD-10-PCS; 2018-03-12)
DX: K92.2 Gastrointestinal hemorrhage, unspecified (principal); R11.2 Nausea with vomiting, unspecified
CPT/HCPCS: 36415; 80053; 82272; 83690; 83735; 84100; 84703; 85025; 85044; 85610; 86850; 86900; 86901; 96361; 96372; 96374; 96375; 96376; 99285-25; G0378; J7030

== ENCOUNTER 2018-06-13 09:19 | Observation (INO) | payer SELFPAY ==
[2018-06-13] MEDS ORDERED: ONDANSETRON 4 MG/2 ML VIAL IVPUSH ONE ×3 (10:00→21:18)
[2018-06-13] MEDS ORDERED: KETOROLAC TROMETHAMINE 30 MG/1 ML VIAL IVPUSH ONE (10:00)
[2018-06-13] MEDS ORDERED: SODIUM CHLORIDE 1,000 ML IV STA ×2 (10:00→14:03)
--- NOTE | 2018-06-13 10:00 | PDOC ---
*Physical Exam - Vital Signs Last Vital Signs Temp Pulse Resp BP Pulse Ox 97.7 F 83 18 134/94 98 06/13/18 09:21 06/13/18 09:21 06/13/18 09:21 06/13/18 09:21 06/13/18 09:21 ED Treatment Course - LABORATORY CBC & Chemistry Diagram: 06/14/18 06:00 06/14/18 06:00 Medical Decision Making - Medical Decision Making 06/13/18 10:00 Pt seen by Midlevel Provider under my direct supervision Ancillary studies reviewed I agree with plan as outlined by Midlevel Provider *DC/Admit/Observation/Transfer Diagnosis at time of Disposition: Nausea and vomiting, Epigastric pain - Discharge Dispostion Disposition: HOME Condition at time of disposition: Improved - Referrals - Patient Instructions - Post Discharge Activity
--- NOTE | 2018-06-13 10:05 | PDOC ---
History of Present Illness - General Chief Complaint: Pain Stated Complaint: VOMITING Time Seen by Provider: 06/13/18 09:35 History Source: Patient - History of Present Illness Abdominal Pain Onset Location: reports: epigastric Past History - Past Medical History Allergies/Adverse Reactions: Allergies Allergy/AdvReac Type Severity Reaction Status Date / Time No Known Allergies Allergy Verified 06/13/18 09:23 Home Medications: Ambulatory Orders NK [No Known Home Medication] 06/13/18 Asthma: Yes COPD: No CHF: No GI Disorders: Yes (diverticulitis) - Surgical History Abdominal Surgery: Yes - Reproductive History (#): 2 Para: 0 Cervical CA: No Dysfunctional Uterine Bleeding: No Ectopic : No Endometrial CA: No Polycystic Ovaries: No Therapeutic (s) & number: No Tubal Ligation: No Spontaneous : 0 - Immunization History Immunization Up to Date: Yes - Suicide/Smoking/Psychosocial Hx Smoking History: Never smoked Have you smoked in the past 12 months: No Number of Cigarettes Smoked Daily: 3 If you are a former smoker, when did you quit?: 07/2013 Information on smoking cessation initiated: No Hx Alcohol Use: No Drug/Substance Use Hx: No Substance Use Type: None Review of Systems - Review of Systems Constitutional: No: Chills, Fever Respiratory: No: Shortness of Breath Cardiac (ROS): No: Chest Pain ABD/GI: Yes: Nausea, Vomiting, Abdominal cramping : No: Dysuria, Flank Pain *Physical Exam - Vital Signs Last Vital Signs Temp Pulse Resp BP Pulse Ox 97.7 F 83 18 134/94 98 06/13/18 09:21 06/13/18 09:21 06/13/18 09:21 06/13/18 09:21 06/13/18 09:21 - Physical Exam Comments: 06/13/18 17:45 actively vomiting in ED General Appearance: Yes: Appropriately Dressed, Severe Distress HEENT: positive: Normal Voice Neck: positive: Supple Respiratory/Chest: positive: Lungs Clear, Normal Breath Sounds. negative: Respiratory Distress Cardiovascular: positive: Regular Rate, S1, S2 Gastrointestinal/Abdominal: positive: Tender (minimal ttp to epigastrium, NT over RUQ/RLQ), Soft Musculoskeletal: negative: CVA Tenderness Integumentary: positive: Dry, Warm Neurologic: positive: Fully Oriented, Alert, Normal Mood/Affect ED Treatment Course - LABORATORY CBC & Chemistry Diagram: 06/13/18 10:10 06/13/18 10:10 Medical Decision Making - Medical Decision Making 06/13/18 09:58 32 yo F, h/o fibroids, sigmoid diverticulitis with microperforation, treated conservatively at [facility] November of last year, here with sudden onset nausea and vomiting this am and now noticed BRB in vomitus. No significant abd pain at this time and denies diarrhea, fever or chills. No dysuria. States nausea, vomiting similar to her prior diverticulitis. Denies freq NSAID or ETOH use. Denies marijuana use. Of note, patient presented similarly 2 months ago and had negative labs and sent home with protonix which did relieve symptoms per patient. Has not f/u with GI See exam N/V w/ hematemesis Similar presentation 03/10 and seen by GI who deemed hematemesis 2/2 irritation due to multiple e/o n/v and unlikely raymond domingo Pt had neg labs and was discharged w/ protonix at the time Has not f/u with GI since Appears uncomfortable here, actively vomiting in ER, initially w/ hematemesis but mostly clear now w/ benign abd -antiemetic -IVF -labs -Ct given h/o diverticulitis 06/13/18 14:[address] unremarkable. Nausea, vomiting have subsided in ED the patient still has mild nausea and feels weak. Will continue to hydrate and manage symptoms. Dispo pending 06/13/18 14:44 06/13/18 16:07 Despite multiple attempts to control symptoms in ED, patient still appears unwell and now dry heaving in ED, no significant abdominal pain at this time. May need admission for further observation. Will also place c/w GI. Pt seen by Dr Crawford on last visit *DC/Admit/Observation/Transfer Diagnosis at time of Disposition: Epigastric pain Nausea and vomiting Qualifiers: Vomiting type: unspecified Vomiting Intractability: non-intractable Qualified Code(s): R11.2 - Nausea with vomiting, unspecified - Discharge Dispostion Condition at time of disposition: Fair Decision to Admit order: Yes - Referrals - Patient Instructions - Post Discharge Activity
[2018-06-13] MEDS ORDERED: ONDANSETRON 4 MG/2 ML VIAL ONE ×2 (10:35→12:53)
[2018-06-13] MEDS ORDERED: KETOROLAC TROMETHAMINE 30 MG/1 ML VIAL ONE (10:35)
[2018-06-13 10:44] LABS: BASO % 0.5 % (0-2.0); EOS % 0.8 % (0-4.5); HEMATOCRIT 41.2 % (32.4-45.2); HEMOGLOBIN 13.8 GM/dL (10.7-15.3); LYMPH % 14.5 % (8-40); MCH 28.8 pg (25.7-33.7); MCHC 33.5 g/dl (32.0-36.0); MEAN CELL VOLUME 86.1 fl (80-96); MEAN PLT VOLUME 7.3 fl (7.5-11.1); MONO % 5.9 % (3.8-10.2); NEUT % 78.3 % (42.8-82.8); PLATELET COUNT 262 K/MM3 (134-434); RBC 4.79 M/mm3 (3.60-5.2); RDW 13.9 % (11.6-15.6); WHITE BLOOD COUNT 11.3 K/mm3 (4.0-10.0)
[2018-06-13] MEDS ORDERED: FAMOTIDINE 20 MG/50 ML IVPB 20 MG/50 ML MG IVPB ONE ×2 (10:51→10:53)
[2018-06-13] MEDS ORDERED: METOCLOPRAMIDE HCL INJECTION 10 MG/2 ML VIAL IVPB ONE (10:59)
[2018-06-13] MEDS ORDERED: METOCLOPRAMIDE HCL INJECTION 10 MG/2 ML VIAL ONE ×2 (11:03→17:53)
[2018-06-13 11:11] LABS: ALBUMIN 4.1 g/dl (3.4-5.0); ALK PHOS 66 U/L (45-117); ANION GAP 7 MMOL/L (8-16); BILIRUBIN,TOTAL 0.8 mg/dL (0.2-1); BLOOD UREA NITROGEN 11 mg/dL (7-18); CHLORIDE 105 mmol/L (98-107); CO2 27 mmol/L (21-32); CREATININE 0.7 mg/dL (0.55-1.3); GLUCOSE,RANDOM 124 mg/dL (74-106); POTASSIUM 3.8 mmol/L (3.5-5.1); SGOT/AST 17 U/L (15-37); SGPT/ALT 23 U/L (13-61); SODIUM 140 mmol/L (136-145); TOT PROT 7.7 g/dl (6.4-8.2)
[2018-06-13 11:41] LABS: EPI CELLS 6.1 /HPF (0-5/HPF); URINE APPEARANCE TURBID; URINE BACTERIA 92.1 /hpf (NEGATIVE); URINE BILIRUBIN NEGATIVE (NEGATIVE); URINE CASTS 3 /lpf (0-8); URINE COLOR ORANGE; URINE GLUCOSE (UA) NEGATIVE (NEGATIVE); URINE KETONE TRACE (NEGATIVE); URINE LEUK ESTERASE 1+ (NEGATIVE); URINE NITRITE NEGATIVE (NEGATIVE); URINE PROTEIN 2+ (NEGATIVE); URINE RBC 767 /hpf (0-4); URINE WBC 32 /hpf (0-5)
[2018-06-13 12:40] LABS: LIPASE 127 U/L (73-393)
[2018-06-13] MEDS ORDERED: SUCRALFATE 1 GM TABLET (FP) PO ONE (14:20)
[2018-06-13] MEDS ORDERED: PANTOPRAZOLE 40 MG TABLET (FP) PO ONE (14:20)
[2018-06-13] MEDS ORDERED: PANTOPRAZOLE 40 MG TABLET (FP) ONE (15:10)
[2018-06-13] MEDS ORDERED: SUCRALFATE 1 GM TABLET (FP) ONE (15:11)
--- NOTE | 2018-06-13 16:59 | HP ---
Admitting History and Physical - Primary Care Physician PCP: none - Admission Chief Complaint: Nausea and vomiting x2 days History of Present Illness: Pt is a 32 yo F with hx of fibroids and diverticulitis presenting with nausea and vomiting x 2days. Pt reports nausea and vomiting starting suddenly yesterday. Non-projectile, no fevers, no headaches, no vertigo, no hearing loss , no dizziness. No change in diet and no contact with sick person or hx of similar illness in someone else. Pt denies drug or marijuana use. Pt reports too many episodes to count. Per ED staff, they noted what appears like blood earlier which has since cleared. Patient reports passing stool this am, greenish , non bloody, no prior hx of constipation or rectal bleeds. Pt reports taking a pain reliever yesterday to help her with menstrual cramps LMP_06/14/18. She denies relationship between cramps/menstrual period with nausea/vomiting and does not use OCPS. Pt had similar presentation in past, was seen by GI who thought she could have had a transient Preethi Jade tear from retching. Patient also did not report following up as an outpatient. Patient requested zofran and morphine, saying that is what helped her in the past. ED: In the ED, she received protonix, famotidine, sucralfate, metoclopramide, zofran , toradol and normal saline. UA- protein-2+, Bld 3+, LE1+, WBC-32, RBC-767, Epith-6.1, urine bacteria 92 CTAP-No diverticulitis or acute pathology History Source: Patient Limitations to Obtaining History: No Limitations - Past Medical History Gastrointestinal: Yes: Diverticulitis Reproductive: Yes: Fibroids ...LMP: 03/12/18 ...: No - Past Surgical History Past Surgical History: Yes: - Smoking History Smoking history: Never smoked Have you smoked in the past 12 months: No Aproximately how many cigarettes per day: 3 If you are a former smoker, when did you quit?: 07/2013 - Alcohol/Substance Use Hx Alcohol Use: No History of Substance Use: reports: None - Social History ADL: Independent 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 1 from HIV complications), Sister (4: 1 from HIV complications), Son (1, healthy) Review of Systems - Review of Systems Constitutional: denies: Chills, Fever, Lethargy Eyes: denies: Blurred Vision, Double Vision, Photophobia HENT: denies: Difficult Swallowing, Ear Discharge, Ear Pain, Gingival Bleeding, Hearing Loss, Ringing in Ears Cardiovascular: denies: Chest Pain, Edema, Palpitations Respiratory: denies: Cough, SOB, SOB on Exertion, Wheezing Gastrointestinal: reports: Abdominal Pain, Nausea, Vomiting, Vomiting Blood. denies: Constipation, Diarrhea, Rectal Bleeding Genitourinary: reports: Menses. denies: Burning, Discharge, Flank Pain Musculoskeletal: denies: Back Pain, Joint Pain Neurological: denies: Change in LOC, Confusion, Seizure, Syncope, Tremors Physical Examination Vital Signs: Vital Signs Temperature 97.7 F 06/13/18 09:21 Pulse Rate 89 06/13/18 16:43 Respiratory Rate 18 06/13/18 09:21 Blood Pressure 133/96 06/13/18 16:43 O2 Sat by Pulse Oximetry (%) 98 06/13/18 09:21 Constitutional: Yes: Obese. No: Pallor Eyes: Yes: Conjunctiva Clear, EOM Intact, PERRL. No: Sclera Icterus HENT: No: Nasal Congestion Neck: Yes: Supple Cardiovascular: Yes: S1, S2 Respiratory: Yes: CTA Bilaterally Gastrointestinal: Yes: Abdomen, Obese, Hypoactive Bowel Sounds, Tenderness, Epigastrium (mild) ...Rectal Exam: Yes: Deferred Renal/: Yes: Vaginal Bleeding. No: CVA Tenderness - Left, CVA Tenderness - Right Musculoskeletal: No: Back Pain Extremities: Yes: WNL. No: Calf Tenderness, Pallor Edema: No Peripheral Pulses WNL: Yes Integumentary: No: Bruising Neurological: Yes: Alert, Oriented. No: Confusion, Facial Droop, Lethargy, Numbness, Paresthesia, Seizure, Tingling, Tremors ...Motor Strength: WNL Psychiatric: Yes: Alert, Oriented Labs: CBC, BMP 06/13/18 10:10 Imaging - Results Cat Scan: Report Reviewed Assessment/Plan Pt is a 32 yo F with hx of fibroids and diverticulitis presenting with nausea and vomiting x 2days. Pt reports nausea and vomiting starting suddenly yesterday. #Persistent nausea and vomiting Unclear etiology at this time- not likely infectious or vestibular Unclear if there is gastroparesis HCG-ve Utox pending HgbA1c pending Received multiple medications in ED EKG- to assess for QTC -NSR-91, Nl [place], no otis/std, QTC-479 Cont protonix 40mg iv daily Cont iv metoclopramide 10mg Q6H PRN Add benadryl 12.5mg Q6H NS@100 Prior C/section 2004- not likely obstructed, last BM this am CBC #Probable hematemesis Per ED staff- vomit was initially reddish then cleared Could be as a result of a transient tear with the retching Unclear if pt is on NSAID at home for menstrual cramps, could be related to gastritis Avoid NSAIDS Cont protonix iv 40mg daily GI- consulted Repeat CBC #Hx of fibroids Pt reports significant cramps requiring pain meds CTAP- imaging not contributory H/H stable at this time Cont to monitor CBC Hx of diverticulitis Mx conservatively in past for microperf No diverticulitis shown on imaging #FEN Cont NS @100 Monitor lytes, replete as needed NPO for now #PPx Protonix Hold chemical for dvt in setting of probable GI bleed #Dispo Med surg Obs Visit type - Emergency Visit Emergency Visit: Yes ED Registration Date: 06/13/18 Care time: The patient presented to the Emergency Department on the above date and was hospitalized for further evaluation of their emergent condition. - New Patient This patient is new to me today: Yes Date on this admission: 06/13/18 - Critical Care Critical Care patient: No
[2018-06-13] MEDS: SODIUM CHLORIDE 1,000 ML IV SCH (17:23)
--- NOTE | 2018-06-13 18:08 | PN ---
Teaching Attending Note Name of Resident: Norma Schuler ATTENDING PHYSICIAN STATEMENT I saw and evaluated the patient. I reviewed the resident's note and discussed the case with the resident. I agree with the resident's findings and plan as documented. SUBJECTIVE: This is a 32 year old woman with a history of uterine fibroids, sigmoid diverticulitis with microperforation (12/07) who comes to the ED today complaining of epigastric pain, nausea, and vomiting that came on suddenly this morning. She denies fever, chills, melena, rectal bleeding, dysuria, hematuria, marijuana use. In the ED, vomitus was noted to be bright red. She had a similar presentation in February 2018 which was thought to be secondary to acute gastroenteritis or food poisoning. She was discharged on Protonix 20 mg daily x 2 weeks. She says she had been doing well until today. In the ED, she was treated with NS x 2 L, Toradol 30 mg IV, Zofran 4 mg IV, Pepcid 20 mg IV, Reglan 10 mg IV, Protonix 40 mg PO, Carafate 1 g PO, Zofran 4 mg IV. She says last time she was treated with Zofran and morphine and improved. OBJECTIVE: Vital Signs Period Temp Pulse Resp BP Sys/Collins Pulse Ox Last 24 Hr 97.7 F 83-89 18 133-134/94-96 98 HEART: S1S2, RRR LUNGS: Clear ABDOMEN: Obese, soft, non-distended, (+) epigastric tenderness, normal BS EXTREMITIES: No edema Laboratory Tests 06/13/18 06/13/18 06/13/18 10:10 10:10 11:15 WBC 11.3 H RBC 4.79 Hgb 13.8 Hct 41.2 MCV 86.1 MCH 28.8 MCHC 33.5 RDW 13.9 Plt Count 262 MPV 7.3 L Absolute Neuts (auto) 8.8 H Neutrophils % 78.3 D Lymphocytes % 14.5 D Monocytes % 5.9 Eosinophils % 0.8 Basophils % 0.5 Nucleated RBC % 0 Sodium 140 Potassium 3.8 Chloride 105 Carbon Dioxide 27 Anion Gap 7 L BUN 11 Creatinine 0.7 Creat Clearance w eGFR 96.37 Random Glucose 124 H Calcium 9.0 Total Bilirubin 0.8 AST 17 ALT 23 Alkaline Phosphatase 66 Total Protein 7.7 Albumin 4.1 Lipase 127 Serum , Qual Urine Color [place] Urine Appearance Turbid Urine pH 5.0 Ur Specific [place] 1.036 H Urine Protein 2+ H Urine Glucose (UA) Negative Urine Ketones Trace H Urine Blood 3+ H Urine Nitrite Negative Urine Bilirubin Negative Urine Urobilinogen 1.0 Ur Leukocyte Esterase 1+ H Urine WBC (Auto) 32 Urine RBC (Auto) 767 Urine Casts (Auto) 3 U Epithel Cells (Auto) 6.1 Urine Bacteria (Auto) 92.1 06/13/18 11:33 WBC RBC Hgb Hct MCV MCH MCHC RDW Plt Count MPV Absolute Neuts (auto) Neutrophils % Lymphocytes % Monocytes % Eosinophils % Basophils % Nucleated RBC % Sodium Potassium Chloride Carbon Dioxide Anion Gap BUN Creatinine Creat Clearance w eGFR Random Glucose Calcium Total Bilirubin AST ALT Alkaline Phosphatase Total Protein Albumin Lipase Serum , Qual Negative Urine Color Urine Appearance Urine pH Ur Specific [place] Urine Protein Urine Glucose (UA) Urine Ketones Urine Blood Urine Nitrite Urine Bilirubin Urine Urobilinogen Ur Leukocyte Esterase Urine WBC (Auto) Urine RBC (Auto) Urine Casts (Auto) U Epithel Cells (Auto) Urine Bacteria (Auto) Home Medications Medication Instructions Recorded NK [No Known Home Medication] 06/13/18 ASSESSMENT AND PLAN: This is a 32 year old woman with a history of uterine fibroids, sigmoid diverticulitis with microperforation who presented to the ED with sudden onset of epigastric pain, nausea, and vomiting. 1. Epigastric abdominal pain with nausea and vomiting - Doubt UGI bleed - bloody emesis likely secondary to Preethi Jade tear from retching/vomiting - CT shows no evidence of enteritis - Will treat for gastritis - NPO, IV fluid, Protonix IV, Zofran IV - Avoid NSAIDs - Check urine drug screen, HbA1c - GI consult requested by ED 2. Hematuria - Patient reports she is currently having her menses and has no symptoms of UTI
[2018-06-13] MEDS: METOCLOPRAMIDE HCL INJECTION 10 MG/2 ML VIAL IVPUSH PRN (18:18)
[2018-06-13 18:53] LABS: COCAINE, UR NEGATIVE ng/ml (CUTOFF=300); METHADONE, UR NEGATIVE ng/ml (CUTOFF=300); OPIATES, URI NEGATIVE ng/ml (CUTOFF=300); PHENCYCLIDINE,URINE NEGATIVE ng/ml (CUTOFF=25); URINE AMPHETAMINES NEGATIVE ng/ml (CUTOFF=500); URINE BARBITURATES NEGATIVE ng/ml (CUTOFF=200); URINE BENZODIAZEPINES NEGATIVE ng/ml (CUTOFF=200)
[2018-06-13 21:10] VITALS: BMI 42.8
[2018-06-14] MEDS: METOCLOPRAMIDE HCL INJECTION 10 MG/2 ML VIAL IVPUSH PRN (03:21)
[2018-06-14 07:13] LABS: HEMATOCRIT 35.1 % (32.4-45.2); MCHC 34.2 g/dl (32.0-36.0); MEAN CELL VOLUME 84.8 fl (80-96); MEAN PLT VOLUME 7.3 fl (7.5-11.1); PLATELET COUNT 229 K/MM3 (134-434); RBC 4.14 M/mm3 (3.60-5.2); RDW 14.1 % (11.6-15.6); WHITE BLOOD COUNT 9.2 K/mm3 (4.0-10.0)
[2018-06-14 07:17] LABS: ALBUMIN 3.1 g/dl (3.4-5.0); ALK PHOS 44 U/L (45-117); ANION GAP 6 MMOL/L (8-16); BILIRUBIN,TOTAL 0.7 mg/dL (0.2-1); BLOOD UREA NITROGEN 6 mg/dL (7-18); CALCIUM 7.9 mg/dL (8.5-10.1); CHLORIDE 109 mmol/L (98-107); CO2 25 mmol/L (21-32); CREATININE 0.5 mg/dL (0.55-1.3); GLUCOSE,RANDOM 103 mg/dL (74-106); MAGNESIUM 2.1 mg/dL (1.8-2.4); PHOSPHOROUS 2.3 mg/dL (2.5-4.9); POTASSIUM 3.4 mmol/L (3.5-5.1); SGOT/AST 14 U/L (15-37); SGPT/ALT 20 U/L (13-61); SODIUM 140 mmol/L (136-145)
[2018-06-14 07:27] LABS: INR 1.08 (0.83-1.09); PROTHROMBIN TIME (PATIENT) 12.8 SEC (9.7-13.0)
[2018-06-14] MEDS: SODIUM CHLORIDE 1,000 ML IV SCH (08:00)
[2018-06-14] MEDS ORDERED: PANTOPRAZOLE SODIUM 40 MG VIAL IVPUSH SCH (10:00)
[2018-06-14] MEDS ORDERED: POTASSIUM CHLORIDE TABS 20 MEQ TABLET.ER (FP) PO ONE (10:37)
--- NOTE | 2018-06-14 12:07 | EKG ---
Test Reason : Blood Pressure : / mmHG Vent. Rate : 085 BPM Atrial Rate : 085 BPM P-R Int : 156 ms QRS Dur : 086 ms QT Int : 376 ms P-R-T Axes : 063 054 013 degrees QTc Int : 447 ms NORMAL SINUS RHYTHM NORMAL ECG WHEN COMPARED WITH ECG OF 13-JUN-2018 17:33, NO SIGNIFICANT CHANGE WAS FOUND Confirmed by TREVOR JACOME MD ([id number]) on 06/14/2018 12:06:36 PM Referred By: Confirmed By:TREVOR JACOME MD
--- NOTE | 2018-06-14 12:07 | EKG ---
Test Reason : Blood Pressure : / mmHG Vent. Rate : 091 BPM Atrial Rate : 091 BPM P-R Int : 156 ms QRS Dur : 084 ms QT Int : 390 ms P-R-T Axes : 064 067 038 degrees QTc Int : 479 ms NORMAL SINUS RHYTHM NORMAL ECG WHEN COMPARED WITH ECG OF 13-JAN-2015 10:01, NO SIGNIFICANT CHANGE WAS FOUND Confirmed by TREVOR JACOME MD ([id number]) on 06/14/2018 12:07:03 PM Referred By: Confirmed By:TREVOR JACOME MD
[2018-06-14] MEDS ORDERED: ACETAMINOPHEN 325 MG TABLET (FP) PO PRN (12:19)
--- NOTE | 2018-06-14 12:59 | PN ---
Teaching Attending Note Name of Resident: Luz Pickett ATTENDING PHYSICIAN STATEMENT I saw and evaluated the patient. I reviewed the resident's note and discussed the case with the resident. I agree with the resident's findings and plan as documented. SUBJECTIVE: Patient is feeling much better and tolerating clear liquids. OBJECTIVE: Vital Signs Period Temp Pulse Resp BP Sys/Collins Pulse Ox Last 24 Hr 98 F-98.4 F 79-93 12-18 128-136/57-96 98-98 HEART: S1S2, RRR LUNGS: Clear ABDOMEN: Obese, soft, non-tender, non-distended, normal BS EXTREMITIES: No edema Laboratory Results - last 24 hr 06/13/18 06/14/18 06/14/18 17:04 06:00 06:00 WBC 9.2 RBC 4.14 Hgb 12.0 Hct 35.1 MCV 84.8 MCH 29.0 MCHC 34.2 RDW 14.1 Plt Count 229 MPV 7.3 L PT with INR INR Sodium Potassium Chloride Carbon Dioxide Anion Gap BUN Creatinine Creat Clearance w eGFR Random Glucose Hemoglobin A1c % 5.7 Calcium Phosphorus Magnesium Total Bilirubin AST ALT Alkaline Phosphatase Total Protein Albumin Opiates Screen Negative Methadone Screen Negative Barbiturate Screen Negative Phencyclidine Screen Negative Ur Amphetamines Screen Negative MDMA (Ecstasy) Screen Negative Benzodiazepines Screen Negative Cocaine Screen Negative U Marijuana (THC) Screen Positive A* 06/14/18 06/14/18 06:00 06:00 WBC RBC Hgb Hct MCV MCH MCHC RDW Plt Count MPV PT with INR 12.80 INR 1.08 Sodium 140 Potassium 3.4 L Chloride 109 H Carbon Dioxide 25 Anion Gap 6 L BUN 6 L Creatinine 0.5 L Creat Clearance w eGFR 142.09 Random Glucose 103 Hemoglobin A1c % Calcium 7.9 L Phosphorus 2.3 L Magnesium 2.1 Total Bilirubin 0.7 AST 14 L ALT 20 Alkaline Phosphatase 44 L Total Protein 6.0 L Albumin 3.1 L Opiates Screen Methadone Screen Barbiturate Screen Phencyclidine Screen Ur Amphetamines Screen MDMA (Ecstasy) Screen Benzodiazepines Screen Cocaine Screen U Marijuana (THC) Screen Current Medications Generic Name Dose Route Start Last Admin Trade Name Freq PRN Reason Stop Dose Admin Acetaminophen 650 mg 06/14/18 12:19 06/14/18 12:28 Tylenol - PO 650 mg Q6H PRN Administration Fever Or Pain Diphenhydramine HCl 12.5 mg 06/13/18 17:11 06/14/18 03:21 Benadryl Injection - IVPUSH 12.5 mg Q6H PRN Administration NAUSEA AND/OR VOMITING Sodium Chloride 1,000 mls @ 100 mls/hr 06/13/18 17:15 06/14/18 08:00 Normal Saline - IV 100 mls/hr ASDIR RUPA Administration Metoclopramide HCl 10 mg 06/13/18 17:10 06/14/18 03:21 Reglan Injection - IVPUSH 10 mg Q6H PRN Administration NAUSEA AND/OR VOMITING Pantoprazole Sodium 40 mg 06/14/18 10:00 06/14/18 09:52 Protonix Iv IVPUSH 40 mg DAILY RUPA Administration ASSESSMENT AND PLAN: This is a 32 year old woman with a history of uterine fibroids, sigmoid diverticulitis with microperforation who presented to the ED with sudden onset of epigastric pain, nausea, and vomiting. 1. Epigastric abdominal pain with nausea and vomiting - Doubt UGI bleed - bloody emesis likely secondary to Preethi Jade tear from retching/vomiting - CT shows no evidence of enteritis - ? marijuana induced, gastritis - Continue Protonix - Avoid NSAIDs - Will need EGD - likely can be done as outpatient; will await GI evaluation - If no plan for procedure this admission, will advance diet and if tolerated , she can be discharged with outpatient GI follow-up 2. Hematuria - Patient reports she is currently having her menses and has no symptoms of UTI
--- NOTE | 2018-06-14 14:33 | CONSULT ---
Consultation: ATTENDING PHYSICIAN STATEMENT I saw and evaluated the patient. I reviewed the resident's note and discussed the case with the resident. I agree with the resident's findings and plan as documented. SUBJECTIVE: 32F admitted for evaluation of vomiting followed by vomiting of red blood then coffee grounds. Similar episode in the past. + Marijuana use and states that prior to the onset of her symptoms she drank a red bull enerhy drink. Curently denies abdominal pain, states being hungry and wants solid food. Was advised previously and as outpatient to obtain GI follow-up (I do not patricipate in her insurance plan. She was advised by my office that she call her insurance provider to find a participating bench [employer]). OBJECTIVE: On exam: Anicteric Hrt RRR, no murmurs Lungs: CTA B/L Abd: non distended, non-tender + BS +pelvic surgical scar Ext: No LE edema ASSESSMENT: Resolved N/V, epigastric pain. Scant hematemesis likely to esophageal irritation / raymond domingo precipitated by vomiting episodes. Normal BUN and stable H/H favor against significant upper GI bleed. PLAN: Advance diet as tolerated Avoid NSAIDs for now Pantoprazole 20mg daily for 30 days Correction of lytes per primary team Advised complete cessation of marijuana: ? component of cannabis induced hyperemesis. Evaluation of abnormal UA per primary team Will need GI follow-up as an outpatient to arrange EGD: advised she call her insurance company and find a provider that participates in her plan <Manuel Crawford - Last Filed: 06/14/18 15:44> Consultation: GI consult REQUESTING PROVIDER: Luis Fernando MANRIQUE CONSULT REQUEST: We have been asked to medically evaluate this patient for ( hematemesis , vomiting ). HISTORY OF PRESENT ILLNESS: 32 year old female with pmhx of fibroid , diverticulosis and marijuana abuse presented to the ED with 2 days history of sever vominting , associate with dark blood x1 , improved with IV fluids and anti nausea meds. pt at my present denies any ever , chills, N/V .last vomit last night at 2 am , she tolerated clear liquids this AM and asking to go home pt reports last use of Marijuana this Monday , had similar episode last November and could not follow up as out pt due to insurance coverage. pt denies any chest pain , sob , abdominal pain , has regular BM , no D/C no joint pain. REVIEW OF SYSTEMS: CONSTITUTIONAL: Absent: fever, chills, diaphoresis, generalized weakness, malaise, loss of appetite, weight change HEENT: Absent: rhinorrhea, nasal congestion, throat pain, throat swelling, difficulty swallowing, mouth swelling, CARDIOVASCULAR: Absent: chest pain, syncope, palpitations, irregular heart rate, lightheadedness , peripheral edema RESPIRATORY: Absent: cough, shortness of breath, dyspnea with exertion, orthopnea, wheezing, stridor, hemoptysis onc in day of admission GASTROINTESTINAL: Absent: abdominal pain, abdominal distension, nausea, vomiting, diarrhea, constipation, melena, hematochezia GENITOURINARY: ENDOCRINE: Absent: unexplained weight gain, unexplained weight loss, heat intolerance, cold intolerance PHYSICAL EXAMINATION Vital Signs - 24 hr 06/13/18 06/13/18 06/13/18 16:43 19:07 21:00 Temperature Pulse Rate Pulse Rate [ 89 92 H Apical] Respiratory 12 12 Rate Blood Pressure Blood Pressure 133/96 132/78 [Left Arm] O2 Sat by Pulse 98 98 Oximetry (%) 06/13/18 06/14/18 06/14/18 23:00 02:00 06:00 Temperature 98.3 F 98 F 98.4 F Pulse Rate 93 H 79 85 Pulse Rate [ Apical] Respiratory 18 18 18 Rate Blood Pressure 131/57 L 128/74 136/70 Blood Pressure [Left Arm] O2 Sat by Pulse Oximetry (%) 06/14/18 13:45 Temperature 98.1 F Pulse Rate 83 Pulse Rate [ Apical] Respiratory 16 Rate Blood Pressure 118/71 Blood Pressure [Left Arm] O2 Sat by Pulse Oximetry (%) GENERAL: Awake, alert, and fully oriented, in no acute distress. HEAD: Normal with no signs of trauma. ENT: Moist mucous membranes. LUNGS: Breath sounds equal, clear to auscultation bilaterally. HEART: Regular rate and rhythm, normal S1 and S2 without murmur, rub or gallop. ABDOMEN: obese , Soft, nontender, not distended, normoactive bowel sounds, LOWER EXTREMITIES: 2+ pulses, warm, well-perfused. No calf tenderness. No peripheral edema. Laboratory Results - last 24 hr 06/13/18 06/14/18 06/14/18 17:04 06:00 06:00 WBC 9.2 RBC 4.14 Hgb 12.0 Hct 35.1 MCV 84.8 MCH 29.0 MCHC 34.2 RDW 14.1 Plt Count 229 MPV 7.3 L PT with INR INR Sodium Potassium Chloride Carbon Dioxide Anion Gap BUN Creatinine Creat Clearance w eGFR Random Glucose Hemoglobin A1c % 5.7 Calcium Phosphorus Magnesium Total Bilirubin AST ALT Alkaline Phosphatase Total Protein Albumin Opiates Screen Negative Methadone Screen Negative Barbiturate Screen Negative Phencyclidine Screen Negative Ur Amphetamines Screen Negative MDMA (Ecstasy) Screen Negative Benzodiazepines Screen Negative Cocaine Screen Negative U Marijuana (THC) Screen Positive A* 06/14/18 06/14/18 06:00 06:00 WBC RBC Hgb Hct MCV MCH MCHC RDW Plt Count MPV PT with INR 12.80 INR 1.08 Sodium 140 Potassium 3.4 L Chloride 109 H Carbon Dioxide 25 Anion Gap 6 L BUN 6 L Creatinine 0.5 L Creat Clearance w eGFR 142.09 Random Glucose 103 Hemoglobin A1c % Calcium 7.9 L Phosphorus 2.3 L Magnesium 2.1 Total Bilirubin 0.7 AST 14 L ALT 20 Alkaline Phosphatase 44 L Total Protein 6.0 L Albumin 3.1 L Opiates Screen Methadone Screen Barbiturate Screen Phencyclidine Screen Ur Amphetamines Screen MDMA (Ecstasy) Screen Benzodiazepines Screen Cocaine Screen U Marijuana (THC) Screen Active Medications Generic Name Dose Route Start Last Admin Trade Name Freq PRN Reason Stop Dose Admin Acetaminophen 650 mg 06/14/18 12:19 06/14/18 12:28 Tylenol - PO 650 mg Q6H PRN Administration Fever Or Pain Diphenhydramine HCl 12.5 mg 06/13/18 17:11 06/14/18 03:21 Benadryl Injection - IVPUSH 12.5 mg Q6H PRN Administration NAUSEA AND/OR VOMITING Sodium Chloride 1,000 mls @ 100 mls/hr 06/13/18 17:15 06/14/18 08:00 Normal Saline - IV 100 mls/hr ASDIR RUPA Administration Metoclopramide HCl 10 mg 06/13/18 17:10 06/14/18 03:21 Reglan Injection - IVPUSH 10 mg Q6H PRN Administration NAUSEA AND/OR VOMITING Pantoprazole Sodium 40 mg 06/14/18 10:00 06/14/18 09:52 Protonix Iv IVPUSH 40 mg DAILY RUPA Administration CBC, BMP 06/14/18 06:00 06/14/18 06:00 ASSESSMENT/PLAN: 32 year old female with pmhx of Fibroid and diverticulosis , marijuana abuse presented to the hospital with 2 days history of vomiting and nausea # Abdominal pain With N/V X 2days * likely due to marijuana abuse vs Gastrititis * Advance diet as tolerated * IV fluids * Zofran PRN * Replnishe electrolytes * PPI PO 20 mg Daily for 2 weeks * Drug abstinence * CT A/P with no diverticulosis * clear to DC from GI stand point if tolerate diet * follow up with GI as out pt depends on her insurance coverage # Hematemesis slight likely due to sever vomiting , no actibe bleeding . follow up as out pt Rest per primary team . Dispo: We will continue to follow the patient. Thank you for this consultative opportunity. <Jaylan Valdez - Last Filed: 06/14/18 15:57> Visit type - Emergency Visit Emergency Visit: Yes ED Registration Date: 06/13/18 Care time: The patient presented to the Emergency Department on the above date and was hospitalized for further evaluation of their emergent condition. - New Patient This patient is new to me today: Yes Date on this admission: 06/14/18 - Critical Care Critical Care patient: No <Jaylan Valdez - Last Filed: 06/14/18 15:57>
[2018-06-14] MEDS ORDERED: NAPH,MB-DB/K PH,MBDB POWDER PACKET PO ONE (15:17)
--- NOTE | 2018-06-14 16:16 | PN ---
Teaching Attending Note Name of Resident: Jaylan Valdez ATTENDING PHYSICIAN STATEMENT I saw and evaluated the patient. I reviewed the resident's note and discussed the case with the resident. I agree with the resident's findings and plan as documented. SUBJECTIVE: 32F admitted for evaluation of vomiting followed by vomiting of red blood then coffee grounds. Similar episode in the past. + Marijuana use and states that prior to the onset of her symptoms she drank a red bull enerhy drink. Curently denies abdominal pain, states being hungry and wants solid food. Was advised previously and as outpatient to obtain GI follow-up (I do not patricipate in her insurance plan. She was advised by my office that she call her insurance provider to find a participating regional liaison). OBJECTIVE: On exam: Anicteric Hrt RRR, no murmurs Lungs: CTA B/L Abd: non distended, non-tender + BS +pelvic surgical scar Ext: No LE edema ASSESSMENT: Resolved N/V, epigastric pain. Scant hematemesis likely to esophageal irritation / raymond domingo precipitated by vomiting episodes. Normal BUN and stable H/H favor against significant upper GI bleed. PLAN: Advance diet as tolerated Avoid NSAIDs for now Pantoprazole 20mg daily for 30 days Correction of lytes per primary team Advised complete cessation of marijuana: ? component of cannabis induced hyperemesis. Evaluation of abnormal UA per primary team Will need GI follow-up as an outpatient to arrange EGD: advised she call her insurance company and find a provider that participates in her plan
[2018-06-14 17:54] LABS: EPI CELLS 5.9 /HPF (0-5/HPF); PH,URINE >= 9.0 (5.0-8.0); URINE APPEARANCE CLOUDY; URINE BACTERIA 122.8 /hpf (NEGATIVE); URINE BILIRUBIN NEGATIVE (NEGATIVE); URINE CASTS 0 /lpf (0-8); URINE COLOR RED; URINE GLUCOSE (UA) NEGATIVE (NEGATIVE); URINE KETONE NEGATIVE (NEGATIVE); URINE LEUK ESTERASE TRACE (NEGATIVE); URINE NITRITE NEGATIVE (NEGATIVE); URINE PROTEIN TRACE (NEGATIVE); URINE RBC 768 /hpf (0-4); URINE WBC 4 /hpf (0-5)
[2018-06-14 18:08] VITALS: BP 134/72; PULSE 63; TEMP 97.9
--- NOTE | 2018-06-14 18:27 | DS ---
Physical Exam: SUBJECTIVE: Patient seen and examined at bedside this morning. No acute events overnight. Patient reported 1 episode of hematemesis about 1 tsp, but otherwise has had no episodes of vomiting. Patient denies fever, chills, headache, dizziness, chest pain, SOB, abdominal pain, diarrhea, melena, urinary symptoms. During dinner time, patient was able to tolerate regular diet. OBJECTIVE: Vital Signs Temperature 97.9 F 06/14/18 18:06 Pulse Rate 63 06/14/18 18:06 Respiratory Rate 18 06/14/18 18:06 Blood Pressure 134/72 06/14/18 18:06 O2 Sat by Pulse Oximetry (%) 98 06/14/18 09:00 PHYSICAL EXAM GENERAL: The patient is awake, alert, and fully oriented, in no acute distress. HEAD: Normal with no signs of trauma. EYES: PERRLA, EOMI, sclera anicteric, conjunctiva clear. ENT: oropharynx clear without exudates, moist mucous membranes. NECK: Trachea midline, full range of motion, supple. LUNGS: Breath sounds equal, clear to auscultation bilaterally. HEART: Regular rate and rhythm, S1, S2 without murmur, rub or gallop. ABDOMEN: Soft, nontender, nondistended, normoactive bowel sounds. EXTREMITIES: 2+ pulses, warm, well-perfused, no edema. NEUROLOGICAL: Cranial nerves II through XII grossly intact. Normal speech, normal gait. PSYCH: Normal mood, normal affect. SKIN: Warm, dry, normal turgor, no rashes or lesions noted. LABS Laboratory Results - last 24 hr 06/13/18 06/14/18 06/14/18 17:04 06:00 06:00 WBC 9.2 RBC 4.14 Hgb 12.0 Hct 35.1 MCV 84.8 MCH 29.0 MCHC 34.2 RDW 14.1 Plt Count 229 MPV 7.3 L PT with INR INR Sodium Potassium Chloride Carbon Dioxide Anion Gap BUN Creatinine Creat Clearance w eGFR Random Glucose Hemoglobin A1c % 5.7 Calcium Phosphorus Magnesium Total Bilirubin AST ALT Alkaline Phosphatase Total Protein Albumin Urine Color Urine Appearance Urine pH Ur Specific [place] Urine Protein Urine Glucose (UA) Urine Ketones Urine Blood Urine Nitrite Urine Bilirubin Urine Urobilinogen Ur Leukocyte Esterase Urine WBC (Auto) Urine RBC (Auto) Urine Casts (Auto) U Epithel Cells (Auto) Urine Bacteria (Auto) Opiates Screen Negative Methadone Screen Negative Barbiturate Screen Negative Phencyclidine Screen Negative Ur Amphetamines Screen Negative MDMA (Ecstasy) Screen Negative Benzodiazepines Screen Negative Cocaine Screen Negative U Marijuana (THC) Screen Positive A* 06/14/18 06/14/18 06/14/18 06:00 06:00 16:25 WBC RBC Hgb Hct MCV MCH MCHC RDW Plt Count MPV PT with INR 12.80 INR 1.08 Sodium 140 Potassium 3.4 L Chloride 109 H Carbon Dioxide 25 Anion Gap 6 L BUN 6 L Creatinine 0.5 L Creat Clearance w eGFR 142.09 Random Glucose 103 Hemoglobin A1c % Calcium 7.9 L Phosphorus 2.3 L Magnesium 2.1 Total Bilirubin 0.7 AST 14 L ALT 20 Alkaline Phosphatase 44 L Total Protein 6.0 L Albumin 3.1 L Urine Color Red Urine Appearance Cloudy Urine pH >= 9.0 H D Ur Specific [place] 1.008 L Urine Protein Trace Urine Glucose (UA) Negative Urine Ketones Negative Urine Blood 3+ H Urine Nitrite Negative Urine Bilirubin Negative Urine Urobilinogen 1.0 Ur Leukocyte Esterase Trace Urine WBC (Auto) 4 Urine RBC (Auto) 768 Urine Casts (Auto) 0 U Epithel Cells (Auto) 5.9 Urine Bacteria (Auto) 122.8 Opiates Screen Methadone Screen Barbiturate Screen Phencyclidine Screen Ur Amphetamines Screen MDMA (Ecstasy) Screen Benzodiazepines Screen Cocaine Screen U Marijuana (THC) Screen HOSPITAL COURSE: Date of Admission:06/13/18 Date of Discharge: 06/14/18 Patient is a 32 year old female with past medical history of fibroids and diverticulitis presented to the ED due to intractable nausea and vomiting for 2 days. Patient was initially put on NPO and was started on IV Protonix and Reglan. GI was consulted and recommended outpatient EGD. Patient remained stable throughout her hospital stay and has had only 1 episode of vomiting, that occurred during the night of her admission. Patient was able to tolerate regular diet without nausea or vomiting. Patient was discharged with instructions to follow up with PCP and GI. Minutes to complete discharge: 37 Discharge Summary Reason For Visit: EPIGASTRIC PAIN/ NAUSEA AND VOMITTING Condition: Improved - Instructions Diet, Activity, Other Instructions: Your visit You were admitted to the hospital because you have nausea and vomiting. You were given medications which improved your symptoms. You were evaluated by the antique [employer] maintenance worker and recommended follow up as outpatient for further work-up, including an EGD. Please call your insurance company and find a provider that participates in your plan. Care Please avoid taking NSAIDs such as Ibuprofen or Aleve. Please avoid taking substances such as marijuana, as this can cause vomiting. Medications Please take the following medication as prescribed. 1. Protonix 20mg once a day for 30 days. Follow-up -Please follow up with your primary care physician within 1 week. Please call the resident medical clinic at [phone] to schedule an appointment. -Please follow up with gastroenterology. Call your insurance company to find a antique auto [employer] maintenance worker that participates in your plan. Additional info Call 911 or go the ED if with any worsening fever, chills, headache, dizziness, nausea, vomiting, chest pain, shortness of breath, belly pain, bloody stools or any new concerns noted. [place]: [facility] [place] [facility] [place] Group] - 1 Week Disposition: HOME - Home Medications Comprehensive Discharge Medication List: Ambulatory Orders Pantoprazole Sodium [Protonix -] 20 mg PO DAILY #30 tablet.ec 06/14/18 This patient is new to me today: Yes Date on this admission: 06/14/18 Emergency Visit: Yes ED Registration Date: 06/13/18 Care time: The patient presented to the Emergency Department on the above date and was hospitalized for further evaluation of their emergent condition. Critical Care patient: No - Discharge Referral Referred to [facility] No
== END 2018-06-14 18:50 | disposition home or self-care (01) ==
LOC: JER 09:19 → JERBED 17:44 → J5S 20:21
PROVIDERS: ADMIT Internal Medicine; ATTEND Internal Medicine
PROC: 3E0333Z Introduction of Anti-inflammatory into Peripheral Vein, Percutaneous Approach (ICD-10-PCS; principal; 2018-06-13)
PROC: 3E033GC Introduction of Other Therapeutic Substance into Peripheral Vein, Percutaneous Approach (ICD-10-PCS; 2018-06-13)
PROC: 3E0337Z Introduction of Electrolytic and Water Balance Substance into Peripheral Vein, Percutaneous Approach (ICD-10-PCS; 2018-06-13)
DX: R11.2 Nausea with vomiting, unspecified (principal); R10.13 Epigastric pain; R31.9 Hematuria, unspecified
CPT/HCPCS: 36415; 74177-TC; 80053; 80307; 81003; 83036; 83690; 83735; 84100; 84703; 85025; 85027; 85610; 87086; 93005; 93010; 99285-25; G0378; J7030

== ENCOUNTER 2019-03-12 20:47 | Emergency (ER) | payer OTHER ==
--- NOTE | 2019-03-12 21:34 | PDOC ---
Rapid Medical Evaluation Time Seen by Provider: 03/12/19 21:31 Medical Evaluation: Allergies Allergy/AdvReac Type Severity Reaction Status Date / Time No Known Allergies Allergy Verified 06/13/18 09:23 03/12/19 21:31 This patient had brief evaluation by me cc: abdominal pain today HPI: Patient reports history of diverticulitis states abdominal pain with nausea and vomiting today States she has been vomiting until she started vomiting blood PE: vomiting and crying in triage orders: iv fluids, saline loc, antiemetic, labs orders This patient will proceed to main ed for further evaluation Discharge Disposition - Diagnosis Abdominal pain - Referrals - Patient Instructions - Post Discharge Activity
[2019-03-12] MEDS ORDERED: ONDANSETRON 4 MG/2 ML VIAL IVPB ONE (21:35)
[2019-03-12 21:40] VITALS: TEMP 98; BMI 32.1
[2019-03-12] MEDS ORDERED: SODIUM CHLORIDE 1,000 ML IV SCH (21:45)
[2019-03-12 22:11] LABS: BASO % 0.5 % (0-2.0); EOS % 1.3 % (0-4.5); HEMOGLOBIN 13.2 GM/dL (10.7-15.3); LYMPH % 20.7 % (8-40); MCH 28.2 pg (25.7-33.7); MCHC 33.1 g/dl (32.0-36.0); MEAN CELL VOLUME 85.3 fl (80-96); MEAN PLT VOLUME 7.3 fl (7.5-11.1); MONO % 7.6 % (3.8-10.2); NEUT % 69.9 % (42.8-82.8); PLATELET COUNT 276 K/MM3 (134-434); RBC 4.69 M/mm3 (3.60-5.2); RDW 13.7 % (11.6-15.6); WHITE BLOOD COUNT 8.5 K/mm3 (4.0-10.0)
[2019-03-12] MEDS ORDERED: ACETAMINOPHEN 1000 MG/100 ML VIAL (NON FORMULARY) IVPB ONE (22:14)
--- NOTE | 2019-03-12 22:15 | PDOC ---
History of Present Illness - General Chief Complaint: Pain Stated Complaint: ABD PAIN Time Seen by Provider: 03/12/19 21:31 History Source: Patient, Old Records Exam Limitations: No Limitations - History of Present Illness Initial Comments: HPI: 33 y/o female presenting to [facility] ER complaining of multiple episodes of vomiting with some blood. Denies only throwing up blood but believes it was more than just streaks. Estimates 6 episodes of emesis since this afternoon. Diffuse abdominal cramping that has resolved at time of interview. Normal BM just prior to arrival. No recent dark stools or hematochezia. Denies fevers, chills, chest pain, or SOB. No sick contacts, recent travel, or abx usage. All symptoms resolved prior to initial interview. Has not followed up wit GI clinic regarding diverticulitis. Never had an EGD or colonoscopy. Social Hx: - EtoH: Denies - Tobacco: former, quit 2 years ago - Street drugs: Occasional marijuana, last two days ago OBGYN Hx: - LMP 10 Feb 2019 - H/o STDs Denies Medical Hx: - Uterine fibroids - Diverticulitis Review of Systems: In addition to that documented in the HPI above, the additional ROS was obtained : Constitutional- Denies fevers or chills ENMT- Denies sore throat CV- Denies chest pain Resp- Denies SOB GI- Per HPI - Denies dysuria, hematuria, or urinary frequency Physical Examination: Vital signs and nursing notes reviewed. Constitutional- Well-developed, well-nourished adult female in no acute distress or obvious discomfort. Found semi-fowlers on hospital stretcher. Answered all questions appropriately and completely. Head- Normocephalic. No obvious external signs of trauma. Neck- Supple, trachea is midline. Oral- Posterior oropharynx normal - no erythema, exudates, or evidence of bleeding. Cardiovascular / Chest- Regular rate and regular rhythm. No murmur, rubs, clicks , or gallops. Peripheral pulses- radial pulses full. Respiratory- Breathing unlabored. Equal chest rise and fall. Clear to auscultation bilaterally. No stridor, no wheezing, no rhonchi. Gastrointestinal- abdomen is soft, non-tender, non-distended. No hepatosplenomegaly. No pulsatile masses. No overlying skin lesions or obvious signs of trauma. Pt able to transition from supine to fowlers position without obvious discomfort. Neuro- Alert and oriented x4. Moving all four extremities spontaneously. Skin- Warm, dry, and intact. - No R or L CVA tenderness. Psych- Affect- appropriate. Mood- normal. Speech was non-labored, non- pressured. MDM: 33 y/o female presenting with resolved diffuse abdominal pain w/ vomiting. Noted h/o diverticulitis. Afebrile. Vitals unremarkable for hypotension or tachycardia. Physical exam as described above. No acute abdominal signs. Labs and medications ordered by RME prior to my arrival. Low suspicion for diverticulitis, appendicitis, or biliary pathology. Labs reviewed. No clinically significant derangement. 13 Mar 2019 00:29 AM Pt reassessed. Found sleeping comfortable. Easily arousable to voice. Denies further vomiting or abdominal pain. Discussed physical exam findings and laboratory data with pt. Answered all questions. Provided return precautions. pt expressed verbal understanding and agreement with plan to discharge home with outpatient follow up. Provided copies of todays results. Prescribed PRN Zofran and placed GI referral. Lukas Douglass M.D., PGY2 Emergency Medicine Resident Past History - Past Medical History Allergies/Adverse Reactions: Allergies Allergy/AdvReac Type Severity Reaction Status Date / Time No Known Allergies Allergy Verified 03/12/19 21:33 Home Medications: Ambulatory Orders Pantoprazole Sodium [Protonix -] 20 mg PO DAILY #30 tablet.ec 06/14/18 Ondansetron [Zofran Odt -] 4 mg SL TID PRN #10 od.tablet 03/13/19 Asthma: Yes COPD: No CHF: No GI Disorders: Yes (diverticulitis) - Surgical History Abdominal Surgery: Yes - Reproductive History (#): 2 Para: 0 Cervical CA: No Dysfunctional Uterine Bleeding: No Ectopic : No Endometrial CA: No Polycystic Ovaries: No Therapeutic (s) & number: No Tubal Ligation: No Spontaneous : 0 - Immunization History Immunization Up to Date: Yes - Psycho Social/Smoking Cessation Hx Smoking History: Never smoked Have you smoked in the past 12 months: No Number of Cigarettes Smoked Daily: 3 If you are a former smoker, when did you quit?: 07/2013 Information on smoking cessation initiated: No Hx Alcohol Use: No Drug/Substance Use Hx: No Substance Use Type: None *Physical Exam - Vital Signs Last Vital Signs Temp Pulse Resp BP Pulse Ox 98.0 F 97 H 18 148/95 97 03/12/19 21:34 03/12/19 21:34 03/12/19 21:34 03/12/19 21:34 03/12/19 21:34 ED Treatment Course - LABORATORY CBC & Chemistry Diagram: 03/12/19 22:10 03/12/19 21:51 - ADDITIONAL ORDERS Additional order review: 03/12/19 22:10 RBC 4.69 MCV 85.3 MCHC 33.1 RDW 13.7 MPV 7.3 L Neutrophils % 69.9 Lymphocytes % 20.7 D Monocytes % 7.6 Eosinophils % 1.3 Basophils % 0.5 Discharge - Discharge Information Problems reviewed: Yes Clinical Impression/Diagnosis: Abdominal pain Qualifiers: Abdominal location: generalized Qualified Code(s): R10.84 - Generalized abdominal pain Vomiting Qualifiers: Vomiting type: unspecified Vomiting Intractability: non-intractable Nausea presence: unspecified Qualified Code(s): R11.10 - Vomiting, unspecified Condition: Good Disposition: HOME - Admission No - Additional Discharge Information Prescriptions: Ondansetron [Zofran Odt -] 4 mg SL TID PRN #10 od.tablet PRN Reason: Nausea / Vomiting - Follow up/Referral Referrals: Zenia Mitchell [Primary Care Provider] - Jamie Newton MD [Staff Physician] - - Patient Discharge Instructions Patient Printed Discharge Instructions: DI for Vomiting -- Adult, Ondansetron Additional Instructions: You were seen today for vomiting. Your symptoms went away. Your blood work was normal. The cause of your symptoms is unclear but not likely to be life threatening. Please continue to drink fluids (water, Gatorade, etc) to stay hydrated. Mix sugary drinks with water as the sugar can further dehydrate you. You can try and eat a small bland meal (crackers, etc) after you have stopped vomiting for 12 hours. I have sent a prescription for Zofran to your pharmacy. Take as directed on the package insert. Do not take more than the recommended dose. An informational leaflet about the medication is attached. Return to the emergency room if your vomiting becomes much worse and you are no longer able to keep fluids down, if you begin to feel dehydrated, if you develop a fever, pass out, become disoriented, begin vomiting blood, have bloody diarrhea, or you feel like you need additional emergency care. You need to follow up with a GI doctor. I have entered a referral for you to see Dr. Newton. You will need to call to make an appointment. The number is included in this packet. A copy of todays results are attached to this packet. Take it to the appointment so your doctor can review them. Print Language: CZECH - Post Discharge Activity Work/Back to School Note: Back to Work
[2019-03-12] MEDS ORDERED: ACETAMINOPHEN INJECTION 100 ML IVPB ONE (22:24)
[2019-03-12] MEDS ORDERED: ONDANSETRON 4 MG/2 ML VIAL ONE (22:24)
[2019-03-12 22:38] LABS: ALBUMIN 4.2 g/dl (3.4-5.0); BILIRUBIN,TOTAL 0.8 mg/dL (0.2-1); BLOOD UREA NITROGEN 10.9 mg/dL (7-18); CREATININE 0.8 mg/dL (0.55-1.3); POTASSIUM 3.9 mmol/L (3.5-5.1); TOT PROT 7.6 g/dl (6.4-8.2)
--- NOTE | 2019-03-12 23:27 | PDOC ---
Documentation entered by Maris Nassar SCRIBE, acting as scribe for Berenice Canela MD. Berenice Canela MD: This documentation has been prepared by the [employer], SCRIBE, under my direction and personally reviewed by me in its entirety. I confirm that the documentation accurately reflects all work, treatment, procedures, and medical decision making performed by me. Attending Attestation - Resident Resident Name: Lukas Douglass - ED Attending Attestation I have performed the following: I have examined & evaluated the patient, The case was reviewed & discussed with the resident, I agree w/resident's findings & plan, Exceptions are as noted - HPI HPI: 03/12/19 23:04 The patient is a 33 y/o female with a PMH of asthma, fibroids and diverticulitis with a perf, who presents to the ED with nausea and multiple episodes of emesis with slight blood. The patient states she went to work this morning, did not eat all day, when she came back from work she ate and endorsed nausea and vomiting associated with abdominal cramping. Pt states she had a normal BM today. Pt states her LMP was 02/10/19. Pt denies any recent travels, recent sickness/illness. The patient denies chest pain, shortness of breath, headache and dizziness. Denies fever, chills, cough, diarrhea and constipation. Denies dysuria, frequency, urgency and hematuria. Allergies: NKDA - Physicial Exam PE: 03/12/19 23:09 GENERAL: Awake, alert, and fully oriented, in no acute distress NECK: Normal ROM, supple, no lymphadenopathy, JVD, or masses LUNGS: Breath sounds equal, clear to auscultation bilaterally. No wheezes, and no crackles HEART: Regular rate and rhythm, normal S1 and S2, no murmurs, rubs or gallops ABDOMEN: protuberant, Soft, nontender, normoactive bowel sounds. No guarding, no rebound. No masses EXTREMITIES: Normal range of motion, no edema. No clubbing or cyanosis. No cords, erythema, or tenderness NEUROLOGICAL: Cranial nerves II through XII grossly intact. Normal speech, normal gait SKIN: Warm, Dry, normal turgor, no rashes or lesions noted. - Medical Decision Making 03/12/19 23:25 33-year-old female who was well earlier in the day had dinner when she got home and then developed nausea vomiting cramping She currently is pain-free Past medical history diverticulitis Past surgical history section, embolization of her fibroids CBC is unremarkable, no fever no chills Chemistries are all within normal limits with exception of glucose equal to 144 03/12/19 23:26 03/12/19 23:27 Benign abdominal exam, protuberant but no rebound or guarding at this time no focal tenderness 03/13/19 00:28 pt is resting comfortably with no complaints, no pain ,no further vomiting imp nausea and vomiting resolved 03/13/19 00:29
[2019-03-13 00:39] VITALS: PULSE 98
[2019-03-13 00:40] VITALS: BP 118/89
== END 2019-03-13 00:40 | disposition home or self-care (01) ==
LOC: JER 20:47
DX: R10.84 Generalized abdominal pain (principal); R11.10 Vomiting, unspecified; Z87.891 Personal history of nicotine dependence; J45.909 Unspecified asthma, uncomplicated; K57.92 Diverticulitis of intestine, part unspecified, without perforation or abscess without bleeding
CPT/HCPCS: 36415; 80053; 82150; 83690; 84703; 85025; 99283-25; J0131; J7030

== ENCOUNTER 2019-03-13 02:40 | Emergency (ER) | payer OTHER ==
[2019-03-13 03:27] VITALS: TEMP 98.4; BMI 40.3
--- NOTE | 2019-03-13 03:39 | PDOC ---
Attending Attestation - Resident Resident Name: DouglassLukas - ED Attending Attestation I have performed the following: I have examined & evaluated the patient, The case was reviewed & discussed with the resident, I agree w/resident's findings & plan - HPI HPI: 03/13/19 04:35 see resident hpi - Physicial Exam PE: 03/13/19 04:35 see resident exam - Medical Decision Making 03/13/19 04:36 33-year-old female with history of diverticulitis returns to the emergency department for the second time today with persistent abdominal pain and vomiting Plan for CT scan abdomen and pelvis continued IV hydration and antiemetics We will reevaluate and admit pending results
[2019-03-13] MEDS ORDERED: METOCLOPRAMIDE HCL INJECTION 10 MG/2 ML VIAL IVPUSH ONE (04:06)
[2019-03-13] MEDS ORDERED: LACTATED RINGERS SOLUTION 1000 ML INFUS.BAG IV ONE (04:06)
[2019-03-13] MEDS ORDERED: FAMOTIDINE 20 MG/50 ML IVPB 20 MG/50 ML MG IVPB ONE (04:06)
--- NOTE | 2019-03-13 04:07 | PDOC ---
History of Present Illness - General Chief Complaint: Nausea/Vomiting Stated Complaint: VOMITING Time Seen by Provider: 03/13/19 03:35 - History of Present Illness Initial Comments: 34 y/o female presenting to [facility] ER complaining of abdominal pain with nausea and vomiting. This is her second visit this evening for similar symptoms. Again , reporting she initially developed diffuse abdominal cramping with nausea and vomiting after eating dinner. Symptoms had improved prior to earlier evaluation , and she was discharged home with GI follow up. She returns as the cramping has again worsened. Also vomited again. Pain has not migrated or localized. Past History - Past Medical History Allergies/Adverse Reactions: Allergies Allergy/AdvReac Type Severity Reaction Status Date / Time No Known Allergies Allergy Verified 03/25/19 04:23 Home Medications: Ambulatory Orders Ondansetron [Zofran *Odt*] 4 mg SL Q8H PRN #10 od.tablet 03/25/19 Pantoprazole Sodium 40 mg PO DAILY #14 tablet. 03/25/19 Asthma: Yes COPD: No CHF: No GI Disorders: Yes (Diverticulosis) - Surgical History Abdominal Surgery: Yes - Reproductive History (#): 2 Para: 0 Cervical CA: No Dysfunctional Uterine Bleeding: No Ectopic : No Endometrial CA: No Polycystic Ovaries: No Therapeutic (s) & number: No Tubal Ligation: No Spontaneous : 0 - Immunization History Immunization Up to Date: Yes - Psycho Social/Smoking Cessation Hx Smoking History: Never smoked Have you smoked in the past 12 months: No Number of Cigarettes Smoked Daily: 3 If you are a former smoker, when did you quit?: 07/2013 Information on smoking cessation initiated: No Hx Alcohol Use: No Drug/Substance Use Hx: Yes (Marijuana) Substance Use Type: None Review of Systems - Review of Systems Comments:: 10 point review of systems completed. All systems negative except as noted above. *Physical Exam - Vital Signs Last Vital Signs Temp Pulse Resp BP Pulse Ox 98.4 F 108 H 18 130/78 98 03/13/19 03:22 03/13/19 03:22 03/13/19 03:22 03/13/19 03:22 03/13/19 03:22 - Physical Exam Vital signs and nursing notes reviewed. Constitutional- Well-developed, well-nourished adult female in no acute distress but mild obvious discomfort. Occasionally observed retching. Found semi -fowlers on hospital bed. Answered all questions appropriately and completely. Head- Normocephalic. No obvious external signs of trauma. Neck- Supple, trachea is midline. Cardiovascular / Chest- Regular rate and regular rhythm. No murmur, rubs, clicks , or gallops. Peripheral pulses- radial pulses full. Respiratory- Breathing unlabored. Equal chest rise and fall. Clear to auscultation bilaterally. No stridor, no wheezing, no rhonchi. Gastrointestinal- Diffuse discomfort to palpation without rebound, guarding, or grimace. No hepatosplenomegaly. No pulsatile masses. No overlying skin lesions or obvious signs of trauma. Neuro- Alert and oriented x4. Moving all four extremities spontaneously. Skin- Warm, dry, and intact. - No CVA tenderness. Psych- Affect- appropriate. Mood- normal. Speech was non-labored, non- pressured. ED Treatment Course - RADIOLOGY Radiology Studies Ordered: Category Date Time Status ABDOMEN & PELVIS CT WITH CONTR [CT] Stat CT Scan 03/13/19 04:05 Ordered CHEST X-RAY PORTABLE* [RAD] Stat Radiology 03/13/19 04:05 Ordered Radiograph Interpretation: CTAB: THIS IS A PRELIMINARY REPORT FROM [facility] DATE OF SERVICE: 2019-03-13 05:46:42 IMAGES: 288 EXAM: CT ABDOMEN AND PELVIS WITH CONTRAST No bowel obstruction or inflammation. No free fluid or free air. Normal appendix. Unremarkable liver, spleen, stomach, pancreas, kidneys and gallbladder. One or more of the following dose reduction techniques were used: automated exposure control, adjustment of the mA and/or kV according to patient size, use of iterative reconstructive technique. THIS DOCUMENT HAS BEEN ELECTRONICALLY SIGNED Briana Fitch M.D. 03/13/2019 06:20 EST Medical Decision Making - Medical Decision Making 34 y/o female presenting with diffuse abdominal cramping w/ nausea and vomiting in setting of known h/o diverticulitis. Second visit tonight. Afebrile. Vitals remarkable for mild tachycardia without hypotension. Physical exam as described above. No acute abdominal signs, but will obtain CTAP to evaluation for acute diverticulitis vs intra-abdominal abscess vs obstruction. Ordered LF IVFB, Reglan, and Pepcid for symptom relief. Will not repeat labs as they were obtain <4hrs ago. CTAP unremarkable for acute intra-abdominal process. Pt reassessed and found resting comfortably. Symptoms have again resolved. Unclear etiology of cramping and N/V. Will discharge pt home as exam and symptoms have improved. Low suspicion for acute life threat. Again encouraged pt to f/u with GI clinic as instructed after previous visit. Lukas Douglass M.D., PGY2 Emergency Medicine Resident Discharge - Discharge Information Problems reviewed: Yes Clinical Impression/Diagnosis: Vomiting Qualifiers: Vomiting type: unspecified Vomiting Intractability: non-intractable Nausea presence: unspecified Qualified Code(s): R11.10 - Vomiting, unspecified Condition: Good Disposition: HOME - Admission No - Follow up/Referral Referrals: Zenia Mitchell [Primary Care Provider] - - Patient Discharge Instructions Additional Instructions: Your CT scan was normal today. The results are attached to this packet. Take it with you to your doctor's appointment so they can see it. Follow the discharge instructions given earlier amanda. - Post Discharge Activity
[2019-03-13] MEDS ORDERED: METOCLOPRAMIDE HCL INJECTION 10 MG/2 ML VIAL ONE (04:09)
[2019-03-13 06:19] VITALS: BP 121/95; PULSE 102
--- NOTE | 2019-03-13 14:55 | EKG ---
Test Reason : Blood Pressure : / mmHG Vent. Rate : 080 BPM Atrial Rate : 080 BPM P-R Int : 160 ms QRS Dur : 088 ms QT Int : 396 ms P-R-T Axes : 045 050 023 degrees QTc Int : 456 ms NORMAL SINUS RHYTHM NORMAL ECG WHEN COMPARED WITH ECG OF 14-JUN-2018 11:40, NO SIGNIFICANT CHANGE WAS FOUND Confirmed by KRYSTEN MILES MD ([id number]) on 03/13/2019 2:55:16 PM Referred By: Confirmed By:KRYSTEN MILES MD
== END 2019-03-13 06:44 | disposition home or self-care (01) ==
LOC: JER 02:40
PROC: 3E033GC Introduction of Other Therapeutic Substance into Peripheral Vein, Percutaneous Approach (ICD-10-PCS; principal; 2019-03-13)
PROC: 3E0F7GC Introduction of Other Therapeutic Substance into Respiratory Tract, Via Natural or Artificial Opening (ICD-10-PCS; 2019-03-13)
PROC: 3E033GC Introduction of Other Therapeutic Substance into Peripheral Vein, Percutaneous Approach (ICD-10-PCS; 2019-03-13)
DX: R11.10 Vomiting, unspecified (principal); Z87.891 Personal history of nicotine dependence; J45.909 Unspecified asthma, uncomplicated; K57.92 Diverticulitis of intestine, part unspecified, without perforation or abscess without bleeding
CPT/HCPCS: 74177-TC; 93005; 93010; 94640; 96365; 96375; 99282-25

== ENCOUNTER 2019-03-25 04:01 | Emergency (ER) | payer OTHER ==
[2019-03-25 04:24] VITALS: TEMP 98.2; BMI 41.1
[2019-03-25] MEDS ORDERED: LACTATED RINGERS SOLUTION 1,000 ML/1,000 ML INFUS.BAG IV STA (04:41)
[2019-03-25] MEDS ORDERED: METOCLOPRAMIDE HCL INJECTION 10 MG/2 ML VIAL IVPUSH ONE (04:41)
[2019-03-25] MEDS ORDERED: ONDANSETRON 4 MG/2 ML VIAL ONE (04:59)
--- NOTE | 2019-03-25 05:50 | PDOC ---
History of Present Illness - General Chief Complaint: Nausea/Vomiting Stated Complaint: VOMITING Time Seen by Provider: 03/25/19 05:14 History Source: Patient - History of Present Illness Initial Comments: 03/25/19 05:50 Pt is a 33y/o female with hx of diverticulitis and gastritis who presents with 2 days of cramping abdominal pain, nausea, and vomiting following drinking 2 mixed alcoholic drinks Monday night. She woke up Monday with pain and nausea. Vomiting initially did not have blood in it but after several times there were blood streaks in it. She denies jovani blood. She was able to eat a sandwich on Monday. She took Zofran without relief. Pt has been here multiple times for vomiting, and she was instructed to follow up with GI but has not. She is not currently on GI medications. She denies fever or chills. Last BM was yesterday and was normal. Past History - Past Medical History Allergies/Adverse Reactions: Allergies Allergy/AdvReac Type Severity Reaction Status Date / Time No Known Allergies Allergy Verified 03/25/19 04:23 Home Medications: Ambulatory Orders Ondansetron [Zofran *Odt*] 4 mg SL Q8H PRN #10 od.tablet 03/25/19 Pantoprazole Sodium 40 mg PO DAILY #14 tablet. 03/25/19 Asthma: Yes COPD: No CHF: No GI Disorders: Yes (Diverticulosis, gastritis) - Surgical History Abdominal Surgery: Yes (fibroids) - Reproductive History (#): 2 Para: 0 Cervical CA: No Dysfunctional Uterine Bleeding: No Ectopic : No Endometrial CA: No Polycystic Ovaries: No Therapeutic (s) & number: No Tubal Ligation: No Spontaneous : 0 - Immunization History Immunization Up to Date: Yes - Psycho Social/Smoking Cessation Hx Smoking History: Former smoker Have you smoked in the past 12 months: No Number of Cigarettes Smoked Daily: 3 If you are a former smoker, when did you quit?: 07/2013 Information on smoking cessation initiated: No Hx Alcohol Use: Yes Drug/Substance Use Hx: No Substance Use Type: None Review of Systems - Review of Systems Constitutional: No: Chills, Fever Respiratory: No: Shortness of Breath Cardiac (ROS): No: Chest Pain ABD/GI: Yes: Nausea, Vomiting. No: Diarrhea, Tarry Stools : No: Dysuria Neurological: No: Headache, Dizziness *Physical Exam - Vital Signs Last Vital Signs Temp Pulse Resp BP Pulse Ox 98.2 F 88 22 H 135/86 99 03/25/19 04:05 03/25/19 04:05 03/25/19 04:05 03/25/19 04:05 03/25/19 04:05 - Physical Exam General Appearance: Yes: Appropriately Dressed, Obese. No: Apparent Distress HEENT: positive: EOMI, SANDRA Respiratory/Chest: positive: Lungs Clear Cardiovascular: positive: Regular Rhythm, Regular Rate. negative: Murmur Gastrointestinal/Abdominal: positive: Normal Bowel Sounds, Tender (diffuse). negative: Guarding, Rebound Neurologic: positive: Fully Oriented, Alert, Normal Mood/Affect ED Treatment Course - LABORATORY CBC & Chemistry Diagram: 03/25/19 05:24 03/25/19 04:50 - ADDITIONAL ORDERS Additional order review: Laboratory Results 03/25/19 04:50 Lipase 151 - Medications Given in the ED: ED Medications Discontinued Medications Generic Name Dose Route Start Last Admin Trade Name Clintonq PRN Reason Stop Dose Admin Lactated Ringer's 1,000 ml in 1,000 mls @ 1,000 mls/hr 03/25/19 04:41 05:07 Lactated Ringers Solution IV 03/25/19 05:40 1,000 mls/hr ONCE STA Administration Metoclopramide HCl 10 mg 03/25/19 04:41 03/25/19 05:09 Reglan Injection - IVPUSH 03/25/19 04:42 10 mg ONCE ONE Administration Medical Decision Making - Medical Decision Making 03/25/19 06:14 Pt is a 33y/o female with hx of diverticulitis and gastritis who presents with 2 days of cramping abdominal pain, nausea, and vomiting following drinking 2 mixed alcoholic drinks Monday night. She woke up Monday with pain and nausea. Vomiting initially did not have blood in it but after several times there were blood streaks in it. She denies jovani blood. ddx: gastritis 2/2 alcohol, upper GI bleed, gastroenteritis orders: IV fluids, Zofran, Reglan, Pepcid, Protonix, CBC, CMP, UPT out pt prescriptions for Protonix 40mg daily for 14 days and Zofran 4mg Q8H PRN #10 will be sent to pharmacy 03/25/19 06:30 CBC and CMP unremarkable UPT needs to be collected Discharge - Discharge Information Problems reviewed: Yes Clinical Impression/Diagnosis: Gastritis Qualifiers: Gastritis type: other gastritis Chronicity: unspecified Gastritis bleeding: presence of bleeding unspecified Qualified Code(s): K29.60 - Other gastritis without bleeding Condition: Fair Disposition: HOME - Additional Discharge Information Prescriptions: Ondansetron [Zofran *Odt*] 4 mg SL Q8H PRN #10 od.tablet PRN Reason: Nausea Pantoprazole Sodium 40 mg PO DAILY #14 tablet.dr - Follow up/Referral Referrals: Zenia Mitchell [Primary Care Provider] - - Patient Discharge Instructions Patient Printed Discharge Instructions: DI for Vomiting -- Adult Additional Instructions: You were seen in the emergency room for abdominal pain and vomiting. You were given medications and fluids. You are improved and may return home. Your care is not complete until your follow up with a manager cos[employer]. CALL YOUR INSURANCE COMPANY FOR REFERRALS. You are being given a prescription for a medicine to decrease acid. It may take a few days for full effect. Take it daily. Return to the emergency room if your abdominal pain worsens, you begin vomiting blood, have tarry stools, get dizzy or pass out. - Post Discharge Activity
[2019-03-25 05:51] LABS: ALBUMIN 3.8 g/dl (3.4-5.0); BILIRUBIN,TOTAL 0.4 mg/dL (0.2-1); BLOOD UREA NITROGEN 9.5 mg/dL (7-18); CALCIUM 8.7 mg/dL (8.5-10.1); CREATININE 0.9 mg/dL (0.55-1.3); POTASSIUM 4.1 mmol/L (3.5-5.1); TOT PROT 7.3 g/dl (6.4-8.2)
[2019-03-25] MEDS ORDERED: FAMOTIDINE 20 MG/50 ML IVPB 20 MG/50 ML MG IVPB ONE ×2 (05:55→06:07)
--- NOTE | 2019-03-25 06:01 | PDOC ---
Attending Attestation - Resident Resident Name: Marilyn Chris - ED Attending Attestation I have performed the following: I have examined & evaluated the patient, The case was reviewed & discussed with the resident, I agree w/resident's findings & plan, Exceptions are as noted - HPI HPI: 03/25/19 05:58 33yoF hx of recurrnet gastriis and frequent ED presntations for nausea/vomtiing , chronic MJ use presnets w/ same after drinking some etoh 2 nights ago. Persisent epig pain and vomiting since. Pt is tearful on examination. - Physicial Exam PE: 03/25/19 06:00 tearful RRR CTABL soft NTND, obese A&O x 3 - Medical Decision Making 03/25/19 06:00 33yoF w/ frequent visits for vomiting/gastritis presnts w/ same after etoh use. - labs - sxs control, ivf - Dispo per results.
[2019-03-25] MEDS ORDERED: PANTOPRAZOLE SODIUM 40 MG VIAL IVPUSH ONE (06:21)
[2019-03-25 06:23] LABS: BASO % 0.6 % (0-2.0); EOS % 1.5 % (0-4.5); HEMOGLOBIN 13.7 GM/dL (10.7-15.3); LYMPH % 20.9 % (8-40); MCH 28.7 pg (25.7-33.7); MCHC 33.3 g/dl (32.0-36.0); MEAN CELL VOLUME 86.1 fl (80-96); MEAN PLT VOLUME 7.5 fl (7.5-11.1); MONO % 5.1 % (3.8-10.2); NEUT % 71.9 % (42.8-82.8); PLATELET COUNT 264 K/MM3 (134-434); RBC 4.77 M/mm3 (3.60-5.2); RDW 13.8 % (11.6-15.6); WHITE BLOOD COUNT 6.5 K/mm3 (4.0-10.0)
[2019-03-25] MEDS ORDERED: PANTOPRAZOLE SODIUM 40 MG VIAL ONE (06:39)
--- NOTE | 2019-03-25 07:42 | PDOC ---
*Physical Exam - Vital Signs Last Vital Signs Temp Pulse Resp BP Pulse Ox 98.2 F 88 22 H 135/86 99 03/25/19 04:05 03/25/19 04:05 03/25/19 04:05 03/25/19 04:05 03/25/19 04:05 ED Treatment Course - LABORATORY CBC & Chemistry Diagram: 03/25/19 05:24 03/25/19 04:50 - ADDITIONAL ORDERS Additional order review: Laboratory Results 03/25/19 03/25/19 04:50 04:50 Sodium 141 Potassium 4.1 Chloride 108 H Carbon Dioxide 28 Anion Gap 5 L BUN 9.5 Creatinine 0.9 Est GFR (CKD-EPI)AfAm 96.69 Est GFR (CKD-EPI)NonAf 83.42 Random Glucose 130 H Calcium 8.7 Total Bilirubin 0.4 AST 17 ALT 25 Alkaline Phosphatase 58 Total Protein 7.3 Albumin 3.8 Lipase 151 03/25/19 05:24 RBC 4.77 MCV 86.1 MCHC 33.3 RDW 13.8 MPV 7.5 Neutrophils % 71.9 Lymphocytes % 20.9 Monocytes % 5.1 Eosinophils % 1.5 Basophils % 0.6 - Medications Given in the ED: ED Medications Discontinued Medications Generic Name Dose Route Start Last Admin Trade Name Freq PRN Reason Stop Dose Admin Lactated Ringer's 1,000 ml in 1,000 mls @ 1,000 mls/hr 03/25/19 04:41 05:07 Lactated Ringers Solution IV 03/25/19 05:40 1,000 mls/hr ONCE STA Administration Famotidine/Sodium Chloride 20 mg in 50 mls @ 100 mls/hr 03/25/19 05:55 06:44 Pepcid 20 Mg Premixed Ivpb - IVPB 03/25/19 06:24 100 mls/hr ONCE ONE Administration Metoclopramide HCl 10 mg 03/25/19 04:41 03/25/19 05:09 Reglan Injection - IVPUSH 03/25/19 04:42 10 mg ONCE ONE Administration Pantoprazole Sodium 40 mg 03/25/19 06:21 03/25/19 06:44 Protonix Iv IVPUSH 03/25/19 06:22 40 mg ONCE ONE Administration Medical Decision Making - Medical Decision Making 03/25/19 07:39 33y/o F presenting with cramping abdominal pain, nausea and vomiting LFt's and lipase within normal limits. meds; received Pepcid, reglan, zofran, protonix to do's serum test po challenge dispo 03/25/19 08:10 Serum test is negative Pt tolerated po Feeling well enough to go home. Discharge - Discharge Information Problems reviewed: Yes Clinical Impression/Diagnosis: Gastritis Qualifiers: Gastritis type: other gastritis Chronicity: unspecified Gastritis bleeding: presence of bleeding unspecified Qualified Code(s): K29.60 - Other gastritis without bleeding Condition: Fair Disposition: HOME - Additional Discharge Information Prescriptions: Ondansetron [Zofran *Odt*] 4 mg SL Q8H PRN #10 od.tablet PRN Reason: Nausea Pantoprazole Sodium 40 mg PO DAILY #14 tablet.dr - Follow up/Referral Referrals: Zenia Mitchell [Primary Care Provider] - - Patient Discharge Instructions Patient Printed Discharge Instructions: DI for Vomiting -- Adult Additional Instructions: You were seen in the emergency room for abdominal pain and vomiting. You were given medications and fluids. You are improved and may return home. Your care is not complete until your follow up with a dairy bacteriologist. CALL YOUR INSURANCE COMPANY FOR REFERRALS. You are being given a prescription for a medicine to decrease acid. It may take a few days for full effect. Take it daily. Return to the emergency room if your abdominal pain worsens, you begin vomiting blood, have tarry stools, get dizzy or pass out. - Post Discharge Activity
[2019-03-25 08:47] VITALS: BP 94/69; PULSE 87
== END 2019-03-25 08:47 | disposition home or self-care (01) ==
LOC: JER 04:01
PROC: 3E0337Z Introduction of Electrolytic and Water Balance Substance into Peripheral Vein, Percutaneous Approach (ICD-10-PCS; principal; 2019-03-25)
PROC: 3E033GC Introduction of Other Therapeutic Substance into Peripheral Vein, Percutaneous Approach (ICD-10-PCS; 2019-03-25)
PROC: 3E033GC Introduction of Other Therapeutic Substance into Peripheral Vein, Percutaneous Approach (ICD-10-PCS; 2019-03-25)
PROC: 3E033GC Introduction of Other Therapeutic Substance into Peripheral Vein, Percutaneous Approach (ICD-10-PCS; 2019-03-25)
DX: K29.60 Other gastritis without bleeding (principal)
CPT/HCPCS: 36415; 80053; 83690; 84703; 85025; 96361; 96365; 96375; 99282-25

== ENCOUNTER 2019-09-01 07:51 | Emergency (ER) | payer OTHER ==
--- NOTE | 2019-09-01 07:58 | PDOC ---
History of Present Illness <Jluio Alaniz - Last Filed: 09/01/19 11:20> - History of Present Illness Initial Comments: 33 yo female with pMH of gastritis, diverticulitis comes in for 1 week hx of nausea/vomiting. Her vomiting has worsened in the last day and became bloody. She has taken zofran and tylenol without success. She endorses cramping abdominal pain that started after the vomiting. She denies diarrhea, constipation, SOB, CP, blood stool. She has had multiple visits to the ED with similar symptoms. She smokes marijuana multiple times a week. 09/01/19 11:43 <Felicitas Elias - Last Filed: 09/01/19 11:47> - General Stated Complaint: ABDOMINAL PAIN Past History <Julio Alaniz - Last Filed: 09/01/19 11:20> - Medical History Asthma: Yes COPD: No CHF: No GI Disorders: Yes (Diverticulosis, gastritis) - Surgical History Abdominal Surgery: Yes (fibroids) - Reproductive History (#): 2 Para: 0 Cervical CA: No Dysfunctional Uterine Bleeding: No Ectopic : No Endometrial CA: No Polycystic Ovaries: No Therapeutic (s) & number: No Tubal Ligation: No Spontaneous : 0 - Immunization History Immunization Up to Date: Yes - Psycho-Social/Smoking History Smoking History: Never smoked Have you smoked in the past 12 months: No Number of Cigarettes Smoked Daily: 3 If you are a former smoker, when did you quit?: 07/2013 <Felicitas Elias - Last Filed: 09/01/19 11:47> - Medical History Allergies/Adverse Reactions: Allergies Allergy/AdvReac Type Severity Reaction Status Date / Time No Known Allergies Allergy Verified 09/01/19 08:16 Home Medications: Ambulatory Orders Ondansetron [Zofran *Odt*] 4 mg SL TID PRN #15 od.tablet 05/23/19 Ondansetron [Zofran *Odt*] 4 mg SL BID 4 Days #8 od.tablet 09/01/19 Review of Systems - Review of Systems Constitutional: No: Chills, Diaphoresis, Fever HEENTM: No: Recent change in vision, Double Vision Respiratory: No: Cough, Orthopnea, Shortness of Breath Cardiac (ROS): No: Chest Pain, Edema, Palpitations ABD/GI: Yes: Nausea, Vomiting (bloody), Other. No: Abdominal Distended, Constipated, Diarrhea, Rectal Bleeding : No: Burning, Dysuria, Discharge Musculoskeletal: No: Joint Pain, Muscle Pain, Muscle Weakness Integumentary: No: Bruising, Change in Color, Flushing Neurological: No: Headache, Dizziness Psychiatric: No: Anxiety, Depression, Mood Swings Endocrine: No: Intolerance to Cold, Intolerance to Heat <JadaBilti - Last Filed: 09/01/19 11:47> *Physical Exam - Vital Signs Last Vital Signs Temp Pulse Resp BP Pulse Ox 98.6 F 77 18 121/78 98 09/01/19 08:14 09/01/19 08:14 09/01/19 08:14 09/01/19 08:14 09/01/19 08:36 <Julio Alaniz - Last Filed: 09/01/19 11:20> - Physical Exam General Appearance: Yes: Appropriately Dressed. No: Apparent Distress, Disheveled HEENT: positive: EOMI, Normal Voice Neck: negative: Rigid, Supple Respiratory/Chest: positive: Lungs Clear, Normal Breath Sounds. negative: Respiratory Distress Cardiovascular: positive: Regular Rhythm, Regular Rate, S1, S2 Gastrointestinal/Abdominal: positive: Normal Bowel Sounds, Tender (epigastric and lower abdominal ), Flat, Soft. negative: Organomegaly Integumentary: positive: Normal Color, Dry, Warm <JadaBilti - Last Filed: 09/01/19 11:47> ED Treatment Course - LABORATORY CBC & Chemistry Diagram: 09/01/19 09:00 09/01/19 09:00 - ADDITIONAL ORDERS Additional order review: Laboratory Results 09/01/19 09/01/19 09:00 09:00 Sodium 140 Potassium 4.4 Chloride 106 Carbon Dioxide 28 Anion Gap 6 L BUN 5.8 L Creatinine 0.7 Est GFR (CKD-EPI)AfAm 131.02 Est GFR (CKD-EPI)NonAf 113.04 Random Glucose 99 Calcium 8.8 Total Bilirubin 0.9 AST 17 ALT 26 Alkaline Phosphatase 53 Total Protein 7.2 Albumin 3.9 Lipase 71 L Urine Color Yellow Urine Appearance Clear Urine pH 8.5 H D Ur Specific [place] 1.019 Urine Protein Negative Urine Glucose (UA) Negative Urine Ketones Negative Urine Blood Negative Urine Nitrite Negative Urine Bilirubin Negative Urine Urobilinogen 0.2 Ur Leukocyte Esterase Negative Urine HCG, Qual Negative 09/01/19 09:00 RBC 4.44 MCV 86.8 MCHC 32.2 RDW 14.1 MPV 7.6 Neutrophils % 66.1 Lymphocytes % 25.9 D Monocytes % 6.4 Eosinophils % 1.2 Basophils % 0.4 - Medications Given in the ED: ED Medications Discontinued Medications Generic Name Dose Route Start Last Admin Trade Name Drake PRN Reason Stop Dose Admin Acetaminophen 1,000 mg 09/01/19 09:36 09/01/19 09:53 Ofirmev Injection - IVPB 09/01/19 09:37 1,000 mg ONCE ONE Administration Sodium Chloride 1,000 mls @ 1,000 mls/hr 09/01/19 09:36 09/01/19 09:52 Normal Saline - IV 09/01/19 10:35 1,000 mls/hr ASDIR STA Administration Ondansetron HCl 4 mg 09/01/19 09:36 09/01/19 09:53 Zofran Injection IVPB 09/01/19 09:37 4 mg ONCE ONE Administration <Julio Alaniz - Last Filed: 09/01/19 11:20> - LABORATORY CBC & Chemistry Diagram: 09/01/19 09:00 09/01/19 09:00 <Felicitas Elias - Last Filed: 09/01/19 11:47> Medical Decision Making - Medical Decision Making 33 yo female assessed for N/V. CT scan in april was positive for diverticuolsis. She was treated with Tylenol, Zofran and fluids. CMB, CBC, and lipase was negative. Pt is currently stable with improvement in symptoms. Will be discharged to follow up with PCP. <Felicitas Elias - Last Filed: 09/01/19 11:47> Discharge - Discharge Information Problems reviewed: Yes - Admission No <Julio Alaniz - Last Filed: 09/01/19 11:20> - Discharge Information Problems reviewed: Yes - Admission No <Felicitas Elias - Last Filed: 09/01/19 11:47> - Discharge Information Clinical Impression/Diagnosis: Abdominal pain with nonbilious vomiting Condition: Stable Disposition: HOME - Additional Discharge Information Prescriptions: Ondansetron [Zofran *Odt*] 4 mg SL BID 4 Days #8 od.tablet - Follow up/Referral Referrals: Zenia Mitchell [Primary Care Provider] - Domingo Klein MD [Staff Physician] - - Patient Discharge Instructions Patient Printed Discharge Instructions: DI for Abdominal Pain-Adult, DI for Vomiting -- Adult Additional Instructions: Please see your Primary DOctor within 48 hours. Take the medication zofran as prescribed. Return to the ER for new or concerning symptoms Thank you - Post Discharge Activity
[2019-09-01 08:17] VITALS: TEMP 98.6; BMI 38.7
[2019-09-01] MEDS ORDERED: ACETAMINOPHEN 1000 MG/100 ML VIAL (NON FORMULARY) IVPB ONE (09:36)
[2019-09-01] MEDS ORDERED: ONDANSETRON 4 MG/2 ML VIAL IVPB ONE (09:36)
[2019-09-01] MEDS ORDERED: SODIUM CHLORIDE 1,000 ML IV STA (09:36)
[2019-09-01] MEDS ORDERED: ACETAMINOPHEN INJECTION 100 ML IVPB ONE (09:42)
[2019-09-01 09:48] LABS: BASO % 0.4 % (0-2.0); EOS % 1.2 % (0-4.5); HEMATOCRIT 38.6 % (32.4-45.2); HEMOGLOBIN 12.4 GM/dL (10.7-15.3); LYMPH % 25.9 % (8-40); MCH 27.9 pg (25.7-33.7); MCHC 32.2 g/dl (32.0-36.0); MEAN CELL VOLUME 86.8 fl (80-96); MEAN PLT VOLUME 7.6 fl (7.5-11.1); MONO % 6.4 % (3.8-10.2); NEUT % 66.1 % (42.8-82.8); PLATELET COUNT 259 K/MM3 (134-434); RBC 4.44 M/mm3 (3.60-5.2); RDW 14.1 % (11.6-15.6); WHITE BLOOD COUNT 6.1 K/mm3 (4.0-10.0)
[2019-09-01 09:51] LABS: PH,URINE 8.5 (5.0-8.0); URINE APPEARANCE CLEAR; URINE BILIRUBIN NEGATIVE (NEGATIVE); URINE COLOR YELLOW; URINE GLUCOSE (UA) NEGATIVE (NEGATIVE); URINE KETONE NEGATIVE (NEGATIVE); URINE LEUK ESTERASE NEGATIVE (NEGATIVE); URINE NITRITE NEGATIVE (NEGATIVE); URINE PROTEIN NEGATIVE (NEGATIVE); URINE UROBILINOGEN 0.2 mg/dL (0.2-1.0)
[2019-09-01 09:53] LABS: HCG,QUALITATIVE URINE Negative
[2019-09-01 10:08] LABS: ALBUMIN 3.9 g/dl (3.4-5.0); BILIRUBIN,TOTAL 0.9 mg/dL (0.2-1); BLOOD UREA NITROGEN 5.8 mg/dL (7-18); CALCIUM 8.8 mg/dL (8.5-10.1); CREATININE 0.7 mg/dL (0.55-1.3); POTASSIUM 4.4 mmol/L (3.5-5.1); TOT PROT 7.2 g/dl (6.4-8.2)
--- NOTE | 2019-09-01 11:14 | PDOC ---
Documentation entered by Oliver Carrillo SCRIBE, acting as scribe for Manpreet Moore MD. Manpreet Moore MD: This documentation has been prepared by the Ger[employer] Nirvannie, SCRIBE, under my direction and personally reviewed by me in its entirety. I confirm that the documentation accurately reflects all work, treatment, procedures, and medical decision making performed by me. Attending Attestation - Resident Resident Name: Felicitas Elias - ED Attending Attestation I have performed the following: I have examined & evaluated the patient, The case was reviewed & discussed with the resident, I agree w/resident's findings & plan, Exceptions are as noted - HPI HPI: 09/01/19 09:42 The patient is a 33 year old female with a significant past medical history of diverticulitis, GERD, gastritis, and multiple ER visits for vomiting/gastritis who presents to the emergency department with diffuse abdominal pain, nausea, and vomiting. Pt states this feels similar to previous episodes. Denies F/C. Denies dysuria. Denies vaginal bleeding/discharge. Allergies: NKDA Primary Care Physician: Dr. Mitchell - Physicial Exam PE: 09/01/19 11:15 "GENERAL: Awake, alert, and fully oriented, in no acute distress. HEAD: No signs of trauma EYES: PERRLA, EOMI, sclera anicteric, conjunctiva clear ENT: Auricles normal inspection, hearing grossly normal, nares patent, oropharynx clear without exudates. Moist mucosa NECK: Nontender, no stepoffs, Normal ROM, supple, no lymphadenopathy, JVD, or masses LUNGS: Breath sounds equal, clear to auscultation bilaterally. No wheezes, and no crackles HEART: Regular rate and rhythm, normal S1 and S2, no murmurs, rubs or gallops ABDOMEN: + epigastric TTP, normoactive bowel sounds. No guarding, no rebound. No masses EXTREMITIES: Normal range of motion, no edema. No clubbing or cyanosis. No cords, erythema, or tenderness NEUROLOGICAL: Cranial nerves II through XII intact. 5/5 strength and sensation in all extremities, Normal speech, normal gait, normal cerebellar function SKIN: Warm, Dry, normal turgor, no rashes or lesions noted. - Medical Decision Making 09/01/19 11:15 33 F with epigastric pain and N+V. Suspect gastritis vs CHS. - labs - GI cocktail Labs wnl Pt reassessed - pain now resolved with GI cocktail, tolerating PO Pt is well appearing, with normal vitals. Clinically stable for DC at this time. I discussed the physical exam findings, ancillary test results and final diagnoses with the patient. I answered all of the patient's questions. The patient was satisfied with the care received and felt comfortable with the discharge plan and treatment plan. The patient agrees to follow up with the primary care physician within 24-72 hours. Please note this patient was evaluated during the COVID-19 crisis with the presidential [place] Act Declaration and the [place] governor executive order number 202. He/she was evaluated and clinical decisions were made relative to healthcare system resources as well as clinical picture during a pandemic crisis situation. Discharge - Discharge Information Problems reviewed: Yes Clinical Impression/Diagnosis: Abdominal pain, Nausea and vomiting, Gastritis Condition: Stable Disposition: HOME - Additional Discharge Information Prescriptions: Ondansetron [Zofran *Odt*] 4 mg SL BID 4 Days #8 od.tablet Ondansetron [Zofran *Odt*] 4 mg SL BID #8 od.tablet - Follow up/Referral Referrals: Zenia Mitchell [Primary Care Provider] - Domingo Klein MD [Staff Physician] - - Patient Discharge Instructions Patient Printed Discharge Instructions: DI for Abdominal Pain-Adult, DI for Vomiting -- Adult Additional Instructions: Please see your Primary DOctor within 48 hours. Take the medication zofran as prescribed. Return to the ER for new or concerning symptoms Thank you - Post Discharge Activity
--- NOTE | 2019-09-01 11:27 | EKG ---
Test Reason : Blood Pressure : / mmHG Vent. Rate : 078 BPM Atrial Rate : 078 BPM P-R Int : 154 ms QRS Dur : 082 ms QT Int : 402 ms P-R-T Axes : 065 056 031 degrees QTc Int : 458 ms NORMAL SINUS RHYTHM NORMAL ECG WHEN COMPARED WITH ECG OF 13-MAR-2019 05:06, NO SIGNIFICANT CHANGE WAS FOUND Confirmed by TREVOR JACOME MD ([id number]) on 09/01/2019 11:26:42 AM Referred By: Confirmed By:TREVOR JACOME MD
[2019-09-01 11:52] VITALS: BP 128/77; PULSE 85
== END 2019-09-01 11:52 | disposition home or self-care (01) ==
LOC: JER 07:51
PROC: 3E033NZ Introduction of Analgesics, Hypnotics, Sedatives into Peripheral Vein, Percutaneous Approach (ICD-10-PCS; principal; 2019-09-01)
PROC: 3E033GC Introduction of Other Therapeutic Substance into Peripheral Vein, Percutaneous Approach (ICD-10-PCS; 2019-09-01)
PROC: 3E0337Z Introduction of Electrolytic and Water Balance Substance into Peripheral Vein, Percutaneous Approach (ICD-10-PCS; 2019-09-01)
DX: R10.9 Unspecified abdominal pain (principal); R11.10 Vomiting, unspecified
CPT/HCPCS: 36415; 80053; 81003; 83690; 84703; 85025; 93005; 93010; 99285-25; J0131

== ENCOUNTER 2020-02-18 19:06 | Emergency (ER) | payer OTHER ==
[2020-02-18 19:15] VITALS: BP 130/74; PULSE 85; TEMP 98.1; BMI 37.9
== END 2020-02-18 19:40 | disposition home or self-care (01) ==
LOC: JERFT 19:06
DX: S61.210A Laceration without foreign body of right index finger without damage to nail, initial encounter (principal)
CPT/HCPCS: 99283-25

== ENCOUNTER 2020-09-21 13:15 | Emergency (ER) | payer OTHER ==
[2020-09-21 13:20] VITALS: BP 112/74; PULSE 94; TEMP 98.2; BMI 40.3
== END 2020-09-21 14:43 | disposition home or self-care (01) ==
LOC: JERFT 13:15
DX: M25.522 Pain in left elbow (principal)
CPT/HCPCS: 99281-25

== ENCOUNTER 2020-10-13 08:17 | Emergency (ER) | payer OTHER ==
[2020-10-13 08:24] VITALS: TEMP 98.3; BMI 40.3
[2020-10-13] MEDS ORDERED: LACTATED RINGERS SOLUTION 1000 ML INFUS.BAG IV ONE (09:14)
[2020-10-13] MEDS ORDERED: ONDANSETRON 4 MG/2 ML VIAL IVPUSH ONE (09:15)
[2020-10-13] MEDS ORDERED: FAMOTIDINE 20 MG/50 ML IVPB 20 MG/50 ML MG IVPB ONE ×2 (09:15→12:10)
[2020-10-13 10:02] LABS: BASO % 0.5 % (0-2.0); EOS % 0.8 % (0-4.5); HEMATOCRIT 38.9 % (32.4-45.2); HEMOGLOBIN 13.2 GM/dL (10.7-15.3); LYMPH % 31.9 % (8-40); MCH 29.2 pg (25.7-33.7); MCHC 33.8 g/dl (32.0-36.0); MEAN CELL VOLUME 86.2 fl (80-96); MEAN PLT VOLUME 7.9 fl (7.5-11.1); MONO % 14.5 % (3.8-10.2); NEUT % 52.3 % (42.8-82.8); PLATELET COUNT 180 10^3/uL (134-434); RBC 4.51 M/mm3 (3.60-5.2); RDW 14.4 % (11.6-15.6); WHITE BLOOD COUNT 3.9 K/mm3 (4.0-10.0)
[2020-10-13 10:10] LABS: INR 0.98 (0.83-1.09); PROTHROMBIN TIME (PATIENT) 11.9 SEC (9.7-13.0)
[2020-10-13 10:13] LABS: ACTIVATED PTT 31.4 SECONDS (25.2-36.5)
[2020-10-13 10:19] LABS: SERUM PREGNANCY TEST NEGATIVE
[2020-10-13] MEDS ORDERED: ONDANSETRON 4 MG/2 ML VIAL ONE (10:20)
[2020-10-13] MEDS ORDERED: FAMOTIDINE 20 MG/50 ML IVPB 0 MG/0 ML MG IVPB ONE (10:20)
[2020-10-13 11:02] LABS: CHLORIDE 105 mmol/L (98-107); SODIUM 132 mmol/L (136-145)
[2020-10-13 11:04] LABS: CALCIUM 8.2 mg/dL (8.5-10.1)
[2020-10-13 11:05] LABS: ALBUMIN 3.4 g/dl (3.4-5.0); BLOOD UREA NITROGEN 7.7 mg/dL (7-18); CO2 24 mmol/L (21-32); GLUCOSE,RANDOM 88 mg/dL (74-106); LIPASE 52 U/L (73-393); MAGNESIUM 2.2 mg/dL (1.8-2.4)
[2020-10-13 11:08] LABS: CREATININE 0.7 mg/dL (0.55-1.3)
[2020-10-13 11:09] LABS: BILIRUBIN,TOTAL 0.2 mg/dL (0.2-1)
[2020-10-13 11:10] LABS: TOT PROT 7.6 g/dl (6.4-8.2)
[2020-10-13 11:11] LABS: ALK PHOS 40 U/L (45-117)
[2020-10-13 11:13] LABS: ANION GAP 3 MMOL/L (8-16); SGOT/AST 80 U/L (15-37); SGPT/ALT 32 U/L (13-61)
[2020-10-13 12:54] LABS: BLOOD UREA NITROGEN 6.9 mg/dL (7-18); CALCIUM 8.1 mg/dL (8.5-10.1)
[2020-10-13 12:58] LABS: CREATININE 0.7 mg/dL (0.55-1.3)
[2020-10-13 14:33] VITALS: BP 130/68; PULSE 77
[2020-10-13] MEDS ORDERED: diazePAM 5 MG TABLET PO ONE (14:50)
[2020-10-13] MEDS ORDERED: LIDOCAINE 5% TOPICAL PATCH TP ONE (14:51)
[2020-10-13] MEDS ORDERED: LIDOCAINE PATCH REMOVAL MC ONE (22:00)
== END 2020-10-13 13:30 | disposition home or self-care (01) ==
LOC: JER 08:17
PROC: 3E033GC Introduction of Other Therapeutic Substance into Peripheral Vein, Percutaneous Approach (ICD-10-PCS; principal; 2020-10-13)
DX: N83.201 Unspecified ovarian cyst, right side (principal)
CPT/HCPCS: 36415; 71046-TC-FY; 74177-TC; 76705-TC; 80048; 80053; 82272; 83690; 83735; 84703; 85025; 85610; 85730; 99285-25; C9803; Q9967; U0003; U0005

== ENCOUNTER 2020-11-01 22:15 | Observation (INO) | payer OTHER ==
[2020-11-01] MEDS ORDERED: SODIUM CHLORIDE 1,000 ML IV STA (23:08)
[2020-11-01] MEDS ORDERED: HALOPERIDOL LACTATE 5 MG/ML IM ONE (23:27)
[2020-11-01 23:32] LABS: BASO % 0.5 % (0-2.0); EOS % 1.5 % (0-4.5); HEMOGLOBIN 12.8 GM/dL (10.7-15.3); LYMPH % 19.6 % (8-40); MCH 28.9 pg (25.7-33.7); MCHC 33.8 g/dl (32.0-36.0); MEAN CELL VOLUME 85.7 fl (80-96); MEAN PLT VOLUME 7.1 fl (7.5-11.1); MONO % 7.7 % (3.8-10.2); NEUT % 70.7 % (42.8-82.8); PLATELET COUNT 264 10^3/uL (134-434); RBC 4.43 M/mm3 (3.60-5.2); RDW 14.4 % (11.6-15.6); WHITE BLOOD COUNT 13.1 K/mm3 (4.0-10.0)
[2020-11-01] MEDS ORDERED: HALOPERIDOL LACTATE 5 MG/ML ONE (23:37)
[2020-11-01 23:56] LABS: ALBUMIN 4.2 g/dl (3.4-5.0); BLOOD UREA NITROGEN 13.2 mg/dL (7-18); CALCIUM 9.1 mg/dL (8.5-10.1)
[2020-11-01 23:59] LABS: CREATININE 0.9 mg/dL (0.55-1.3)
[2020-11-02 00:01] LABS: BILIRUBIN,TOTAL 0.6 mg/dL (0.2-1)
[2020-11-02] MEDS ORDERED: ONDANSETRON 4 MG/2 ML VIAL ONE (00:41)
[2020-11-02] MEDS ORDERED: ONDANSETRON 4 MG/2 ML VIAL IVPUSH ONE (00:41)
[2020-11-02] MEDS ORDERED: METOCLOPRAMIDE HCL INJECTION 10 MG/2 ML VIAL IVPB ONE (01:16)
[2020-11-02] MEDS ORDERED: METOCLOPRAMIDE HCL INJECTION 10 MG/2 ML VIAL ONE ×2 (01:16→08:04)
[2020-11-02] MEDS ORDERED: FAMOTIDINE 20 MG/50 ML IVPB 20 MG/50 ML MG IVPB ONE ×2 (02:03→03:08)
[2020-11-02] MEDS ORDERED: MAG HYDROX/AL HYDROX/SIMETH 30 ML UNIT-DOSE CUP PO ONE (02:03)
[2020-11-02] MEDS ORDERED: LORazepam 2 MG/ML SDV VIAL ONE (02:45)
[2020-11-02] MEDS ORDERED: LORazepam 2 MG/ML SDV VIAL IVPUSH ONE (02:50)
[2020-11-02] MEDS ORDERED: MAG HYDROX/AL HYDROX/SIMETH 30 ML UNIT-DOSE CUP ONE (03:08)
[2020-11-02] MEDS: METOCLOPRAMIDE HCL INJECTION 10 MG/2 ML VIAL IVPUSH PRN ×2 (08:37→14:26)
[2020-11-02] MEDS: SODIUM CHLORIDE 1,000 ML IV SCH (08:37)
[2020-11-02] MEDS: INSULIN SLIDING SCALE (NOVOLOG) 1 VIAL SQ SCH ×4 (08:37→22:47)
[2020-11-02] MEDS ORDERED: PT OWN MED DRAWER 7, Y5N ONE (10:14)
[2020-11-02] MEDS ORDERED: PANTOPRAZOLE SODIUM 40 MG VIAL ONE (10:14)
[2020-11-02] MEDS: NICOTINE 7 MG/24 HOURS TOPICAL PATCH TD SCH (10:31)
[2020-11-02] MEDS: PANTOPRAZOLE SODIUM 40 MG VIAL IVPUSH SCH (10:32)
[2020-11-02 12:25] LABS: URINE APPEARANCE CLEAR; URINE BILIRUBIN NEGATIVE (NEGATIVE); URINE COLOR YELLOW; URINE GLUCOSE (UA) NEGATIVE (NEGATIVE); URINE KETONE 1+ (NEGATIVE); URINE LEUK ESTERASE NEGATIVE (NEGATIVE); URINE NITRITE NEGATIVE (NEGATIVE); URINE PROTEIN NEGATIVE (NEGATIVE); URINE UROBILINOGEN 0.2 mg/dL (0.2-1.0)
[2020-11-02 15:35] VITALS: BMI 35.7
[2020-11-03 05:21] VITALS: BP 112/63; PULSE 94; TEMP 98.3
[2020-11-03] MEDS ORDERED: ACETAMINOPHEN 1000 MG/100 ML VIAL (NON FORMULARY) IVPB ONE (05:52)
[2020-11-03] MEDS: INSULIN SLIDING SCALE (NOVOLOG) 1 VIAL SQ SCH (06:28)
[2020-11-03] MEDS: SODIUM CHLORIDE 1,000 ML IV SCH (06:28)
[2020-11-03] MEDS: PANTOPRAZOLE SODIUM 40 MG VIAL IVPUSH SCH (09:06)
[2020-11-03] MEDS: NICOTINE 7 MG/24 HOURS TOPICAL PATCH TD SCH (09:06)
[2020-11-03] MEDS ORDERED: ENOXAPARIN NA (PORCINE) 40 MG/0.4 ML DISP.SYRIN SQ SCH (10:00)
== END 2020-11-03 09:19 | disposition left against medical advice (07) ==
LOC: JER 22:15 → INTOOBSV 11-02 03:20 → JERBED 11-02 03:20 → UNDOADMOB 11-02 03:20 → JERBED 11-02 12:39 → J5S 11-02 12:39 → JERBED 11-03 07:23
PROVIDERS: ADMIT Internal Medicine; ATTEND Nurse Practitioner Acute Care
PROC: 3E023GC Introduction of Other Therapeutic Substance into Muscle, Percutaneous Approach (ICD-10-PCS; principal; 2020-11-03)
PROC: 3E033NZ Introduction of Analgesics, Hypnotics, Sedatives into Peripheral Vein, Percutaneous Approach (ICD-10-PCS; 2020-11-03)
PROC: 3E033GC Introduction of Other Therapeutic Substance into Peripheral Vein, Percutaneous Approach (ICD-10-PCS; 2020-11-03)
PROC: 3E0337Z Introduction of Electrolytic and Water Balance Substance into Peripheral Vein, Percutaneous Approach (ICD-10-PCS; 2020-11-03)
DX: R11.2 Nausea with vomiting, unspecified (principal); F12.10 Cannabis abuse, uncomplicated; R10.84 Generalized abdominal pain; K57.92 Diverticulitis of intestine, part unspecified, without perforation or abscess without bleeding; Z87.891 Personal history of nicotine dependence; Z29.9 Encounter for prophylactic measures, unspecified
CPT/HCPCS: 36415; 74176-TC; 80053; 80307; 81003; 82962; 83690; 84703; 85025; 86850; 86900; 86901; 93005; 93010; 96361; 96365; 96372; 96375; 99285-25; C9803; G0378; J0131; U0003; U0005

== ENCOUNTER 2020-11-07 15:26 | Emergency (ER) | payer OTHER ==
[2020-11-07 16:18] VITALS: BP 119/77; PULSE 80; TEMP 98; BMI 37.1
[2020-11-07] MEDS ORDERED: NAPROXEN 500 MG TABLET PO ONE (18:38)
[2020-11-07] MEDS ORDERED: NAPROXEN 500 MG TABLET ONE (18:39)
== END 2020-11-07 18:46 | disposition home or self-care (01) ==
LOC: JER 15:26 → JERFT 15:26
DX: R22.32 Localized swelling, mass and lump, left upper limb (principal)
CPT/HCPCS: 76882-TC-RT-FY; 99284-25

== ENCOUNTER 2021-08-11 04:37 | Emergency (ER) | payer OTHER ==
[2021-08-11 05:11] VITALS: TEMP 98.7; BMI 38.7
[2021-08-11] MEDS ORDERED: LACTATED RINGERS SOLUTION 1000 ML INFUS.BAG IV ONE (05:38)
[2021-08-11] MEDS ORDERED: FAMOTIDINE 20 MG/50 ML IVPB 20 MG/50 ML MG IVPB ONE ×2 (05:38→05:54)
[2021-08-11] MEDS ORDERED: ONDANSETRON 4 MG/2 ML VIAL IVPUSH ONE (05:38)
[2021-08-11] MEDS ORDERED: MAG HYDROX/AL HYDROX/SIMETH 30 ML UNIT-DOSE CUP PO ONE (05:38)
[2021-08-11] MEDS ORDERED: ACETAMINOPHEN 1000 MG/100 ML BAG IVPB ONE (05:39)
[2021-08-11] MEDS ORDERED: ACETAMINOPHEN INJECTION 100 ML IVPB ONE (05:53)
[2021-08-11] MEDS ORDERED: ONDANSETRON 4 MG/2 ML VIAL ONE (05:54)
[2021-08-11] MEDS ORDERED: MAG HYDROX/AL HYDROX/SIMETH 30 ML UNIT-DOSE CUP ONE (05:54)
[2021-08-11 06:41] LABS: BASO % 0.5 % (0-2.0); HEMATOCRIT 39.5 % (32.4-45.2); HEMOGLOBIN 13.2 GM/dL (10.7-15.3); LYMPH % 18.6 % (8-40); MCH 28.8 pg (25.7-33.7); MCHC 33.3 g/dl (32.0-36.0); MEAN CELL VOLUME 86.3 fl (80-96); MEAN PLT VOLUME 7.4 fl (7.5-11.1); MONO % 6.6 % (3.8-10.2); NEUT % 73.3 % (42.8-82.8); PLATELET COUNT 246 10^3/uL (134-434); RBC 4.58 M/mm3 (3.60-5.2); RDW 13.9 % (11.6-15.6); WHITE BLOOD COUNT 7.1 K/mm3 (4.0-10.0)
[2021-08-11 07:05] LABS: ALBUMIN 3.9 g/dl (3.4-5.0); BLOOD UREA NITROGEN 9.1 mg/dL (7-18); CALCIUM 8.7 mg/dL (8.5-10.1); MAGNESIUM 2.2 mg/dL (1.8-2.4)
[2021-08-11 07:09] LABS: CREATININE 0.7 mg/dL (0.55-1.3)
[2021-08-11 07:10] LABS: BILIRUBIN,TOTAL 0.5 mg/dL (0.2-1); TOT PROT 7.1 g/dl (6.4-8.2)
[2021-08-11 07:42] VITALS: BP 132/78; PULSE 66
== END 2021-08-11 10:14 | disposition home or self-care (01) ==
LOC: JER 04:37
PROC: 3E033GC Introduction of Other Therapeutic Substance into Peripheral Vein, Percutaneous Approach (ICD-10-PCS; principal; 2021-08-11)
DX: R10.13 Epigastric pain (principal)
CPT/HCPCS: 36415; 76700-TC; 80053; 83690; 83735; 84703; 85025; 93005; 93010; 99285-25

== ENCOUNTER 2021-08-24 05:11 | Emergency (ER) | payer OTHER ==
[2021-08-24 05:51] VITALS: TEMP 98; BMI 38.7
[2021-08-24] MEDS ORDERED: ACETAMINOPHEN 1000 MG/100 ML BAG IVPB ONE (05:54)
[2021-08-24] MEDS ORDERED: ONDANSETRON 4 MG/2 ML VIAL IVPUSH ONE (05:55)
[2021-08-24] MEDS ORDERED: ACETAMINOPHEN INJECTION 100 ML IVPB ONE (06:02)
[2021-08-24] MEDS ORDERED: ONDANSETRON 4 MG/2 ML VIAL ONE (06:02)
[2021-08-24] MEDS ORDERED: SODIUM CHLORIDE 0.9% 500 ML INFUS.BAG IV ONE (06:21)
[2021-08-24 06:28] LABS: BASO % 0.4 % (0-2.0); EOS % 1.1 % (0-4.5); HEMATOCRIT 37.1 % (32.4-45.2); HEMOGLOBIN 12.6 GM/dL (10.7-15.3); LYMPH % 18.6 % (8-40); MCH 29.1 pg (25.7-33.7); MCHC 34.1 g/dl (32.0-36.0); MEAN CELL VOLUME 85.5 fl (80-96); MEAN PLT VOLUME 6.7 fl (7.5-11.1); MONO % 7.7 % (3.8-10.2); NEUT % 72.2 % (42.8-82.8); PLATELET COUNT 253 10^3/uL (134-434); RBC 4.33 M/mm3 (3.60-5.2); RDW 13.8 % (11.6-15.6)
[2021-08-24 06:41] LABS: ALBUMIN 3.8 g/dl (3.4-5.0); CALCIUM 8.4 mg/dL (8.5-10.1); MAGNESIUM 1.9 mg/dL (1.8-2.4)
[2021-08-24 06:42] LABS: BLOOD UREA NITROGEN 8.3 mg/dL (7-18)
[2021-08-24 06:44] LABS: CREATININE 0.6 mg/dL (0.55-1.3)
[2021-08-24 06:46] LABS: BILIRUBIN,TOTAL 0.6 mg/dL (0.2-1); TOT PROT 6.9 g/dl (6.4-8.2)
[2021-08-24 08:16] LABS: URINE APPEARANCE CLOUDY; URINE BILIRUBIN NEGATIVE (NEGATIVE); URINE COLOR YELLOW; URINE GLUCOSE (UA) NEGATIVE (NEGATIVE); URINE KETONE TRACE (NEGATIVE); URINE LEUK ESTERASE NEGATIVE (NEGATIVE); URINE NITRITE NEGATIVE (NEGATIVE); URINE PROTEIN NEGATIVE (NEGATIVE); URINE UROBILINOGEN 0.2 mg/dL (0.2-1.0)
[2021-08-24] MEDS ORDERED: FAMOTIDINE 10 MG TABLET PO ONE (08:49)
[2021-08-24] MEDS ORDERED: FAMOTIDINE 10 MG TABLET ONE (09:39)
[2021-08-24 10:33] VITALS: BP 120/79; PULSE 78
== END 2021-08-24 10:10 | disposition home or self-care (01) ==
LOC: JER 05:11
PROC: 3E0333Z Introduction of Anti-inflammatory into Peripheral Vein, Percutaneous Approach (ICD-10-PCS; principal; 2021-08-24)
PROC: 3E033GC Introduction of Other Therapeutic Substance into Peripheral Vein, Percutaneous Approach (ICD-10-PCS; 2021-08-24)
DX: R11.2 Nausea with vomiting, unspecified (principal); K52.9 Noninfective gastroenteritis and colitis, unspecified; R10.9 Unspecified abdominal pain
CPT/HCPCS: 36415; 74177-TC; 80053; 81003; 83690; 83735; 84703; 85025; 87086; 93005; 93010; 99285-25; Q9967

== ENCOUNTER 2021-11-29 09:14 | Emergency (ER) | payer OTHER ==
[2021-11-29] MEDS ORDERED: FAMOTIDINE 20 MG/50 ML IVPB 20 MG/50 ML MG IVPB ONE ×2 (09:32→10:49)
[2021-11-29] MEDS ORDERED: ONDANSETRON 4 MG/2 ML VIAL IVPUSH ONE (09:32)
[2021-11-29 09:39] VITALS: BP 123/87; TEMP 97.1; BMI 38.7
[2021-11-29] MEDS ORDERED: ACETAMINOPHEN 1000 MG/100 ML BAG IVPB ONE (09:40)
[2021-11-29] MEDS ORDERED: LACTATED RINGERS SOLUTION 1000 ML INFUS.BAG IV ONE (09:40)
[2021-11-29] MEDS ORDERED: MAG HYDROX/AL HYDROX/SIMETH -MYLANTA- ORAL SUSPENSION PO ONE (09:40)
[2021-11-29] MEDS ORDERED: ACETAMINOPHEN INJECTION 100 ML IVPB ONE (10:48)
[2021-11-29] MEDS ORDERED: MAG HYDROX/AL HYDROX/SIMETH 30 ML UNIT-DOSE CUP ONE (10:48)
[2021-11-29] MEDS ORDERED: ONDANSETRON 4 MG/2 ML VIAL ONE (10:49)
[2021-11-29 11:27] LABS: BASO % 0.3 % (0-2.0); EOS % 0.4 % (0-4.5); HEMATOCRIT 40.5 % (32.4-45.2); HEMOGLOBIN 13.4 GM/dL (10.7-15.3); LYMPH % 18.3 % (8-40); MCH 29.2 pg (25.7-33.7); MCHC 33.1 g/dl (32.0-36.0); MEAN CELL VOLUME 88.3 fl (80-96); MEAN PLT VOLUME 7.4 fl (7.5-11.1); PLATELET COUNT 254 10^3/uL (134-434); RBC 4.58 M/mm3 (3.60-5.2); WHITE BLOOD COUNT 7.3 K/mm3 (4.0-10.0)
[2021-11-29 11:52] LABS: CALCIUM 9.1 mg/dL (8.5-10.1)
[2021-11-29 11:53] LABS: ALBUMIN 3.9 g/dl (3.4-5.0); BLOOD UREA NITROGEN 11.4 mg/dL (7-18)
[2021-11-29 11:56] LABS: CREATININE 0.7 mg/dL (0.55-1.3)
[2021-11-29 11:57] LABS: BILIRUBIN,TOTAL 0.7 mg/dL (0.2-1); TOT PROT 7.4 g/dl (6.4-8.2)
[2021-11-29 12:59] LABS: HCG,QUALITATIVE URINE Negative
[2021-11-29 13:07] LABS: PH,URINE 6.5 (5.0-8.0); URINE APPEARANCE CLEAR; URINE BILIRUBIN NEGATIVE (NEGATIVE); URINE COLOR YELLOW; URINE GLUCOSE (UA) NEGATIVE (NEGATIVE); URINE KETONE TRACE (NEGATIVE); URINE LEUK ESTERASE NEGATIVE (NEGATIVE); URINE NITRITE NEGATIVE (NEGATIVE); URINE PROTEIN NEGATIVE (NEGATIVE); URINE UROBILINOGEN 0.2 mg/dL (0.2-1.0)
[2021-11-29 13:28] VITALS: PULSE 103; RESP 18
== END 2021-11-29 13:29 | disposition home or self-care (01) ==
LOC: JER 09:14
PROC: 3E0333Z Introduction of Anti-inflammatory into Peripheral Vein, Percutaneous Approach (ICD-10-PCS; principal; 2021-11-29)
PROC: 3E033GC Introduction of Other Therapeutic Substance into Peripheral Vein, Percutaneous Approach (ICD-10-PCS; 2021-11-29)
PROC: 3E033GC Introduction of Other Therapeutic Substance into Peripheral Vein, Percutaneous Approach (ICD-10-PCS; 2021-11-29)
DX: R10.13 Epigastric pain (principal)
CPT/HCPCS: 36415; 80053; 81003; 83690; 84703; 85025; 87086; 93005; 93010; 99284-25

== ENCOUNTER 2021-12-07 07:41 | Emergency (ER) | payer OTHER ==
[2021-12-07] MEDS ORDERED: LACTATED RINGERS SOLUTION 1000 ML INFUS.BAG IV ONE (07:50)
[2021-12-07] MEDS ORDERED: HALOPERIDOL LACTATE 5 MG/ML IM ONE ×2 (07:51→08:10)
[2021-12-07] MEDS ORDERED: PANTOPRAZOLE SODIUM 40 MG VIAL IVPUSH ONE (08:07)
[2021-12-07] MEDS ORDERED: FAMOTIDINE 20 MG/50 ML IVPB 20 MG/50 ML MG IVPB ONE ×2 (08:08→08:23)
[2021-12-07 08:23] VITALS: BMI 40.3
[2021-12-07] MEDS ORDERED: ONDANSETRON 4 MG/2 ML VIAL IVPUSH ONE (08:28)
[2021-12-07 08:31] LABS: BASO % 0.3 % (0-2.0); HEMATOCRIT 41.4 % (32.4-45.2); HEMOGLOBIN 13.4 GM/dL (10.7-15.3); LYMPH % 17.9 % (8-40); MCH 28.6 pg (25.7-33.7); MCHC 32.3 g/dl (32.0-36.0); MEAN CELL VOLUME 88.6 fl (80-96); MEAN PLT VOLUME 7.3 fl (7.5-11.1); MONO % 5.9 % (3.8-10.2); NEUT % 74.9 % (42.8-82.8); PLATELET COUNT 296 10^3/uL (134-434); RBC 4.67 M/mm3 (3.60-5.2); RDW 14.2 % (11.6-15.6); WHITE BLOOD COUNT 9.8 K/mm3 (4.0-10.0)
[2021-12-07 08:53] LABS: CALCIUM 9.1 mg/dL (8.5-10.1)
[2021-12-07 08:54] LABS: ALBUMIN 4.2 g/dl (3.4-5.0); BLOOD UREA NITROGEN 9.6 mg/dL (7-18)
[2021-12-07 08:57] LABS: CREATININE 0.8 mg/dL (0.55-1.3)
[2021-12-07 08:58] LABS: BILIRUBIN,TOTAL 0.8 mg/dL (0.2-1); TOT PROT 7.2 g/dl (6.4-8.2)
[2021-12-07] MEDS ORDERED: ONDANSETRON 4 MG/2 ML VIAL ONE (09:05)
[2021-12-07] MEDS ORDERED: ACETAMINOPHEN 1000 MG/100 ML BAG IVPB ONE (09:18)
[2021-12-07] MEDS ORDERED: ACETAMINOPHEN INJECTION 100 ML IVPB ONE (09:27)
[2021-12-07 11:06] VITALS: BP 128/80; PULSE 72; RESP 14; TEMP 98.2
[2021-12-07] MEDS ORDERED: KETOROLAC TROMETHAMINE 15 MG/ML VIAL ONE (13:09)
== END 2021-12-07 11:16 | disposition home or self-care (01) ==
LOC: JER 07:41
PROC: 3E0333Z Introduction of Anti-inflammatory into Peripheral Vein, Percutaneous Approach (ICD-10-PCS; principal; 2021-12-07)
PROC: 3E033GC Introduction of Other Therapeutic Substance into Peripheral Vein, Percutaneous Approach (ICD-10-PCS; 2021-12-07)
PROC: 3E033GC Introduction of Other Therapeutic Substance into Peripheral Vein, Percutaneous Approach (ICD-10-PCS; 2021-12-07)
PROC: 3E023GC Introduction of Other Therapeutic Substance into Muscle, Percutaneous Approach (ICD-10-PCS; 2021-12-07)
DX: R11.2 Nausea with vomiting, unspecified (principal); R10.13 Epigastric pain
CPT/HCPCS: 36415; 80053; 83605; 83690; 84703; 85025; 93005; 93010; 99284-25

== ENCOUNTER 2022-02-27 18:00 | Emergency (ER) | payer OTHER ==
[2022-02-27 18:50] VITALS: RESP 18; TEMP 98.1; BMI 37.1
[2022-02-27] MEDS ORDERED: SODIUM CHLORIDE 0.9% 500 ML INFUS.BAG IV ONE (19:35)
[2022-02-27] MEDS ORDERED: FAMOTIDINE 20 MG/50 ML IVPB 20 MG/50 ML MG IVPB ONE ×2 (20:23→20:57)
[2022-02-27 20:30] LABS: BASO % 0.4 % (0-2.0); EOS % 0.9 % (0-4.5); HEMATOCRIT 38.1 % (32.4-45.2); HEMOGLOBIN 12.5 GM/dL (10.7-15.3); LYMPH % 17.3 % (8-40); MCH 28.8 pg (25.7-33.7); MCHC 32.7 g/dl (32.0-36.0); MEAN PLT VOLUME 7.2 fl (7.5-11.1); NEUT % 75.4 % (42.8-82.8); PLATELET COUNT 258 10^3/uL (134-434); RBC 4.33 M/mm3 (3.60-5.2); RDW 13.7 % (11.6-15.6); WHITE BLOOD COUNT 8.5 K/mm3 (4.0-10.0)
[2022-02-27] MEDS ORDERED: HALOPERIDOL LACTATE 5 MG/ML IM ONE ×2 (20:46→21:16)
[2022-02-27 20:51] LABS: CALCIUM 8.8 mg/dL (8.5-10.1)
[2022-02-27 20:52] LABS: ALBUMIN 3.8 g/dl (3.4-5.0); BLOOD UREA NITROGEN 6.3 mg/dL (7-18)
[2022-02-27 20:55] LABS: CREATININE 0.7 mg/dL (0.55-1.3)
[2022-02-27 20:56] LABS: BILIRUBIN,TOTAL 0.5 mg/dL (0.2-1); TOT PROT 6.8 g/dl (6.4-8.2)
[2022-02-27] MEDS ORDERED: MAG HYDROX/AL HYDROX/SIMETH 30 ML UNIT-DOSE CUP PO ONE (21:16)
[2022-02-27] MEDS ORDERED: MAG HYDROX/AL HYDROX/SIMETH 30 ML UNIT-DOSE CUP ONE (21:16)
[2022-02-27 22:51] VITALS: BP 119/77; PULSE 80
== END 2022-02-27 22:51 | disposition home or self-care (01) ==
LOC: JER 18:00
PROC: 3E033GC Introduction of Other Therapeutic Substance into Peripheral Vein, Percutaneous Approach (ICD-10-PCS; principal; 2022-02-27)
PROC: 3E023GC Introduction of Other Therapeutic Substance into Muscle, Percutaneous Approach (ICD-10-PCS; 2022-02-27)
DX: R11.2 Nausea with vomiting, unspecified (principal); R10.13 Epigastric pain
CPT/HCPCS: 36415; 71045-TC-FY; 80053; 83690; 84703; 85025; 93005; 93010; 99285-25

== ENCOUNTER 2022-02-28 13:06 | Emergency (ER) | payer OTHER ==
[2022-02-28 13:29] VITALS: BP 134/66; PULSE 108; RESP 20; TEMP 98; BMI 37.1
== END 2022-02-28 15:31 | disposition home or self-care (01) ==
LOC: JERFT 13:06 → JER 13:06 → JERFT 15:31
PROC: 3E023GC Introduction of Other Therapeutic Substance into Muscle, Percutaneous Approach (ICD-10-PCS; principal; 2022-02-28)
DX: R25.1 Tremor, unspecified (principal); R40.0 Somnolence
CPT/HCPCS: 99284-25

== ENCOUNTER 2022-10-27 04:52 | Emergency (ER) | payer SELFPAY ==
[2022-10-27 05:02] VITALS: BMI 37.9
[2022-10-27] MEDS ORDERED: FAMOTIDINE 20 MG/50 ML IVPB 20 MG/50 ML MG IVPB ONE ×2 (05:18→05:27)
[2022-10-27] MEDS ORDERED: SODIUM CHLORIDE 0.9% 500 ML INFUS.BAG IV ONE (05:18)
[2022-10-27] MEDS ORDERED: ONDANSETRON 4 MG/2 ML VIAL IVPUSH ONE (05:18)
[2022-10-27] MEDS ORDERED: ONDANSETRON 4 MG/2 ML VIAL ONE (05:27)
[2022-10-27 06:52] LABS: BASO % 0.3 % (0-2.0); EOS % 0.8 % (0-4.5); HEMATOCRIT 39.7 % (32.4-45.2); HEMOGLOBIN 12.9 GM/dL (10.7-15.3); LYMPH % 8.7 % (8-40); MCH 28.2 pg (25.7-33.7); MCHC 32.5 g/dl (32.0-36.0); MEAN CELL VOLUME 86.9 fl (80-96); MEAN PLT VOLUME 7.9 fl (7.5-11.1); MONO % 4.7 % (3.8-10.2); NEUT % 85.5 % (42.8-82.8); PLATELET COUNT 292 10^3/uL (134-434); RBC 4.57 M/mm3 (3.60-5.2); RDW 14.3 % (11.6-15.6); WHITE BLOOD COUNT 13.2 K/mm3 (4.0-10.0)
[2022-10-27 07:22] LABS: POTASSIUM 4.1 mmol/L (3.5-5.1)
[2022-10-27 07:24] LABS: CALCIUM 8.3 mg/dL (8.5-10.1)
[2022-10-27 07:25] LABS: ALBUMIN 3.7 g/dl (3.4-5.0); BLOOD UREA NITROGEN 9.5 mg/dL (7-18); MAGNESIUM 1.9 mg/dL (1.8-2.4)
[2022-10-27 07:28] LABS: CREATININE 0.8 mg/dL (0.55-1.3)
[2022-10-27 07:29] LABS: BILIRUBIN,TOTAL 0.6 mg/dL (0.2-1); TOT PROT 6.9 g/dl (6.4-8.2)
[2022-10-27 08:09] LABS: URINE APPEARANCE CLOUDY; URINE BILIRUBIN NEGATIVE (NEGATIVE); URINE COLOR YELLOW; URINE GLUCOSE (UA) NEGATIVE (NEGATIVE); URINE KETONE NEGATIVE (NEGATIVE); URINE LEUK ESTERASE NEGATIVE (NEGATIVE); URINE NITRITE NEGATIVE (NEGATIVE); URINE PROTEIN NEGATIVE (NEGATIVE); URINE UROBILINOGEN 0.2 mg/dL (0.2-1.0)
[2022-10-27 09:03] VITALS: BP 118/79; PULSE 97; RESP 14; TEMP 97.6
== END 2022-10-27 08:56 | disposition home or self-care (01) ==
LOC: JER 04:52
PROC: 3E033GC Introduction of Other Therapeutic Substance into Peripheral Vein, Percutaneous Approach (ICD-10-PCS; principal; 2022-10-27)
PROC: 3E033GC Introduction of Other Therapeutic Substance into Peripheral Vein, Percutaneous Approach (ICD-10-PCS; 2022-10-27)
DX: R11.2 Nausea with vomiting, unspecified (principal); K29.00 Acute gastritis without bleeding; Z20.822 Contact with and (suspected) exposure to COVID-19
CPT/HCPCS: 0241U-QW; 36415; 71046-TC-FY; 80053; 81003; 83690; 83735; 84703; 85025; 87086; 93005; 93010; 99285-25

== ENCOUNTER 2022-11-03 13:11 | Emergency (ER) | payer SELFPAY ==
[2022-11-03 13:18] VITALS: BP 116/73; PULSE 78; RESP 18; TEMP 98.2; BMI 37.4
[2022-11-03] MEDS ORDERED: SODIUM CHLORIDE 0.9% 500 ML INFUS.BAG IV ONE (13:49)
[2022-11-03] MEDS ORDERED: ONDANSETRON 4 MG/2 ML VIAL IVPUSH ONE (13:51)
[2022-11-03] MEDS ORDERED: ONDANSETRON 4 MG/2 ML VIAL ONE (13:59)
[2022-11-03 14:27] LABS: BASO % 0.2 % (0-2.0); EOS % 0.5 % (0-4.5); HEMATOCRIT 36.6 % (32.4-45.2); HEMOGLOBIN 12.3 GM/dL (10.7-15.3); MCH 28.8 pg (25.7-33.7); MCHC 33.6 g/dl (32.0-36.0); MEAN CELL VOLUME 85.7 fl (80-96); MEAN PLT VOLUME 7.3 fl (7.5-11.1); MONO % 6.9 % (3.8-10.2); NEUT % 70.4 % (42.8-82.8); PLATELET COUNT 291 10^3/uL (134-434); RBC 4.27 M/mm3 (3.60-5.2); RDW 14.1 % (11.6-15.6)
[2022-11-03 14:38] LABS: POTASSIUM 3.8 mmol/L (3.5-5.1)
[2022-11-03 14:39] LABS: ALBUMIN 4.2 g/dl (3.4-5.0); BLOOD UREA NITROGEN 5.2 mg/dL (7-18); CALCIUM 8.9 mg/dL (8.5-10.1); MAGNESIUM 2.1 mg/dL (1.8-2.4)
[2022-11-03 14:43] LABS: CREATININE 0.6 mg/dL (0.55-1.3)
[2022-11-03 14:45] LABS: BILIRUBIN,TOTAL 0.7 mg/dL (0.2-1); TOT PROT 7.2 g/dl (6.4-8.2)
[2022-11-03] MEDS ORDERED: HALOPERIDOL LACTATE 5 MG/ML IM ONE ×2 (15:09→15:12)
== END 2022-11-03 15:40 | disposition home or self-care (01) ==
LOC: JERFT 13:11
PROC: 3E033NZ Introduction of Analgesics, Hypnotics, Sedatives into Peripheral Vein, Percutaneous Approach (ICD-10-PCS; principal; 2022-11-03)
PROC: 3E023GC Introduction of Other Therapeutic Substance into Muscle, Percutaneous Approach (ICD-10-PCS; 2022-11-03)
DX: F41.9 Anxiety disorder, unspecified (principal); R11.2 Nausea with vomiting, unspecified; F12.988 Cannabis use, unspecified with other cannabis-induced disorder
CPT/HCPCS: 36415; 80053; 83735; 84703; 85025; 93005; 93010; 99284-25

== ENCOUNTER 2022-11-04 09:37 | Emergency (ER) | payer SELFPAY ==
[2022-11-04 09:48] VITALS: BP 134/83; PULSE 89; RESP 18; TEMP 98.5; BMI 37.4
== END 2022-11-04 10:56 | disposition home or self-care (01) ==
LOC: JER 09:37
DX: R42 Dizziness and giddiness (principal); R53.83 Other fatigue; R68.2 Dry mouth, unspecified
CPT/HCPCS: 82962; 83036; 99283-25

== ENCOUNTER 2022-11-05 06:13 | Emergency (ER) | payer OTHER ==
[2022-11-05 06:21] VITALS: RESP 18; BMI 37.4
[2022-11-05] MEDS ORDERED: ACETAMINOPHEN 1000 MG/100 ML BAG IVPB ONE (08:11)
[2022-11-05] MEDS ORDERED: FAMOTIDINE 20 MG/50 ML IVPB 20 MG/50 ML MG IVPB ONE ×2 (08:11→08:25)
[2022-11-05] MEDS ORDERED: SODIUM CHLORIDE 0.9% 500 ML INFUS.BAG IV ONE (08:11)
[2022-11-05] MEDS ORDERED: ONDANSETRON 4 MG/2 ML VIAL IVPUSH ONE (08:11)
[2022-11-05] MEDS ORDERED: ONDANSETRON 4 MG/2 ML VIAL ONE (08:25)
[2022-11-05] MEDS ORDERED: ACETAMINOPHEN INJECTION 100 ML IVPB ONE (08:25)
[2022-11-05 09:04] LABS: BASO % 0.2 % (0-2.0); EOS % 0.1 % (0-4.5); HEMATOCRIT 38.5 % (32.4-45.2); HEMOGLOBIN 13.2 GM/dL (10.7-15.3); LYMPH % 19.4 % (8-40); MCH 29.3 pg (25.7-33.7); MCHC 34.3 g/dl (32.0-36.0); MEAN CELL VOLUME 85.6 fl (80-96); MEAN PLT VOLUME 7.1 fl (7.5-11.1); MONO % 5.8 % (3.8-10.2); NEUT % 74.5 % (42.8-82.8); PLATELET COUNT 287 10^3/uL (134-434); RBC 4.49 M/mm3 (3.60-5.2); RDW 14.2 % (11.6-15.6); WHITE BLOOD COUNT 9.1 K/mm3 (4.0-10.0)
[2022-11-05 09:21] LABS: POTASSIUM 3.7 mmol/L (3.5-5.1)
[2022-11-05 09:24] LABS: ALBUMIN 4.1 g/dl (3.4-5.0); BLOOD UREA NITROGEN 4.6 mg/dL (7-18)
[2022-11-05 09:26] LABS: CREATININE 0.7 mg/dL (0.55-1.3)
[2022-11-05 09:28] LABS: BILIRUBIN,TOTAL 0.9 mg/dL (0.2-1); TOT PROT 7.4 g/dl (6.4-8.2)
[2022-11-05 11:28] LABS: PH,URINE 5.5 (5.0-8.0); URINE APPEARANCE CLEAR; URINE BILIRUBIN NEGATIVE (NEGATIVE); URINE COLOR YELLOW; URINE GLUCOSE (UA) NEGATIVE (NEGATIVE); URINE KETONE 2+ (NEGATIVE); URINE LEUK ESTERASE NEGATIVE (NEGATIVE); URINE NITRITE NEGATIVE (NEGATIVE); URINE PROTEIN NEGATIVE (NEGATIVE); URINE UROBILINOGEN 0.2 mg/dL (0.2-1.0)
[2022-11-05 12:47] VITALS: BP 116/74; PULSE 78; TEMP 98.2
== END 2022-11-05 13:46 | disposition home or self-care (01) ==
LOC: JER 06:13
PROC: 3E033GC Introduction of Other Therapeutic Substance into Peripheral Vein, Percutaneous Approach (ICD-10-PCS; principal; 2022-11-05)
PROC: 3E033GC Introduction of Other Therapeutic Substance into Peripheral Vein, Percutaneous Approach (ICD-10-PCS; 2022-11-05)
PROC: 3E033GC Introduction of Other Therapeutic Substance into Peripheral Vein, Percutaneous Approach (ICD-10-PCS; 2022-11-05)
DX: R11.2 Nausea with vomiting, unspecified (principal); R10.13 Epigastric pain; Z20.822 Contact with and (suspected) exposure to COVID-19
CPT/HCPCS: 0241U-QW; 36415; 74177-TC; 80053; 81003; 83690; 84484; 84703; 85025; 93005; 93010; 99285-25; Q9967

== ENCOUNTER 2022-11-28 06:02 | Emergency (ER) | payer OTHER ==
[2022-11-28 06:07] VITALS: RESP 18; BMI 36.3
[2022-11-28] MEDS ORDERED: KETOROLAC TROMETHAMINE 30 MG/1 ML VIAL IM ONE (07:30)
[2022-11-28] MEDS ORDERED: KETOROLAC TROMETHAMINE 30 MG/1 ML VIAL ONE (07:34)
[2022-11-28] MEDS ORDERED: LIDOCAINE 5% TOPICAL PATCH TP ONE (09:02)
[2022-11-28] MEDS ORDERED: LIDOCAINE 4% PATCH TP ONE (09:07)
[2022-11-28 10:39] VITALS: BP 116/75; PULSE 64; TEMP 97.8
[2022-11-28] MEDS ORDERED: LIDOCAINE PATCH REMOVAL MC SCH (22:00)
== END 2022-11-28 11:02 | disposition home or self-care (01) ==
LOC: JER 06:02
PROC: 3E0233Z Introduction of Anti-inflammatory into Muscle, Percutaneous Approach (ICD-10-PCS; principal; 2022-11-28)
DX: M79.622 Pain in left upper arm (principal)
CPT/HCPCS: 93971; 99284-25

== ENCOUNTER 2022-11-29 03:48 | Emergency (ER) | payer OTHER ==
[2022-11-29 03:58] VITALS: BMI 36.3
[2022-11-29] MEDS ORDERED: LIDOCAINE 4% PATCH TP ONE ×2 (04:14→04:18)
[2022-11-29] MEDS ORDERED: IBUPROFEN 600 MG TABLET (FP) PO ONE ×2 (04:14→04:17)
[2022-11-29] MEDS ORDERED: CYCLOBENZAPRINE HCL 5 MG TABLET PO ONE (04:16)
[2022-11-29] MEDS ORDERED: CYCLOBENZAPRINE HCL 10 MG TABLET (FP) ONE (04:18)
[2022-11-29 05:09] VITALS: BP 108/63; PULSE 66; RESP 15; TEMP 97.7
== END 2022-11-29 05:13 | disposition home or self-care (01) ==
LOC: JER 03:48
DX: M79.602 Pain in left arm (principal)
CPT/HCPCS: 99283-25

== ENCOUNTER 2023-01-17 04:12 | Emergency (ER) | payer OTHER ==
[2023-01-17 04:37] VITALS: PULSE 82; BMI 32.2
[2023-01-17] MEDS ORDERED: ACETAMINOPHEN 1000 MG/100 ML BAG IVPB ONE (04:51)
[2023-01-17] MEDS ORDERED: SODIUM CHLORIDE 0.9% 500 ML INFUS.BAG IV ONE (04:51)
[2023-01-17] MEDS ORDERED: ONDANSETRON 4 MG/2 ML VIAL IVPUSH ONE (04:51)
[2023-01-17] MEDS ORDERED: ACETAMINOPHEN INJECTION 100 ML IVPB ONE (04:59)
[2023-01-17] MEDS ORDERED: ONDANSETRON 4 MG/2 ML VIAL ONE (04:59)
[2023-01-17 05:36] LABS: BASO % 0.2 % (0-2.0); EOS % 0.1 % (0-4.5); HEMATOCRIT 39.9 % (32.4-45.2); HEMOGLOBIN 12.9 GM/dL (10.7-15.3); LYMPH % 12.8 % (8-40); MCH 28.2 pg (25.7-33.7); MCHC 32.3 g/dl (32.0-36.0); MEAN CELL VOLUME 87.5 fl (80-96); MEAN PLT VOLUME 7.2 fl (7.5-11.1); MONO % 5.1 % (3.8-10.2); NEUT % 81.8 % (42.8-82.8); PLATELET COUNT 272 10^3/uL (134-434); RBC 4.56 M/mm3 (3.60-5.2); RDW 14.3 % (11.6-15.6); WHITE BLOOD COUNT 9.2 K/mm3 (4.0-10.0)
[2023-01-17 05:45] LABS: POTASSIUM 4.4 mmol/L (3.5-5.1)
[2023-01-17 05:47] LABS: BLOOD UREA NITROGEN 8.1 mg/dL (7-18); CALCIUM 8.5 mg/dL (8.5-10.1)
[2023-01-17 05:48] LABS: ALBUMIN 3.7 g/dl (3.4-5.0); MAGNESIUM 1.9 mg/dL (1.8-2.4)
[2023-01-17 05:50] LABS: CREATININE 0.8 mg/dL (0.55-1.3)
[2023-01-17 05:51] LABS: PHOSPHOROUS 3.7 mg/dL (2.5-4.9)
[2023-01-17 05:52] LABS: BILIRUBIN,TOTAL 0.8 mg/dL (0.2-1)
[2023-01-17 08:16] VITALS: BP 122/74; RESP 16; TEMP 98.4
== END 2023-01-17 09:02 | disposition home or self-care (01) ==
LOC: JER 04:12
PROC: 3E023NZ Introduction of Analgesics, Hypnotics, Sedatives into Muscle, Percutaneous Approach (ICD-10-PCS; principal; 2023-01-17)
PROC: 3E023GC Introduction of Other Therapeutic Substance into Muscle, Percutaneous Approach (ICD-10-PCS; 2023-01-17)
DX: R11.2 Nausea with vomiting, unspecified (principal); R10.9 Unspecified abdominal pain; R19.7 Diarrhea, unspecified; R10.13 Epigastric pain; R50.9 Fever, unspecified; R63.4 Abnormal weight loss
CPT/HCPCS: 36415; 74177-TC; 80053; 83690; 83735; 84100; 84484; 84703; 85025; 93005; 93010; 99285-25; Q9967